=== PATIENT | male | born 1945 | race Caucasian/White ===

== ENCOUNTER → 2022-10-10 | Outpatient (CLI) | payer MEDICARE, OTHER ==
[~2022-10-10] MED LIST: RT-ALBUTEROL SULF 2.5 MG/3 ML PRE-MIX VIAL INH ONE
== END ==
LOC: RT 08:43
PROVIDERS: ATTEND Internal Medicine Hematology & Oncology
DX: C34.32 Malignant neoplasm of lower lobe, left bronchus or lung (principal)
CPT/HCPCS: 94060; 94726; 94729

== ENCOUNTER 2022-10-14 10:56 | Day surgery (SDC) | payer MEDICARE, OTHER ==
[~2022-10-14] VITALS: Ht 180.3 cm; Wt 62.5 kg
[2022-10-14] VITALS (7 sets, daily range): BP systolic 116–146; BP diastolic 63–87
[2022-10-14] MEDS ORDERED: ceFAZolin INJECTION 2,000 MG in NS (IVPB) 50 ML 50 ML IV ONE (11:30)
[2022-10-14] MEDS ORDERED: ceFAZolin INJECTION 2,000 MG ONE (11:32)
[2022-10-14] MEDS ORDERED: NS (IVPB) 50 ML 50 ML ONE (11:32)
[2022-10-14] MEDS ORDERED: LACTATED RINGERS 1,000 ML 1,000 ML IV PRN (11:45)
--- NOTE | 2022-10-14 12:40 | Progress Note-Pre Operative ---
Pre-Operative Progress Note Date of Available H&P: Oct 13, 2022 Date H&P Reviewed: Oct 14, 2022 Time H&P Reviewed: 12:39 History & Physical: H&P Reviewed, Patient Examed, No changes noted Pre-Operative Diagnosis: Left lung cancer SONYA REAL DO Oct 14, 2022 12:40
[2022-10-14] MEDS ORDERED: 0.9% SODIUM CHLORIDE PF INJ 20 ML VIAL ONE (13:12)
[2022-10-14] MEDS ORDERED: HEParin (CENTRAL IV FLUSH) 500 UNIT/5 ML SYR ONE (13:13)
[2022-10-14] MEDS ORDERED: LIDOCAINE/EPI 1%-1:200,000 (XYLOCAINE) 30 ML VIAL ONE (13:14)
--- NOTE | 2022-10-14 14:09 | Discharge Inst-Simple/Standard ---
Discharge Inst-Standard Patient Instructions/Follow Up Plan of Care/Instructions/FU: 2 weeks Josselyn Activity as Tolerated: No Discharge Diet: Regular Diet Other Inst to Patient Follow up Appt: Make appointment for 2 week. Instructions: No lifting greater than 10 pounds. No strenuous activity. May shower in 24 hours, no tub bath or soaking. Use incentive spirometer at home as directed. No Smoking Skin/Wound Care: You have special glue over your incision that will fall off on it's own. Ice pack on 15 min and off 30 min and then repeat for first 48 hours. Symptoms to Report: Appetite Changes, Extremity Discoloration, Numbness/Tingling, Swelling Increased, Bleeding Excessive, Eyesight Changes, Pain Increased, Urine Color Change, Constipation(Persistent), Fever over 101 degree F, Pain/Pressure in chest, Urinating Difficulty, Cough Up/Vomit Blood, Heart Beat Irreg/Pounding, Pain/Pressure in jaw, Vaginal Bleeding Increase, Cramps in feet or legs, Lig htheadedness, Pain/Pressure in shoulder, Diarrhea(Persistent), Memory Changes Suddenly, Questions/Concerns, Weight gain consecutive days, Dizziness/Fainting, Nausea/Vomiting, Shortness of Breath, Weight gain over 2 pounds If questions or concerns contact your physician Or seek help at emergency department. SONYA REAL DO Oct 14, 2022 14:09
--- NOTE | 2022-10-14 14:14 | Anesthesia-General Post-Op ---
MAC Patient Condition Mental Status/LOC: Same as Preop Cardiovascular: Satisfactory Nausea/Vomiting: Absent Respiratory: Satisfactory Pain: Controlled Complications: Absent Post Op Complications Complications None Follow Up Care/Instructions Patient Instructions None needed. Anesthesiology Discharge Order Discharge Order Patient is doing well, no complaints, stable vital signs, no apparent adverse anesthesia problems. No complications reported per nursing. SHAISTA CRAIN CRNA Oct 14, 2022 14:14
--- NOTE | 2022-10-14 14:44 | Diagnostic Imaging Report ---
CHEST 1 VIEW, AP/PA ONLY Indication: Port placement Comparison: None available. Findings: Right IJ Port-A-Cath with tip terminating in the mid SVC. Left midlung zone masslike consolidation is suspicious for neoplasm. Bilateral upper lobe consolidations could be infectious or neoplastic. Small left pleural effusion. No pneumothorax. Impression: 1. Well-positioned right IJ Port-A-Cath without pneumothorax. 2. Bilateral pulmonary masses and consolidations may relate to malignancy. Correlation with patient's cancer history is recommended. Dictated by: Dictated on workstation # [id number]
--- NOTE | 2022-10-14 15:56 | Progress Note-Post Operative ---
Post-Operative Progess Note Surgeon (s)/Surface Supervisor (s) Surgeon SONYA REAL DO Surface Supervisor: na Pre-Operative Diagnosis Left lung cancer Post-Operative Diagnosis same Procedure & Operative Findings Date of Procedure 10/14/22 Procedure Performed/Findings PROCEDURE: Right internal jugular port placement using ultrasound guidance. COMPLICATIONS: None. INDICATIONS: The patient is a 77 year old male with lung cancer. Patient understands the risks and benefits of port placement and wished to proceed with the procedure. Consent was signed on the chart. PROCEDURE: The patient was taken to the operating suite, was prepped and draped in the sterile fashion. A surgical pause was performed. Ultrasound was used to locate the internal jugular vein. Once located anesthetic was infiltrated above it. Using micro-access kit, the right internal vein was accessed. Dark nonpulsatile blood was withdrawn. The wire was inserted. Fluoroscopy assured proper placement. The needle was removed. The micro-access dilator was advanced over the wire and the wire was removed. The regular wire was inserted and fluoroscopy assured proper placement. The wire was then secured. Local anesthetic was used to anesthetize from the neck for tunneling down to the right chest and for pocket creation. A 15 blade scalpel was used to make an incision over the right chest. Cautery was used to dissect down to the pectoral fascia. A pocket was created with blunt dissection. The dilator sheath was then advanced over the wire under fluoroscopy and the dilator and wire were removed. The Groshong catheter was inserted through the sheath and the sheath was then removed. The Groshong wire was removed. The catheter was then tunneled to the right chest pocket. Fluoroscopy was used to cut to length and this was then attached to the port which was then placed within the pocket. The port was then accessed without difficulty. It was then flushed with saline and then heparin. The subcutaneous tissues were then reapproximated using 3-0 Vicryl. The areas were then washed and dried. Skin Affix was placed over incision. The insertion point of the neck Skin Affix was placed over the incision. The patient tolerated the procedure well without complication and was taken to recovery room in stable condition. Chest x-ray is pending. Anesthesia Type mac c local Estimated Blood Loss Estimated blood loss (mL): minimal Specimens/Packing Specimens Removed SONYA Smallwood DO Oct 14, 2022 15:56
--- NOTE | 2022-10-14 17:15 | Diagnostic Imaging Report ---
INDICATION: Port-A-Cath placement Intraoperative fluoroscopy views were obtained during Port-A-Cath placement in surgery. Four views were obtained, 20.9 seconds of fluoroscopy time was used. Intraoperative views demonstrate Port-A-Cath over the right chest with catheter entering the right internal jugular vein and catheter tip overlying the mid SVC. The study is otherwise limited. 1.75 mGy of exposure. IMPRESSION: Intraoperative views demonstrate Port-A-Cath placement as above. Dictated by: Dictated on workstation # [id number]
== END 2022-10-14 15:10 ==
LOC: SDC 10:56
PROVIDERS: ATTEND Surgery
DX: C34.92 Malignant neoplasm of unspecified part of left bronchus or lung (principal); F17.290 Nicotine dependence, other tobacco product, uncomplicated
CPT/HCPCS: 36561; 71045; 76000; 87081; C1788

== ENCOUNTER 2022-11-11 08:00 | Outpatient (RCR) | payer MEDICARE, OTHER ==
[2022-10-28 08:18] LABS: BASOPHILS % (AUTO) 1 % (0-10); EOSINOPHILS # (AUTO) 0.1 10^3/uL (0.0-0.3); EOSINOPHILS % (AUTO) 2 % (0-10); HEMATOCRIT 44 % (40-54); HEMOGLOBIN 13.8 g/dL (13.3-17.7); LYMPHOCYTES # (AUTO) 0.9 10^3/uL (1.0-4.0); LYMPHOCYTES % (AUTO) 16 % (12-44); MEAN CORPUSCULAR HEMOGLOBIN 28 pg (25-34); MEAN CORPUSCULAR HGB CONC 32 g/dL (32-36); MEAN CORPUSCULAR VOLUME 88 fL (80-99); MEAN PLATELET VOLUME 8.6 fL (9.0-12.2); MONOCYTES # (AUTO) 0.3 10^3/uL (0.0-1.0); MONOCYTES % (AUTO) 6 % (0-12); NEUTROPHILS # (AUTO) 4.2 10^3/uL (1.8-7.8); NEUTROPHILS % (AUTO) 76 % (42-75); PLATELET COUNT 473 10^3/uL (130-400); WHITE BLOOD COUNT 5.5 10^3/uL (4.3-11.0)
[2022-10-28 08:34] LABS: ALBUMIN 3.5 GM/DL (3.2-4.5); CALCIUM 10.1 MG/DL (8.5-10.1); CREATININE SERUM 0.73 MG/DL (0.60-1.30); POTASSIUM 3.9 MMOL/L (3.6-5.0); TOTAL PROTEIN 7.1 GM/DL (6.4-8.2)
[2022-10-31 11:40] VITALS: BP 136/74
[2022-10-31] MEDS: diphenhydrAMINE INJ 50 MG/ML VIAL IV PRN (11:48)
[2022-10-31] MEDS: FAMOTIDINE INJ 20MG/2ML VIAL IV SCH (11:49)
[2022-10-31] MEDS: FOSAPREPITANT (CANCER CENTER) 150 MG in NS (IVPB) CANCER CENTER ONLY 150 ML IV SCH (11:49)
[2022-10-31] MEDS: NS IV 1000 ML (CANCER CTR) IV SCH (11:49)
[2022-10-31] MEDS: PALONOSETRON HCL 0.25 MG, dexAMETHasone sodium phosphate 10 MG in NS (IVPB) 50 ML 50 ML IV SCH (12:06)
[2022-10-31] MEDS: NORMAL SALINE IV SCH (12:35)
[2022-10-31] MEDS: PACLITAXEL IV SCH (12:35)
[2022-10-31] MEDS: D5W IV SCH (13:36)
[2022-10-31] MEDS: CARBOPLATIN IV SCH (13:36)
[2022-11-04 08:41] LABS: BASOPHILS % (AUTO) 1 % (0-10); EOSINOPHILS % (AUTO) 1 % (0-10); HEMATOCRIT 40 % (40-54); HEMOGLOBIN 12.8 g/dL (13.3-17.7); LYMPHOCYTES # (AUTO) 0.3 10^3/uL (1.0-4.0); LYMPHOCYTES % (AUTO) 6 % (12-44); MEAN CORPUSCULAR HEMOGLOBIN 28 pg (25-34); MEAN CORPUSCULAR HGB CONC 32 g/dL (32-36); MEAN CORPUSCULAR VOLUME 86 fL (80-99); MEAN PLATELET VOLUME 8.9 fL (9.0-12.2); MONOCYTES # (AUTO) 0.1 10^3/uL (0.0-1.0); MONOCYTES % (AUTO) 2 % (0-12); NEUTROPHILS # (AUTO) 5.5 10^3/uL (1.8-7.8); NEUTROPHILS % (AUTO) 91 % (42-75); PLATELET COUNT 402 10^3/uL (130-400)
[2022-11-04 09:20] LABS: ALBUMIN 3.2 GM/DL (3.2-4.5); BILIRUBIN,TOTAL 0.6 MG/DL (0.1-1.0); CREATININE SERUM 0.69 MG/DL (0.60-1.30); POTASSIUM 4.7 MMOL/L (3.6-5.0); TOTAL PROTEIN 5.9 GM/DL (6.4-8.2)
[2022-11-07] MEDS: FOSAPREPITANT (CANCER CENTER) 150 MG in NS (IVPB) CANCER CENTER ONLY 150 ML IV SCH (10:05)
[2022-11-07] MEDS: NS IV 1000 ML (CANCER CTR) IV SCH (10:05)
[2022-11-07] MEDS: FAMOTIDINE INJ 20MG/2ML VIAL IV SCH (10:07)
[2022-11-07] MEDS: diphenhydrAMINE INJ 50 MG/ML VIAL IV PRN (10:08)
[2022-11-07 10:21] VITALS: BP 143/70
[2022-11-07] MEDS: PALONOSETRON HCL 0.25 MG, dexAMETHasone sodium phosphate 10 MG in NS (IVPB) 50 ML 50 ML IV SCH (10:36)
[2022-11-07] MEDS: NORMAL SALINE IV SCH (10:49)
[2022-11-07] MEDS: PACLITAXEL IV SCH (10:49)
[2022-11-07] MEDS: CARBOPLATIN IV SCH (13:33)
[2022-11-07] MEDS: D5W IV SCH (13:33)
[~2022-11-11] VITALS: Ht 180.3 cm; Wt 61.0 kg
[~2022-11-11 08:00] MED LIST changes: +DEXAMETHASONE SODIUM PHOSPHATE IV ONE; +HEParin (CENTRAL IV FLUSH) 500 UNIT/5 ML SYR IV PRN; +NS IV ONE; -RT-ALBUTEROL SULF 2.5 MG/3 ML PRE-MIX VIAL INH ONE
[2022-11-11 10:07] LABS: BASOPHILS % (AUTO) 0 % (0-10); EOSINOPHILS % (AUTO) 1 % (0-10); HEMATOCRIT 38 % (40-54); HEMOGLOBIN 12.2 g/dL (13.3-17.7); LYMPHOCYTES # (AUTO) 0.3 10^3/uL (1.0-4.0); LYMPHOCYTES % (AUTO) 5 % (12-44); MEAN CORPUSCULAR HEMOGLOBIN 28 pg (25-34); MEAN CORPUSCULAR HGB CONC 32 g/dL (32-36); MEAN CORPUSCULAR VOLUME 87 fL (80-99); MEAN PLATELET VOLUME 9.5 fL (9.0-12.2); MONOCYTES # (AUTO) 0.1 10^3/uL (0.0-1.0); MONOCYTES % (AUTO) 3 % (0-12); NEUTROPHILS # (AUTO) 4.6 10^3/uL (1.8-7.8); NEUTROPHILS % (AUTO) 91 % (42-75); PLATELET COUNT 407 10^3/uL (130-400); WHITE BLOOD COUNT 5.1 10^3/uL (4.3-11.0)
[2022-11-11 10:19] LABS: ALBUMIN 3.2 GM/DL (3.2-4.5); BILIRUBIN,TOTAL 0.5 MG/DL (0.1-1.0); CALCIUM 9.3 MG/DL (8.5-10.1); CREATININE SERUM 0.67 MG/DL (0.60-1.30); POTASSIUM 4.2 MMOL/L (3.6-5.0); TOTAL PROTEIN 6.3 GM/DL (6.4-8.2)
== END 2022-11-12 | disposition home or self-care (01) ==
LOC: ONC 08:00
PROVIDERS: ATTEND Internal Medicine Hematology & Oncology
DX: Z51.0 Encounter for antineoplastic radiation therapy (principal); C34.90 Malignant neoplasm of unspecified part of unspecified bronchus or lung; Z45.2 Encounter for adjustment and management of vascular access device
CPT/HCPCS: 36415; 77300; 77301; 77334; 77336; 77338; 77386; 77470; 80053; 85025; 96367; 96375; 96413; 96417; 96523; 99204; 99205

== ENCOUNTER 2022-11-23 08:21 | Outpatient (RCR) | payer MEDICARE, OTHER ==
[2022-11-14] MEDS: FAMOTIDINE INJ 20MG/2ML VIAL IV SCH (09:58)
[2022-11-14] MEDS: FOSAPREPITANT (CANCER CENTER) 150 MG in NS (IVPB) CANCER CENTER ONLY 150 ML IV SCH (09:58)
[2022-11-14] MEDS: NS IV 1000 ML (CANCER CTR) IV SCH (09:58)
[2022-11-14] MEDS: diphenhydrAMINE INJ 50 MG/ML VIAL IV PRN (09:58)
[2022-11-14 10:05] VITALS: BP 118/63
[2022-11-14] MEDS: PALONOSETRON HCL 0.25 MG, dexAMETHasone sodium phosphate 10 MG in NS (IVPB) 50 ML 50 ML IV SCH (10:30)
[2022-11-14] MEDS: NORMAL SALINE IV SCH (10:43)
[2022-11-14] MEDS: PACLITAXEL IV SCH (10:43)
[2022-11-14] MEDS: D5W IV SCH (12:05)
[2022-11-14] MEDS: CARBOPLATIN IV SCH (12:05)
[2022-11-18 09:00] LABS: BASOPHILS % (AUTO) 0 % (0-10); EOSINOPHILS % (AUTO) 0 % (0-10); HEMATOCRIT 35 % (40-54); HEMOGLOBIN 11.8 g/dL (13.3-17.7); LYMPHOCYTES # (AUTO) 0.1 10^3/uL (1.0-4.0); LYMPHOCYTES % (AUTO) 2 % (12-44); MEAN CORPUSCULAR HEMOGLOBIN 28 pg (25-34); MEAN CORPUSCULAR HGB CONC 33 g/dL (32-36); MEAN CORPUSCULAR VOLUME 84 fL (80-99); MEAN PLATELET VOLUME 9.2 fL (9.0-12.2); MONOCYTES # (AUTO) 0.1 10^3/uL (0.0-1.0); MONOCYTES % (AUTO) 2 % (0-12); NEUTROPHILS # (AUTO) 4.4 10^3/uL (1.8-7.8); NEUTROPHILS % (AUTO) 94 % (42-75); PLATELET COUNT 329 10^3/uL (130-400); WHITE BLOOD COUNT 4.6 10^3/uL (4.3-11.0)
[2022-11-18 09:22] LABS: ALBUMIN 3.1 GM/DL (3.2-4.5); BILIRUBIN,TOTAL 0.6 MG/DL (0.1-1.0); CALCIUM 9.1 MG/DL (8.5-10.1); CREATININE SERUM 0.66 MG/DL (0.60-1.30); POTASSIUM 4.4 MMOL/L (3.6-5.0); TOTAL PROTEIN 6.3 GM/DL (6.4-8.2)
[2022-11-21] MEDS: FOSAPREPITANT (CANCER CENTER) 150 MG in NS (IVPB) CANCER CENTER ONLY 150 ML IV SCH (09:41)
[2022-11-21] MEDS: NS IV 1000 ML (CANCER CTR) IV SCH (09:41)
[2022-11-21] MEDS: diphenhydrAMINE INJ 50 MG/ML VIAL IV PRN (09:42)
[2022-11-21] MEDS: FAMOTIDINE INJ 20MG/2ML VIAL IV SCH (09:42)
[2022-11-21 09:53] VITALS: BP 103/63
[2022-11-21] MEDS: PALONOSETRON HCL 0.25 MG, dexAMETHasone sodium phosphate 10 MG in NS (IVPB) 50 ML 50 ML IV SCH (10:09)
[2022-11-21] MEDS: NORMAL SALINE IV SCH (10:24)
[2022-11-21] MEDS: PACLITAXEL IV SCH (10:24)
[2022-11-21] MEDS: CARBOPLATIN IV SCH (11:43)
[2022-11-21] MEDS: D5W IV SCH (11:43)
[~2022-11-23 08:21] MED LIST changes: -DEXAMETHASONE SODIUM PHOSPHATE IV ONE; -NS IV ONE
[2022-11-24] MEDS ORDERED: ACET-2267 PO (10:20)
[2022-11-25] MEDS ORDERED: SULF1TAB38 PO (11:52)
== END 2022-11-28 08:59 | disposition home or self-care (01) ==
LOC: ONC 08:21
PROVIDERS: ATTEND Internal Medicine Hematology & Oncology
DX: Z51.11 Encounter for antineoplastic chemotherapy (principal); Z51.0 Encounter for antineoplastic radiation therapy; Z45.2 Encounter for adjustment and management of vascular access device; C34.90 Malignant neoplasm of unspecified part of unspecified bronchus or lung
CPT/HCPCS: 77336; 77386; 80053; 85025; 96367; 96375; 96413; 96417; 96523; 99214

== ENCOUNTER 2022-11-23 08:43 | Inpatient (IN) | payer MEDICARE, OTHER ==
[~2022-11-23] VITALS: Ht 180.3 cm; Wt 62.7 kg
[2022-11-23 09:30] LABS: BASOPHILS % (AUTO) 0 % (0-10); EOSINOPHILS % (AUTO) 0 % (0-10); HEMATOCRIT 34 % (40-54); HEMOGLOBIN 11.2 g/dL (13.3-17.7); LYMPHOCYTES # (AUTO) 0.1 10^3/uL (1.0-4.0); LYMPHOCYTES % (AUTO) 2 % (12-44); MEAN CORPUSCULAR HEMOGLOBIN 28 pg (25-34); MEAN CORPUSCULAR HGB CONC 33 g/dL (32-36); MEAN CORPUSCULAR VOLUME 83 fL (80-99); MEAN PLATELET VOLUME 9.1 fL (9.0-12.2); MONOCYTES # (AUTO) 0.1 10^3/uL (0.0-1.0); MONOCYTES % (AUTO) 1 % (0-12); NEUTROPHILS % (AUTO) 97 % (42-75); PLATELET COUNT 329 10^3/uL (130-400); WHITE BLOOD COUNT 5.1 10^3/uL (4.3-11.0)
--- NOTE | 2022-11-23 09:35 | ED Fever ---
History of Present Illness General Chief Complaint: Fever-Adult/Adol Stated Complaint: FEVER | SHAKING | WEAKNESS Source: patient (SUZANNESONYA) History of Present Illness Date Seen by Provider: Nov 23, 2022 Time Seen by Provider: 09:06 Initial Comments Patient is seen this morning after developing fever and chills following radia tion treatment this morning at [facility]. The patient currently has lung cancer in which he has received 4 rounds of chemo and received his 18th radiation treatment this morning. He has never had a reaction like this to any of his cancer treatments before. He has not tried taking any tylenol or any other medications to bring down his fever at this point. He recently had a port placed on October 14 of this year. He denies any other symptoms related to this timeframe of when his fever and chills started. He has shortness of breath, that he says is chronic but denies nausea, vomiting, diarrhea, abdominal pain, palpitations, syncope. Timing/Duration: this morning Fever Quality: greater than 100.5 F (100.6) Fever Therapy INFORMATION SECURITY CONSULTANT: none Associated Symptoms: shortness of breath (SONYA PALACIOS) Initial Comments Last chemotherapy treatment was November 21. He did finish his radiation today. (SHAVON ALSTON MD) Allergies and Home Medications Allergies Coded Allergies: No Known Drug Allergies (Unverified , 10/10/22) Patient Home Medication List Home Medication List Reviewed: Yes (SONYA PALACIOS) Review of Systems Review of Systems Constitutional: chills, fever, weakness EENTM: no symptoms reported Respiratory: dyspnea on exertion, short of breath Cardiovascular: no symptoms reported; No chest pain, No syncope Gastrointestinal: No abdominal pain, No diarrhea, No nausea, No vomiting (SONYA PALACIOS) Past Zzkvypn-Wxinxx-Boyplk Hx Seasonal Allergies Seasonal Allergies: No (SONYA PALACIOS) Past Medical History Surgeries: Yes Orthopedic Respiratory: No Cardiac: No Neurological: No Genitourinary: No Gastrointestinal: No Musculoskeletal: Yes (HX OF BONE SPUR IN RIGHT FOOT) Endocrine: No HEENT: No Cancer: Yes (CURRENT LUNG) Lung Psychosocial: Yes Sleep Difficulties Integumentary: No Blood Disorders: No (SONYA PALACIOS) Physical Exam Vital Signs - First Documented 11/23/22 09:22 Temp 38.1 Pulse 111 Resp 20 B/P (MAP) 168/77 (107) Pulse Ox 94 O2 Delivery Room Air (SHAVON ALSTON MD) Capillary Refill : (SONYA PALACIOS) Height: '" Weight: lbs. oz. kg; 18.82 BMI Method: General Appearance: no apparent distress, thin Respiratory: chest non-tender Cardiovascular: regular rate, rhythm, no gallop, no murmur Neurologic/Psychiatric: alert, normal mood/affect, oriented x 3 (SONYA PALACIOS) Focused Exam Reason for ruling out sepsis: No source of infection, sepsis not ruled out Lactate Level 11/23/22 09:22: Lactic Acid Level 2.00 (SHAVON ALSTON MD) Time of Focused Exam: 14:10 Respiratory: Lungs Clear, No Respiratory Distress Cardiovascular: Regular Rate, Rhythm, No Edema Skin: normal color Lactic Acid Level Laboratory Tests Test 11/23/22 09:22 Lactic Acid Level 2.00 MMOL/L (0.50-2.00) (SHAVON ALSTON MD) Within 3hrs of presentation: Admin fluids, Admin 30ml/kg IBW due to BMI>30, Admin ABX, Blood cultures prior to ABX's, Focus exam, Lactate level (SHAVON ALSTON MD) Progress/Results/Core Measures Suspected Sepsis SIRS Temperature: Pulse: Respiratory Rate: Laboratory Tests 11/23/22 09:22: Blood Pressure / Mean: 11/23/22 09:22: Laboratory Tests 11/23/22 09:22: (SONYA PALACIOS) Results/Orders Lab Results Laboratory Tests Test 11/23/22 09:22 11/23/22 10:39 Range/Units White Blood Count 5.1 4.3-11.0 10^3/uL Red Blood Count 4.05 L 4.30-5.52 10^6/uL Hemoglobin 11.2 L 13.3-17.7 g/dL Hematocrit 34 L 40-54 % Mean Corpuscular Volume 83 80-99 fL Mean Corpuscular Hemoglobin 28 25-34 pg Mean Corpuscular Hemoglobin Concent 33 32-36 g/dL Red Cell Distribution Width 14.8 H 10.0-14.5 % Platelet Count 329 130-400 10^3/uL Mean Platelet Volume 9.1 9.0-12.2 fL Immature Granulocyte % (Auto) 0 % Neutrophils (%) (Auto) 97 H 42-75 % Lymphocytes (%) (Auto) 2 L 12-44 % Monocytes (%) (Auto) 1 0-12 % Eosinophils (%) (Auto) 0 0-10 % Basophils (%) (Auto) 0 0-10 % Neutrophils # (Auto) 5.0 1.8-7.8 10^3/uL Lymphocytes # (Auto) 0.1 L 1.0-4.0 10^3/uL Monocytes # (Auto) 0.1 0.0-1.0 10^3/uL Eosinophils # (Auto) 0.0 0.0-0.3 10^3/uL Basophils # (Auto) 0.0 0.0-0.1 10^3/uL Immature Granulocyte # (Auto) 0.0 0.0-0.1 10^3/uL Neutrophils % (Manual) 93 % Lymphocytes % (Manual) 4 % Monocytes % (Manual) 2 % Eosinophils % (Manual) 0 % Basophils % (Manual) 0 % Band Neutrophils 1 % Poikilocytosis SLIGHT Prothrombin Time 13.6 12.2-14.7 SEC INR Comment 1.0 0.8-1.4 Activated Partial Thromboplast Time 32 24-35 SEC Sodium Level 131 L 135-145 MMOL/L Potassium Level 4.5 3.6-5.0 MMOL/L Chloride Level 99 98-107 MMOL/L Carbon Dioxide Level 23 21-32 MMOL/L Anion Gap 9 5-14 MMOL/L Blood Urea Nitrogen 22 H 7-18 MG/DL Creatinine 0.58 L 0.60-1.30 MG/DL Estimat Glomerular Filtration Rate 100 BUN/Creatinine Ratio 38 Glucose Level 105 70-105 MG/DL Lactic Acid Level 2.00 0.50-2.00 MMOL/L Calcium Level 9.1 8.5-10.1 MG/DL Corrected Calcium 9.9 8.5-10.1 MG/DL Total Bilirubin 0.4 0.1-1.0 MG/DL Aspartate Amino Transf (AST/SGOT) 28 5-34 U/L Alanine Aminotransferase (ALT/SGPT) 28 0-55 U/L Alkaline Phosphatase 59 40-136 U/L C-Reactive Protein High Sensitivity 5.72 H 0.00-0.50 MG/DL Total Protein 6.1 L 6.4-8.2 GM/DL Albumin 3.0 L 3.2-4.5 GM/DL Influenza Type A (RT-PCR) Not Detected Not Detecte Influenza Type B (RT-PCR) Not Detected Not Detecte SARS-CoV-2 RNA (RT-PCR) Not Detected Not Detecte Urine Color YELLOW Urine Clarity CLEAR Urine pH 6.5 5-9 Urine Specific [place] 1.020 1.016-1.022 Urine Protein 1+ H NEGATIVE Urine Glucose (UA) NEGATIVE NEGATIVE Urine Ketones NEGATIVE NEGATIVE Urine Nitrite NEGATIVE NEGATIVE Urine Bilirubin NEGATIVE NEGATIVE Urine Urobilinogen 1.0 < = 1.0 MG/DL Urine Leukocyte Esterase NEGATIVE NEGATIVE Urine RBC (Auto) NEGATIVE NEGATIVE Urine RBC NONE /HPF Urine WBC RARE /HPF Urine Squamous Epithelial Cells 0-2 /HPF Urine Crystals NONE /LPF Urine Bacteria TRACE /HPF Urine Casts NONE /LPF Urine Mucus NEGATIVE /LPF Urine Culture Indicated NO (SHAVON ALSTON MD) My Orders Orders - SHAVON ALSTON MD Cbc And Automated Diff (11/23/22:) Comprehensive Metabolic Panel (11/23/22 09:13) Blood Culture (11/23/22 09:13) Sputum Culture (11/23/22:13) Urinalysis (11/23/22:) Urine Culture (11/23/22:) Protime With Inr (11/23/22:13) Partial Thromboplastin Time (11/23/22:13) Chest 1 View, Ap/Pa Only (11/23/22:13) Ed Iv/Invasive Line Start (11/23/22:13) Vital Signs Adult Sepsis Patie Q15M (11/23/22 09:13) O2 (11/23/22 09:13) Remove Rings In Anticipation O (11/23/22:13) Lactic Acid Analyzer (11/23/22:13) Hs C Reactive Protein (11/23/22:13) Covid 19 Inhouse Test (11/23/22 09:13) Influenza A And B By Pcr (11/23/22 09:13) Manual Differential (11/23/22 09:22) Acetaminophen Tablet (Acetaminophen Ta (11/23/22 10:00) Ns Iv 1000 Ml (Ns Iv 1000 Ml) (11/23/22 10:00) Vancomycin Injection (Vancomycin Injecti (11/23/22 11:45) Vancomycin Injection (Vancomycin Injecti (11/23/22 12:45) Cefepime Injection (Cefepime Injection) (11/23/22 11:45) Ns Iv 1000 Ml (Ns Iv 1000 Ml) (11/23/22 11:45) Vancomycin 1250mg/250ml Premix (Vancomyc (11/23/22 12:00) Ed Admission (Communication) (11/23/22 14:14) Code/Resuscitation (11/23/22 14:57) (SHAVON ALSTON MD) Medications Given in ED Current Medications Medications Dose Ordered Sig/Kacy Route Start Time Stop Time Status Last Admin Dose Admin Acetaminophen 1,000 mg ONCE ONCE PO 11/23/22 10:00 11/23/22 10:01 DC 11/23/22 10:23 1,000 MG Cefepime HCl 2000 mg/Sodium Chloride 50 ml @ 100 mls/hr ONCE ONCE IV 11/23/22 11:45 11/23/22 12:14 DC 11/23/22 11:53 100 MLS/HR (SHAVON ALSTON MD) Vital Signs/I&O 11/23/22 09:22 Temp 38.1 Pulse 111 Resp 20 B/P (MAP) 168/77 (107) Pulse Ox 94 O2 Delivery Room Air (SHAVON ALSTON MD) Vital Signs/I&O Capillary Refill : (SONYA PALACIOS) Progress Note : Time: 09:22 Progress Note 09:22 - Patient presents with fever and chills. His current temperature is 38.1 Celcius in the ER. These symptoms began when he was receiving his radiation treatments here at [facility]. His oncologist here are Dr. Lugo and Dr. Jenkins. He has received 4 chemo treatments and 18 radiation treatments at this point with no fever or chills on any prior visits. Per the patient he has no other medical problems besides to current lung cancer. He states that he had a port placement on October 14. Plan is to do a Sepsis workup including CBC, CMP, coagulation studies, COVID and Flu test. He will also be given Tylenol to help with fever currently. (SONYA PALACIOS) Progress Note #1: Progress Note Patient was interviewed and examined by me personally along with ZAINAB Méndez-Michelle. He was found to be tachycardic but in no distress. Septic work-up was pursued. Labs were obtained, reviewed, and interpreted by me in their entirety. CBC was relatively unremarkable with only mild anemia noted with hemoglobin of 11.2. WBC was 5.1 and platelets were 329. Neutrophil count was normal on the differential. Lactic acid was normal at 2.0. Coagulation panel was normal. CRP was modestly elevated at 5.72. Albumin was low at 3.0. CMP was otherwise unremarkable. Urinalysis was normal. Viral swabs for influenza and COVID-19 was negative. Chest x-ray showed no adverse changes from prior per radiologist's report noted below. Patient was hydrated with 2 L of IV fluid. He continued to have soft blood pressures and occasional hypotensive measurements. Some of the hypotensive measurements were due to position or bending his arm. However, some of the hypotensive measurements were noted to be legitimate. Blood pressure improved slightly after the 2 L of IV fluid but were still in the low normotensive range most of the time. Patient received empiric antibiotic therapy with vancomycin and cefepime. No definite source of infection was identified. I discussed the case with Dr. Jenkins, patient's oncologist. He has concerned that the port may be a source of infection. Dr. Jenkins stated he would be available by phone if needed for consultation. Because of patient's immunocompromise state and persistent lower blood pressure, admission to the ICU was sought. I discussed CODE STATUS with the patient and he requested a modified code. He would like to permit intubation but does not want cardiac code with CPR, defibrillation, etc. Case was discussed with Dr. Randall, hospitalist on-call. He is agreeable to admission. Progress Note #2: Time: 15:26 Progress Note Report was given to eICU. (SHAVON ALSTON MD) Diagnostic Imaging Diagonstic Imaging: Xray Plain Films/CT/US/NM/MRI: chest Comments NAME: DIANE ANDREWS [facility] REC#: [id number] PT STATUS: REG ER : 1945 PHYSICIAN: SHAVON ALSTON MD ADMIT DATE: 11/23/22/ER Signed Date of Exam:11/23/22 CHEST 1 VIEW, AP/PA ONLY INDICATION: Fever. Frontal chest obtained at 09:41 a.m. compared 10/14/2022. FINDINGS: There is no change in extensive upper lobe infiltrates. Parenchymal opacity in the left midlung appears to be decrease in size and may represent infiltrate or improving mass. There is no pneumothorax or pleural fluid. Port-A-Cath is unchanged. IMPRESSION: No change in bilateral upper lobe infiltrates. Left perihilar density appears to be decreased in size and may represent decreasing mass or improving infiltrate. Dictated by: Dictated on workstation # [id number] Dict: 11/23/2252 Trans: 11/23/22 0957 [id number] Interpreted by: DOMI ODELL MD Electronically signed by: DOMI ODELL MD 11/23/22 0957 (SHAVON ALSTON MD) Departure Communication (Admissions) Time/Spoke to Admitting Phy: 14:00 Dr. Randall (SHAVON ALSTON MD) Impression Primary Impression: Fever of unknown origin Additional Impressions: Immunocompromised Hypotension Qualified Codes: I95.9 - Hypotension, unspecified Lung cancer Qualified Codes: C34.90 - Malignant neoplasm of unspecified part of unspecified bronchus or lung Disposition: ADMITTED INPATIENT Condition: Stable Admissions Decision to Admit Reason: Admit from ER (General) Decision to Admit/Date: Nov 23, 2022 Time/Decision to Admit Time: 14:00 (SHAVON ALSTON MD) Departure-Patient Inst. Referrals: BUDDY TURPIN (PCP/Family) Primary Care Physician Medical Student Attestation and Attending Note: I have personally interviewed and examined this patient along with WALE Méndez. I have reviewed student documentation including history, physical, and assessments. I agree with the documentation except where otherwise noted. Exam: General: Alert, oriented, no acute distress, well developed, thin HEENT: Normocephalic and atraumatic Heart: Regular tachycardia without murmur Lungs: Clear to auscultation bilaterally, mild tachypnea Abdomen: Soft, nontender, nondistended, normal bowel sounds Neuropsych: Alert, oriented, no focal deficits Skin: Warm and dry without rashes (SHAVON ALSTON MD) SONYA PALACIOS Nov 23, 2022 09:35 SHAVON ALSTON MD Nov 23, 2022 14:14
[2022-11-23 09:42] LABS: POTASSIUM 4.5 MMOL/L (3.6-5.0); PROTHROMBIN TIME PATIENT 13.6 SEC (12.2-14.7)
[2022-11-23 09:43] LABS: CALCIUM 9.1 MG/DL (8.5-10.1)
[2022-11-23 09:44] LABS: TOTAL PROTEIN 6.1 GM/DL (6.4-8.2)
[2022-11-23 09:46] LABS: BILIRUBIN,TOTAL 0.4 MG/DL (0.1-1.0)
[2022-11-23 09:48] LABS: CREATININE SERUM 0.58 MG/DL (0.60-1.30)
[2022-11-23 09:49] LABS: BAND NEUTROPHILS 1 %; BASOPHILS % (MANUAL) 0 %; EOSINOPHILS % (MANUAL) 0 %; LYMPHOCYTES % (MANUAL) 4 %; MONOCYTES % (MANUAL) 2 %; NEUTROPHILS % (MANUAL) 93 %; POIKILOCYTOSIS SLIGHT
--- NOTE | 2022-11-23 09:54 | Diagnostic Imaging Report ---
INDICATION: Fever. Frontal chest obtained at 09:41 a.m. compared 10/14/2022. FINDINGS: There is no change in extensive upper lobe infiltrates. Parenchymal opacity in the left midlung appears to be decrease in size and may represent infiltrate or improving mass. There is no pneumothorax or pleural fluid. Port-A-Cath is unchanged. IMPRESSION: No change in bilateral upper lobe infiltrates. Left perihilar density appears to be decreased in size and may represent decreasing mass or improving infiltrate. Dictated by: Dictated on workstation # [id number]
[2022-11-23] MEDS ORDERED: NS IV 1000 ML 1,000 ML IV SCH ×2 (10:00→11:45)
[2022-11-23] MEDS ORDERED: ACETAMINOPHEN 500 MG TABLET PO ONE (10:00)
[2022-11-23 10:54] LABS: CLARITY,URINE CLEAR; COLOR,URINE YELLOW; PH,URINE 6.5 (5-9)
[2022-11-23 10:55] LABS: BACTERIA,URINE TRACE /HPF; BILIRUBIN,URINE NEGATIVE (NEGATIVE); GLUCOSE, URINE (UA) NEGATIVE (NEGATIVE); KETONES,URINE NEGATIVE (NEGATIVE); LEUKOCYTE ESTERASE ,URINE NEGATIVE (NEGATIVE); NITRITE,URINE NEGATIVE (NEGATIVE); PROTEIN,URINE 1+ (NEGATIVE); SQUAMOUS EPITHELIAL CELL,UR 0-2 /HPF; WBC,URINE RARE /HPF
[2022-11-23] MEDS ORDERED: VANCOMYCIN INJECTION 750 MG in NS (IVPB) 100 ML 100 ML IV ONE (11:45)
[2022-11-23] MEDS ORDERED: CEFEPIME INJECTION 2,000 MG in NS (IVPB) 50 ML 50 ML IV ONE (11:45)
[2022-11-23] MEDS ORDERED: VANCOMYCIN 1250MG/250ML PREMIX 250 ML IV NR (12:00)
[2022-11-23] MEDS ORDERED: VANCOMYCIN INJECTION 500 MG in NS (IVPB) 100 ML 100 ML IV ONE (12:45)
[2022-11-23] MEDS ORDERED: MELATONIN 3 MG TABLET PO PRN (15:15)
[2022-11-23] MEDS ORDERED: BISACODYL 10 MG SUPPOSITORY PR PRN (15:15)
[2022-11-23] MEDS ORDERED: VANCOMYCIN INJECTION 0.1 MG in NS (IVPB) 250 ML 250 ML IV SCH (15:15)
[2022-11-23] MEDS ORDERED: ANTACID SUSPENSION 30 ML UDC PO PRN (15:15)
[2022-11-23] MEDS ORDERED: LACTULOSE SYRUP 10GM/15ML 30ML UDC PO PRN (15:15)
[2022-11-23] MEDS ORDERED: ONDANSETRON 4 MG ORAL DISSOLVE TABLET PO PRN (15:15)
[2022-11-23] MEDS ORDERED: ONDANSETRON INJECTION 4 MG/2 ML (SDV) IV PRN (15:15)
[2022-11-23] MEDS ORDERED: ENOXAPARIN 40 MG/0.4 ML SYRINGE SC SCH (15:15)
[2022-11-23] MEDS ORDERED: CEFEPIME INJECTION 1,000 MG in NS (IVPB) 50 ML 50 ML IV SCH (15:15)
[2022-11-23] MEDS ORDERED: MILK OF MAGNESIA 400 MG/5 ML 30 ML UDC PO PRN (15:15)
[2022-11-23] MEDS ORDERED: ACETAMINOPHEN 325 MG TABLET PO PRN (15:15)
[2022-11-23] MEDS ORDERED: CALCIUM CARBONATE 500 MG CHEW TABLET PO PRN (15:15)
[2022-11-23] MEDS ORDERED: NS IV 500 ML 500 ML IV PRN (15:15)
--- NOTE | 2022-11-23 15:27 | Tele-ICU Progress Note ---
Subjective Date Seen by a Provider: Nov 23, 2022 Time Seen by a Provider: 15:22 Subjective/Events-last exam Tele-ICU Physician , Progress Note ) Service provided via interactive audio and video telecommunications E-CARE s yste to a patient admitted to ICU bed in [facility]. Patient is seen today due to persistent need of ICU care Available chart/ vitals / labs / Images reviewed Video assessment done using teleICU camera, rest of exam as per RN he is a 77 yr old male with past medical hx of lung cancer receiving armando- radiation. This am received radiation treatment and after he developed chills and rigors. Came to ED and found to have fever. cxr showed chr. infiltrates and an infusa port. UA is relatively unremarkable. Impression. 1. possible sepsis due to pneumonia vs port infection. 2. Lung cancer 3. Dehydration Plan. 1. Hydrate patient 2. Broad spectrum antibiotics. 3. monitor cultures Coordination of care with the bedside physicians. I am remotely monitoring this patient from Tele icu station in [place]. I am unable to do the bedside exam, and history/physical and pertinent information is taken from other notes in the computer and bedside staff. Certain portions of this document may have been dictated utilizing voice recognition technology such as Keywee. Inherent to this technology, typographical and grammatical errors may exist. As much as I am diligent to identify and correct to these mistakes, some errors may remain in the document. Critical care time devoted to this patient today is approximately is-20 minutes- Review of Systems General: Chills, Fatigue Sepsis Event Evaluation Height, Weight, BMI Height: '" Weight: lbs. oz. kg; 18.00 BMI Method: Focused Exam Lactate Level 11/23/22 09:22: Lactic Acid Level 2.00 Time of Focused Exam: 14:10 Exam Exam Patient acknowledged, consented, and participated in this virtual visit which was conducted using real time audio/video Vital Signs Date Time Temp Pulse Resp B/P (MAP) Pulse Ox O2 Delivery O2 Flow Rate FiO2 11/23/22 15:18 36.5 18 124/84 (97) 95 Room Air 11/23/22 09:22 38.1 111 20 168/77 (107) 94 Room Air Height & Weight Height: '" Weight: lbs. oz. kg; 18.00 BMI Method: General Appearance: Chronically ill, Cachetic Respiratory: Lungs Clear, No Respiratory Distress Cardiovascular: Regular Rate, Rhythm, No Edema Capillary Refill: Less Than 3 Seconds Results Lab Laboratory Tests 11/23/22 09:22 Assessment/Plan Assessment/Plan as above Critical Care: Critically Ill Patient Time spent with patient (mins): 20 CRISS PAULA MD Nov 23, 2022 15:27
[2022-11-23 15:49] VITALS: BP 124/84
[2022-11-23] MEDS ORDERED: RT-ALBUTEROL SULF 2.5 MG/3 ML PRE-MIX VIAL INH PRN (16:00)
[2022-11-23] MEDS: LACTATED RINGERS 1,000 ML 1,000 ML IV SCH (16:36)
[2022-11-23] MEDS: ENOXAPARIN 30 MG/0.3 ML SYRINGE SC SCH (16:46)
[2022-11-23] MEDS: CEFEPIME INJECTION 1,000 MG in NS (IVPB) 50 ML 50 ML IV SCH (20:02)
[2022-11-23] MEDS: DOCUSATE SODIUM 100 MG CAPSULE PO SCH (20:32)
[2022-11-23] MEDS: SENNOSIDES 8.6 MG TABLET PO SCH (20:33)
[2022-11-24] MEDS: LACTATED RINGERS 1,000 ML 1,000 ML IV SCH ×3 (00:06→12:54)
[2022-11-24] MEDS: VANCOMYCIN 1 GM/NS 250 ML IVPB IV SCH ×4 (00:07→12:54)
[2022-11-24] MEDS: CEFEPIME INJECTION 1,000 MG in NS (IVPB) 50 ML 50 ML IV SCH ×4 (01:18→20:07)
[2022-11-24 03:56] LABS: BASOPHILS % (AUTO) 0 % (0-10); EOSINOPHILS % (AUTO) 0 % (0-10); HEMATOCRIT 30 % (40-54); LYMPHOCYTES # (AUTO) 0.1 10^3/uL (1.0-4.0); LYMPHOCYTES % (AUTO) 3 % (12-44); MEAN CORPUSCULAR HEMOGLOBIN 28 pg (25-34); MEAN CORPUSCULAR HGB CONC 34 g/dL (32-36); MEAN CORPUSCULAR VOLUME 82 fL (80-99); MEAN PLATELET VOLUME 9.2 fL (9.0-12.2); MONOCYTES % (AUTO) 2 % (0-12); NEUTROPHILS # (AUTO) 2.6 10^3/uL (1.8-7.8); NEUTROPHILS % (AUTO) 94 % (42-75); PLATELET COUNT 233 10^3/uL (130-400); WHITE BLOOD COUNT 2.7 10^3/uL (4.3-11.0)
[2022-11-24 04:17] LABS: ALBUMIN 2.4 GM/DL (3.2-4.5); POTASSIUM 4.1 MMOL/L (3.6-5.0)
[2022-11-24 04:18] LABS: CALCIUM 8.1 MG/DL (8.5-10.1)
[2022-11-24 04:19] LABS: TOTAL PROTEIN 4.9 GM/DL (6.4-8.2)
[2022-11-24 04:21] LABS: BILIRUBIN,TOTAL 0.6 MG/DL (0.1-1.0)
[2022-11-24 04:22] LABS: PHOSPHORUS 2.9 MG/DL (2.3-4.7)
[2022-11-24 04:23] LABS: CREATININE SERUM 0.53 MG/DL (0.60-1.30)
[2022-11-24 04:26] LABS: MAGNESIUM 1.5 MG/DL (1.6-2.4)
[2022-11-24] MEDS: POTASSIUM CL 10MEQ/50ML IVPB 50 ML IV SCH (05:27)
[2022-11-24] MEDS: MAGNESIUM 1 GM/100 ML IVPB 100 ML IV SCH ×3 (05:27→09:57)
[2022-11-24] MEDS: POTASSIUM CHLORIDE 20 MEQ TABLET PO SCH (05:28)
[2022-11-24] MEDS: DOCUSATE SODIUM 100 MG CAPSULE PO SCH ×2 (09:00→20:08)
[2022-11-24] MEDS: SENNOSIDES 8.6 MG TABLET PO SCH ×2 (09:00→20:08)
[2022-11-24] MEDS ORDERED: ACET-2267 PO (10:20)
--- NOTE | 2022-11-24 15:46 | History & Physical-Hospitalist ---
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 He had been in his normal state of health prior. He has a chronic cough which he thinks may be worse than usual. He denies sputum production. He denies shortness of breath. He denies dysuria. He reports urinary frequency. He denies abdominal pain. He is getting weekly chemotherapy and last received this on Monday. Source: patient Exam Limitations: no limitations Date Seen 11/24/22 Time Seen by a Provider: 10:30 Attending Physician Elisabeth Venegas PCP Admitting Physician: Maricel Hayes MD Attending Physician: Maricel Hayes MD Referring Physician Date of Admission Nov 23, 2022 at 15:15 Home Medications & Allergies Home Medications Reviewed patient Home Medication Reconciliation performed by pharmacy medication reconciliations refinery technician and/or nursing. Patients Allergies have been reviewed. Allergies Allergies Coded Allergies No Known Drug Allergies (Unverified10/10/22) Past Hvfaivu-Pfexkj-Xysqps Hx Patient Social History Tobacco Use?: No Smoking Status: Former Smoker Smokeless Tobacco Frequency: Never a User Use of E-Cig and/or Vaping dev: No Substance use?: No Alcohol Use?: No Pt feels they are or have been: No Immunizations Up To Date Tetanus Booster (TDap): Unknown Seasonal Allergies Seasonal Allergies: No Current Status Advance Directives: No Communicates: Verbally Primary Language: Macedonian Preferred Spoken Language: Macedonian Is interpretation needed?: No Past Medical History Surgeries: Orthopedic Lung Sleep Difficulties Blood Disorders: No Family Medical History No Pertinent Family Hx Review of Systems Constitutional: chills, fever Respiratory: cough Cardiovascular: no symptoms reported Gastrointestinal: no symptoms reported Physical Exam Physical Exam Vital Signs Vital Signs - First Documented 11/23/22 11/23/22 11/23/22 09:22 15:49 20:00 Temp 38.1 Pulse 111 Resp 20 B/P (MAP) 168/77 (107) Pulse Ox 94 O2 Delivery Room Air O2 Flow Rate 2.00 FiO2 21 Capillary Refill : Less Than 3 Seconds Height, Weight, BMI Height: '" Weight: lbs. oz. kg; 18.94 BMI Method: General Appearance: No Apparent Distress, Thin HEENT: PERRL/EOMI, Pharynx Normal Neck: Normal Inspection, Supple Respiratory: Chest Non Tender, No Respiratory Distress, Decreased Breath Sounds, Other (right chest port) Cardiovascular: Regular Rate, Rhythm, No Murmur Gastrointestinal: Normal Bowel Sounds, Non Tender, Soft Extremity: Normal Inspection, No Pedal Edema Neurologic/Psychiatric: Alert, Oriented x3, Normal Mood/Affect Skin: Normal Color, Warm/Dry Results Results/Procedures Labs Laboratory Tests 11/23/22 09:22 11/24/22 03:49 Patient resulted labs reviewed. Imaging: Reviewed Imaging Films, Reviewed Imaging Report Assessment/Plan Admission Diagnosis Sepsis due to UTI Admission Status: Inpatient Order (span 2 midnights) Reason for Inpatient Admission: IV antibiotics Assessment and Plan Sepsis Klebsiella UTI Possible PNA Lung cancer Neutropenia Septic on arrival with fever and tachycardia UA did not indicate UTI, but urine culture with >[id number] Klebsiella/Enterobacter XR with unchanged bilateral upper lobe infiltrates Blood cultures with no growth Started on Vanc and Cefepime Stop Vancomycin, no evidence of MRSA infection WBC dropping, continue to monitor, likely chemotherapy related Transfer to medical floor DVT prophylaxis: Lovenox Diagnosis/Problems Diagnosis/Problems (1) Sepsis Status: Acute Qualifiers: Sepsis type: sepsis due to unspecified organism Sepsis acute organ dysfunction status: without acute organ dysfunction Qualified Codes: A41.9 - Sepsis, unspecified organism (2) UTI (urinary tract infection) Status: Acute (3) Neutropenia Status: Acute Qualifiers: Neutropenia type: secondary to cancer chemotherapy Qualified Codes: D70.1 - Agranulocytosis secondary to cancer chemotherapy; T45.1X5A - Adverse effect of antineoplastic and immunosuppressive drugs, initial encounter (4) Squamous cell carcinoma of left lung Status: Chronic MARICEL HAYES MD Nov 24, 2022 15:46
[2022-11-24] MEDS ORDERED: SODIUM CHLORIDE 1 GM TABLET PO NR (16:15)
[2022-11-24 16:26] VITALS: BP 124/61
[2022-11-24] MEDS: ENOXAPARIN 30 MG/0.3 ML SYRINGE SC SCH (17:05)
[2022-11-24 20:36] VITALS: BP 117/67
[2022-11-24 23:32] VITALS: BP 103/55
[2022-11-25] MEDS: LACTATED RINGERS 1,000 ML 1,000 ML IV SCH ×2 (00:47→04:05)
[2022-11-25 00:51] VITALS: BP 104/58
[2022-11-25] MEDS: CEFEPIME INJECTION 1,000 MG in NS (IVPB) 50 ML 50 ML IV SCH ×2 (02:04→07:38)
[2022-11-25 03:59] VITALS: BP 111/54
[2022-11-25 04:18] LABS: BASOPHILS % (AUTO) 0 % (0-10); EOSINOPHILS % (AUTO) 0 % (0-10); HEMATOCRIT 29 % (40-54); HEMOGLOBIN 9.9 g/dL (13.3-17.7); LYMPHOCYTES # (AUTO) 0.1 10^3/uL (1.0-4.0); LYMPHOCYTES % (AUTO) 2 % (12-44); MEAN CORPUSCULAR HEMOGLOBIN 27 pg (25-34); MEAN CORPUSCULAR HGB CONC 34 g/dL (32-36); MEAN CORPUSCULAR VOLUME 81 fL (80-99); MEAN PLATELET VOLUME 9.2 fL (9.0-12.2); MONOCYTES # (AUTO) 0.1 10^3/uL (0.0-1.0); MONOCYTES % (AUTO) 2 % (0-12); NEUTROPHILS # (AUTO) 2.8 10^3/uL (1.8-7.8); NEUTROPHILS % (AUTO) 95 % (42-75); PLATELET COUNT 232 10^3/uL (130-400)
[2022-11-25 04:27] LABS: POTASSIUM 3.4 MMOL/L (3.6-5.0)
[2022-11-25 04:28] LABS: CALCIUM 8.2 MG/DL (8.5-10.1)
[2022-11-25 04:32] LABS: CREATININE SERUM 0.49 MG/DL (0.60-1.30)
[2022-11-25 04:35] LABS: MAGNESIUM 1.7 MG/DL (1.6-2.4)
[2022-11-25] MEDS: MAGNESIUM 1 GM/100 ML IVPB 100 ML IV SCH ×5 (05:05→08:31)
[2022-11-25] MEDS: POTASSIUM CL 10MEQ/50ML IVPB 50 ML IV SCH (05:25)
[2022-11-25] MEDS: POTASSIUM CHLORIDE 20 MEQ TABLET PO SCH (05:26)
[2022-11-25 07:06] VITALS: BP 115/55
[2022-11-25] MEDS: SENNOSIDES 8.6 MG TABLET PO SCH (07:37)
[2022-11-25] MEDS: DOCUSATE SODIUM 100 MG CAPSULE PO SCH (07:38)
[2022-11-25] MEDS ORDERED: POTASSIUM CHLORIDE 20 MEQ TABLET PO ONE (09:00)
[2022-11-25 11:01] VITALS: BP 143/63
[2022-11-25] MEDS ORDERED: SULF1TAB38 PO (11:52)
--- NOTE | 2022-11-25 11:54 | D/C HH Face to Face Order ---
D/C Face to Face Orders Instructions for Patient Via [facility] [place] [facility], Patient Instructions/FollowUp: see instructions Physician to follow Patient: Venegas Discharge Diet for Home: No Restrictions Patient Data-Allergies,Ht & Wt Patient Allergies: Coded Allergies: No Known Drug Allergies (Unverified , 10/10/22) Home Health Need/Face to Face Date of Face to Face: Nov 25, 2022 Clinical Findings: Generalized weakness and fatigue, Instability, Muscle weakness, Unsteady gait I have seen Pt [id number]-pv-[id number]: Yes Discharged To: Home Diagnosis/Conditions: UTI Lung cancer Neutropenia Problems/Diagnosis/Condition: (1) Sepsis (2) UTI (urinary tract infection) (3) Lung cancer (4) Immunocompromised (5) Neutropenia Patient is Homebound due to: Cecille fall risk due to instabilty, Muscle weakness Homebound Status Due to the above stated illness, injury or surgical procedure (medical condition or diagnosis) and associated clinical findings, the patient is homebound because of his/her inability to leave home except with aid of a supportive device and/or person AND leaving the home requires a considerable and taxing effort or is medically contraindicated. Pt req the following assistanc: Aid of another person, [facility] Home Health Nursing Orders Home Health Services Order: Nursing Services, Zoo Keeper-Evaluate & Treat, Physical Therapy-Evaluate & Treat Home Health Infusion Therapy Line Start Date: Nov 23, 2022 Therapy Orders Therapy Orders: OT (must have SN or PT order), Physical Therapy Therapy Specific Orders: Eval assistive deivces, Teach enviro modifications/safety, Gait training, Increase strength/endurance Certify Stmt I certify that this patient is under my care and that I, a nurse practitioner or a physician; a program assistant working with me, had a face to face encounter that - meets the physician face to face encounter requirements with this patient as dated. MARICEL HAYES MD Nov 25, 2022 11:54
--- NOTE | 2022-11-25 13:15 | Occ Therapy Progress Note ---
Therapy Progress Note Patient is independent w/ all dressing ADLS and mobility per PT, Discontinue OT order LENNY HAMILTON OT Nov 25, 2022 13:15
--- NOTE | 2022-11-25 13:21 | Physical Therapy Evaluation ---
PT Evaluation-General Medical Diagnosis Admission Date Nov 23, 2022 at 15:15 Medical Diagnosis: fever Onset Date: Nov 23, 2022 Therapy Diagnosis Therapy Diagnosis: debility Precautions Precautions/Isolations: Standard Precautions Referral Physician: Prakash Reason for Referral: Evaluation/Treatment Medical History Additional Medical History lung cancer/chemo Current History developed chills and fever at cancer center Reviewed History: Yes Social History Home: Apartment Current Living Status: Alone Entry Into Home: Level Entry Prior Prior Level of Function SCALE: Activities may be completed with or without assistive devices. 3-Vzmksktbyf-orfmxte completes the activity by him/herself with no assistance from a helper. 5-Set-up or Clean-up Assistance-helper sets up or cleans up; patient completes activity. [place] assists only prior to or following the activity. 4-Supervision or Touching Assistance-helper provides verbal cues and/or touching/steadying and/or contact guard assistance as patient completes activity. Assistance may be provided throughout the activity or intermittently. 3-Partial/Moderate Assistance-helper does LESS THAN HALF the effort. [place] lifts, holds or supports trunk or limbs, but provides less than half the effort. 2-Substantial/Maximal Assistance-helper does MORE THAN HALF the effort. [place] lifts or holds trunk or limbs and provides more than half the effort. 9-Pwconfjpc-fpvpct does ALL the effort. Patient does none of the effort to complete the activity. Or, the assistance of 2 or more helpers is required for the patient to complete the activity. If activity was not attempted, code reason: 7-Patient Refused. 9-Not Applicable-not attempted and the patient did not perform the activity before the current illness, exacerbation or injury. 10-Not Attempted due to Environmental Limitations-(lack of equipment, weather restraints, etc.). 88-Not Attempted due to Medical Conditions or Safety Concerns. Bed Mobility: 6 Transfers (B,C,W/C): 6 Gait: 6 Indoor Mobility (Ambulation): Independent Prior Devices Use: Other-see list below Prior Device Use: cane PT Evaluation-Current Subjective Patient agrees to PT. Patient dons all clothing independently without difficulty Objective Patient Orientation: Normal For Age ROM/Strength ROM Lower Extremities bilateral LE WFL Strength Lower Extremities 3+/5 grossly bilateral LE all planes Integumentary/Posture Bowel Incontinence: No Bladder Incontinence: No Posture WFL Neuromuscular (Tone, Coordination, Reflexes) grossly intact Sensory Vision: Wears Glasses Hearing: Functional Transfers Lying to Sitting/Side of Bed(Q: 6 Sit to Stand (QC): 6 Chair/Iui-oz-Jeevo Xfer(QC): 6 Gait Mode of Locomotion: Walk Anticipated Mode of Locomotion: Walk Walk 10 feet (QC): 55 Walk 50 ft with 2 Turns(QC): 5 Walk 150 ft (QC): 5 Distance: 50' with cane/150' with FWW Gait Assistive Device: FWW Comments/Gait Description initially attempted to ambulate with single point cane, however is too unsteady. FWW issued with much improved gait and balance. Balance Sitting Static: Normal Sitting Dynamic: Normal Standing Static: Fair Standing Dynamic: Fair Assessment/Needs Patient would benefit from FWW for home use due to gait instability with single point cane. Patient's gait much improved with FWW. Patient will dismiss to home on this date, per report, and with FWW. Rehab Potential: Fair PT Plan Treatment/Plan Treatment Plan: Discontinue PT Treatment Duration: Nov 25, 2022 Frequency: 1 time per week Estimated Hrs Per Day: .25 hour per day Patient and/or Family Agrees t: Yes Time Time In: 1215 Time Out: 1230 DATE: Nov 25, 2022 Total Billed Treatment Time: 15 Total Billed Treatment 1 visit [facility] 15 min BRYNN SELLERS PT Nov 25, 2022 13:21
--- NOTE | 2022-11-25 19:05 | Discharge Summary ---
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 His blood cultures were negative. His chest xray was unchanged from prior. He was started on IV antibiotics. His UA was not indicative of UTI, but his urine culture grew >100,000 Klebsiella oxytoca. He had been having urinary frequency. He will complete a course of Bactrim at home. He was debilitated and worked with PT and OT. He was set up with home health. He was discharged home in stable condition. Labs and Pending Lab Test: Laboratory Tests 11/25/22 04:00: White Blood Count 3.0L, Red Blood Count 3.63L, Hemoglobin 9.9L, Hematocrit 29L, Mean Corpuscular Volume 81, Mean Corpuscular Hemoglobin 27, Mean Corpuscular Hemoglobin Concent 34, Red Cell Distribution Width 14.6H, Platelet Count 232, Mean Platelet Volume 9.2, Immature Granulocyte % (Auto) 1, Neutrophils (%) (Auto) 95H, Lymphocytes (%) (Auto) 2L, Monocytes (%) (Auto) 2, Eosinophils (%) (Auto) 0, Basophils (%) (Auto) 0, Neutrophils # (Auto) 2.8, Lymphocytes # (Auto) 0.1L, Monocytes # (Auto) 0.1, Eosinophils # (Auto) 0.0, Basophils # (Auto) 0.0, Immature Granulocyte # (Auto) 0.0, Sodium Level 132L, Potassium Level 3.4L, Chloride Level 101, Carbon Dioxide Level 21, Anion Gap 10, Blood Urea Nitrogen 8, Creatinine 0.49L, Estimat Glomerular Filtration Rate 106, BUN/Creatinine Ratio 16, Glucose Level 86, Calcium Level 8.2L, Magnesium Level 1.7 Microbiology 11/23/22 Urine Culture - Final, Complete Klebsiella oxytoca Mixed Bacterial Radha See Comments 11/23/22 Blood Culture - Preliminary, Resulted Home Meds Active Bactrim Ds Tablet (Sulfamethoxazole/Trimethoprim) 1 Each Tablet 1 Each PO BID 5 Days Reported Tylenol Extra Strength (Acetaminophen) 500 Mg Tablet 500-1,000 Mg PO Q6H PRN Assessment/Pt Instructions see instructions Discharge Planning: >30 minutes discharge planning Discharge Instructions Discharge Diet: No Restrictions Activity as Tolerated: Yes Discharge Physical Examination Vital Signs Vital Signs Date Time Temp Pulse Resp B/P (MAP) Pulse Ox O2 Delivery O2 Flow Rate FiO2 11/25/22 14:10 11/25/22 11:01 36.5 94 14 93 Room Air 11/25/22 08:58 0.00 11/23/22 15:49 21 General Appearance: No Apparent Distress, Thin Respiratory: No Respiratory Distress, Decreased Breath Sounds Cardiovascular: Regular Rate, Rhythm, No Murmur Gastrointestinal: Normal Bowel Sounds, Soft Extremity: Normal Inspection, No Pedal Edema Skin: Normal Color, Warm/Dry Neurologic/Psychiatric: Alert, Normal Mood/Affect Allergies: Coded Allergies: No Known Drug Allergies (Unverified , 10/10/22) Copy Copies To 1: AISHWARYA SU MD Discharge Summary Date of Admission Nov 23, 2022 at 15:15 Date of Discharge Nov 25, 2022 at 14:11 Discharge Date: Nov 25, 2022 Discharge Time: 14:11 Admission Diagnosis Sepsis due to UTI Discharge Diagnosis Sepsis Klebsiella UTI Lung cancer Neutropenia (1) Sepsis Status: Acute Qualifiers: Qualified Codes: A41.9 - Sepsis, unspecified organism (2) UTI (urinary tract infection) Status: Acute (3) Neutropenia Status: Acute Qualifiers: Qualified Codes: D70.1 - Agranulocytosis secondary to cancer chemotherapy; T45.1X5A - Adverse effect of antineoplastic and immunosuppressive drugs, initial encounter (4) 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
== END 2022-11-25 14:11 | disposition home health service (06) | DRG 872 ==
LOC: EDUNIT# 08:43 → ER 08:45 → ICU 15:00 → OBSVTOIN 15:15 → 4TH 11-24 13:29
PROVIDERS: ADMIT Internal Medicine; ATTEND Internal Medicine
DX: A41.9 Sepsis, unspecified organism (principal); N39.0 Urinary tract infection, site not specified; C34.90 Malignant neoplasm of unspecified part of unspecified bronchus or lung; B96.1 Klebsiella pneumoniae [K. pneumoniae] as the cause of diseases classified elsewhere; D70.1 Agranulocytosis secondary to cancer chemotherapy; T45.1X5A Adverse effect of antineoplastic and immunosuppressive drugs, initial encounter; Z87.891 Personal history of nicotine dependence; Z92.3 Personal history of irradiation; Z92.21 Personal history of antineoplastic chemotherapy; Z20.822 Contact with and (suspected) exposure to COVID-19; I95.9 Hypotension, unspecified; E86.0 Dehydration
CPT/HCPCS: 36415; 36556; 71045; 77336; 77386; 80048; 80053; 81000; 83605; 83735; 84100; 85007; 85025; 85027; 85610; 85730; 86141; 87040; 87077; 87088; 87186; 87636; 94760

== ENCOUNTER 2022-11-28 09:19 | Outpatient (RCR) | payer MEDICARE, OTHER ==
[2022-11-21 09:53] VITALS: BP 103/63
[~2022-11-28 09:19] MED LIST changes: +ACET-2267 PO; -HEParin (CENTRAL IV FLUSH) 500 UNIT/5 ML SYR IV PRN; +SULF1TAB38 PO
== END 2022-11-29 08:35 | disposition still patient (30) ==
LOC: ONC 09:19
PROVIDERS: ATTEND Internal Medicine Hematology & Oncology
DX: C34.90 Malignant neoplasm of unspecified part of unspecified bronchus or lung (principal)
CPT/HCPCS: 99214

== ENCOUNTER 2022-11-29 08:37 | Outpatient (RCR) | payer MEDICARE, OTHER ==
[2022-11-21 09:53] VITALS: BP 103/63
[2022-11-29 09:15] LABS: BASOPHILS % (AUTO) 0 % (0-10); EOSINOPHILS % (AUTO) 0 % (0-10); HEMATOCRIT 34 % (40-54); LYMPHOCYTES # (AUTO) 0.1 10^3/uL (1.0-4.0); LYMPHOCYTES % (AUTO) 2 % (12-44); MEAN CORPUSCULAR HEMOGLOBIN 28 pg (25-34); MEAN CORPUSCULAR HGB CONC 33 g/dL (32-36); MEAN CORPUSCULAR VOLUME 84 fL (80-99); MEAN PLATELET VOLUME 9.3 fL (9.0-12.2); MONOCYTES # (AUTO) 0.2 10^3/uL (0.0-1.0); MONOCYTES % (AUTO) 4 % (0-12); NEUTROPHILS # (AUTO) 3.9 10^3/uL (1.8-7.8); NEUTROPHILS % (AUTO) 93 % (42-75); PLATELET COUNT 290 10^3/uL (130-400); WHITE BLOOD COUNT 4.2 10^3/uL (4.3-11.0)
[2022-11-29 09:33] LABS: ALBUMIN 2.9 GM/DL (3.2-4.5); BILIRUBIN,TOTAL 0.5 MG/DL (0.1-1.0); CALCIUM 8.9 MG/DL (8.5-10.1); CREATININE SERUM 0.58 MG/DL (0.60-1.30); POTASSIUM 4.8 MMOL/L (3.6-5.0); TOTAL PROTEIN 6.1 GM/DL (6.4-8.2)
[2022-12-05] MEDS ORDERED: ALPR0.254 PO (10:19)
[2022-12-12] MEDS ORDERED: NF-NACL1GT PO (13:46)
[2022-12-12] MEDS ORDERED: DRON400T6 PO (13:46)
[2022-12-12] MEDS ORDERED: APIX5TAB PO (13:46)
[2022-12-12] MEDS ORDERED: MIRT-47 PO (13:46)
[2022-12-12] MEDS ORDERED: METO50TA15 PO (13:46)
== END 2022-12-13 | disposition home or self-care (01) ==
LOC: ONC 08:37
PROVIDERS: ATTEND Internal Medicine Hematology & Oncology
DX: C34.90 Malignant neoplasm of unspecified part of unspecified bronchus or lung (principal)
CPT/HCPCS: 80053; 85025; G0463; 99214

== ENCOUNTER 2022-12-02 11:50 | Inpatient (IN) | payer MEDICARE, OTHER ==
[~2022-12-02] VITALS: Ht 180.3 cm; Wt 56.0 kg
[2022-12-02] MEDS ORDERED: NS IV 1000 ML 1,000 ML IV SCH (12:15)
[2022-12-02] MEDS ORDERED: CEFEPIME INJECTION 1,000 MG in NS (IVPB) 50 ML 50 ML IV ONE (12:15)
--- NOTE | 2022-12-02 12:17 | ED Respiratory ---
General Chief Complaint: Respiratory Problems Stated Complaint: CANCER PT | SOB | WEAKNESS Nursing Triage Note: PT TO RM 9 BY WC WITH COMPLAINT OF SOB, AMS, AND WEAKNESS. SISTER STATES THAT PT HAS BEEN FALLING ALOT AT HOME AND ACTS LIKE HE IS IN A FOG. PT IS COMPLAINING OF RIGHT RIB AND TAILBONE PAIN. Source: patient Exam Limitations: no limitations ([place] DUMONT) History of Present Illness Date Seen by Provider: Dec 02, 2022 Time Seen by Provider: 12:15 Initial Comments Patient is a 77-year-old male with a history of lung cancer who presents the ED for weakness cough shortness of breath. Patient states he was admitted here around 5 days ago. Was recently discharged. Was found to have a fever of unknown origin concern for pneumonia and UTI positive for Klebsiella. Recently finished antibiotics. States since then he has had increasing shortness of breath specially with ambulation. Denies of any specific chest pain. Does report a productive cough. Has not had any chemoradiation this week. Has received at least 4 rounds of chemo and radiation. Patient has not tried any other types of medication at this time. Denies of any known fever. Denies vomiting, diarrhea, pain with urination, frequent urination, headache, dizziness, visual changes. Patient follows Dr. Jenkins ([place] DUMONT) Allergies and Home Medications Allergies Coded Allergies: No Known Drug Allergies (Unverified , 10/10/22) Patient Home Medication List Home Medication List Reviewed: Yes ([place] PARRISH MD) Acetaminophen (Tylenol Extra Strength) 500 Mg Tablet, 500-1,000 MG PO Q6H PRN for PAIN-MILD (1-4), (Reported) Entered as Reported by: KINGSLEY EVANS on 11/24/22 1020 Sulfamethoxazole/Trimethoprim (Bactrim Ds Tablet) 1 Each Tablet, 1 EACH PO BID Prescribed by: MARICEL HAYES on 11/25/22 1152 Review of Systems Review of Systems Constitutional: No chills, No diaphoresis, No fever; malaise, weakness EENTM: No ear pain, No blurred vision, No mouth pain, No mouth swelling, No throat pain, No throat swelling Respiratory: cough, dyspnea on exertion Cardiovascular: No chest pain Gastrointestinal: No abdominal pain, No diarrhea, No nausea, No vomiting Genitourinary: No decreased output, No discharge Musculoskeletal: No back pain, No joint pain Skin: No change in color, No change in hair/nails ([place] DUMONT) All Other Systems Reviewed Negative Unless Noted: Yes ([place] DUMONT) Past Gpldjld-Jwsyfu-Hksiqe Hx Patient Social History Tobacco Use?: No Use of E-Cig and/or Vaping dev: No Substance use?: No Alcohol Use?: No Pt feels they are or have been: No ([place] DUMONT) Seasonal Allergies Seasonal Allergies: No ([place] DUMONT) Past Medical History Surgeries: Yes Orthopedic Respiratory: No Cardiac: No Neurological: No Genitourinary: No Gastrointestinal: No Musculoskeletal: Yes (HX OF BONE SPUR IN RIGHT FOOT) Endocrine: No HEENT: No Cancer: Yes (CURRENT LUNG) Lung Psychosocial: Yes Sleep Difficulties Integumentary: No Blood Disorders: No ([place] DUMONT) Family Medical History No Pertinent Family Hx ([place] DUMONT) Physical Exam Vital Signs - First Documented 12/02/22 12:03 Temp 36.2 Pulse 116 Resp 20 B/P (MAP) 145/72 (96) Pulse Ox 92 O2 Delivery Room Air ([place] PARRISH MD) Capillary Refill : Less Than 3 Seconds ([place] DUMONT) Height: '" Weight: lbs. oz. 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 nml as tested, no motor/sensory deficits, alert, normal mood/affect Skin: normal color, warm/dry ([place] DUMONT) Focused Exam Lactate Level 12/02/22 12:11: Lactic Acid Level 1.58 ([place] PARRISH MD) Lactic Acid Level Laboratory Tests Test 12/02/22 12:11 Lactic Acid Level 1.58 MMOL/L (0.50-2.00) ([place] PARRISH MD) Progress/Results/Core Measures Suspected Sepsis SIRS Temperature: Pulse: 116 Respiratory Rate: 20 Laboratory Tests 12/02/22 12:11: White Blood Count 3.5L Blood Pressure 145 /72 Mean: 96 12/02/22 12:11: Lactic Acid Level 1.58 Laboratory Tests 12/02/22 12:11: Creatinine 0.62, INR Comment 1.1, Platelet Count 300, Total Bilirubin 0.7 ([place] DUMONT) Results/Orders Lab Results Laboratory Tests Test 12/02/22 12:11 Range/Units White Blood Count 3.5 L 4.3-11.0 10^3/uL Red Blood Count 4.02 L 4.30-5.52 10^6/uL Hemoglobin 11.0 L 13.3-17.7 g/dL Hematocrit 33 L 40-54 % Mean Corpuscular Volume 82 80-99 fL Mean Corpuscular Hemoglobin 27 25-34 pg Mean Corpuscular Hemoglobin Concent 33 32-36 g/dL Red Cell Distribution Width 15.7 H 10.0-14.5 % Platelet Count 300 130-400 10^3/uL Mean Platelet Volume 9.0 9.0-12.2 fL Immature Granulocyte % (Auto) 1 % Neutrophils (%) (Auto) 93 H 42-75 % Lymphocytes (%) (Auto) 2 L 12-44 % Monocytes (%) (Auto) 4 0-12 % Eosinophils (%) (Auto) 0 0-10 % Basophils (%) (Auto) 1 0-10 % Neutrophils # (Auto) 3.3 1.8-7.8 10^3/uL Lymphocytes # (Auto) 0.1 L 1.0-4.0 10^3/uL Monocytes # (Auto) 0.1 0.0-1.0 10^3/uL Eosinophils # (Auto) 0.0 0.0-0.3 10^3/uL Basophils # (Auto) 0.0 0.0-0.1 10^3/uL Immature Granulocyte # (Auto) 0.0 0.0-0.1 10^3/uL Neutrophils % (Manual) 93 % Lymphocytes % (Manual) 2 % Monocytes % (Manual) 1 % Eosinophils % (Manual) 0 % Basophils % (Manual) 0 % Band Neutrophils 4 % Anisocytosis SLIGHT Prothrombin Time 14.8 H 12.2-14.7 SEC INR Comment 1.1 0.8-1.4 Activated Partial Thromboplast Time 45 H 24-35 SEC Sodium Level 127 L 135-145 MMOL/L Potassium Level 4.3 3.6-5.0 MMOL/L Chloride Level 96 L 98-107 MMOL/L Carbon Dioxide Level 18 L 21-32 MMOL/L Anion Gap 13 5-14 MMOL/L Blood Urea Nitrogen 21 H 7-18 MG/DL Creatinine 0.62 0.60-1.30 MG/DL Estimat Glomerular Filtration Rate 98 BUN/Creatinine Ratio 34 Glucose Level 106 H 70-105 MG/DL Lactic Acid Level 1.58 0.50-2.00 MMOL/L Calcium Level 9.1 8.5-10.1 MG/DL Corrected Calcium 10.0 8.5-10.1 MG/DL Total Bilirubin 0.7 0.1-1.0 MG/DL Aspartate Amino Transf (AST/SGOT) 49 H 5-34 U/L Alanine Aminotransferase (ALT/SGPT) 34 0-55 U/L Alkaline Phosphatase 67 40-136 U/L Troponin I < 0.028 <0.028 NG/ML B-Type Natriuretic Peptide 98.7 <100.0 PG/ML Total Protein 6.2 L 6.4-8.2 GM/DL Albumin 2.9 L 3.2-4.5 GM/DL Influenza Type A (RT-PCR) Not Detected Not Detecte Influenza Type B (RT-PCR) Not Detected Not Detecte SARS-CoV-2 RNA (RT-PCR) Not Detected Not Detecte ([place] PARRISH MD) Medications Given in ED Current Medications Medications Dose Ordered Sig/Kacy Route Start Time Stop Time Status Last Admin Dose Admin Cefepime HCl 1000 mg/Sodium Chloride 50 ml @ 100 mls/hr ONCE ONCE IV 12/02/22 12:15 12/02/22 12:44 DC 12/02/22 12:30 100 MLS/HR Iohexol 100 ml ONCE ONCE IV 12/02/22 12:30 12/02/22 12:31 DC 12/02/22 13:28 70 ML Sodium Chloride 100 ml ONCE ONCE IV 12/02/22 12:30 12/02/22 12:31 DC 12/02/22 13:28 70 ML Vancomycin HCl 1000 mg/Sodium Chloride 250 ml @ 250 mls/hr ONCE ONCE IV 12/02/22 13:30 12/02/22 14:29 DC 12/02/22 14:01 250 MLS/HR ([place] PARRISH MD) Vital Signs/I&O 12/02/22 12:03 Temp 36.2 Pulse 116 Resp 20 B/P (MAP) 145/72 (96) Pulse Ox 92 O2 Delivery Room Air ([place] PARRISH MD) Vital Signs/I&O Capillary Refill : Less Than 3 Seconds ([place] DUMONT) Blood Pressure Mean: 96 ECG Comment Sinus tachycardia with frequent supraventricular premature complexes, 116 bpm, QRS duration 86 MS, QTc 385 MS ([place] DUMONT) Departure Communication (PCP) Reviewed previous ER visits, H&P, lab testing. Patient recently admitted discharge on November 28 for pneumonia and UTI. 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 Follows Dr. Jenkins. Has not received treatment this week secondary to not feeling well. Increased short of breath weakness since his last visit. Recently finished antibiotics for Klebsiella UTI. Patient on arrival tachycardic but afebrile. He is not hypoxic. Patient denies of any chest pain. Septic work-up was initiated. Started on cefepime. CBC showed a white blood count of 3.5, hemoglobin 11, neutrophils 93%. Fairly similar to his last lab work. Chemistry showed sodium of 127, chloride 96. Normal troponin and BNP. Kidney function within normal limits. Normal lactic acid. COVID influenza was negative. Chest x-ray shows concern for progressive pneumonia. Due to his history of cancer rule out PE CT angio of the chest was ordered which showed no evidence of pulmonary embolism or acute aortic disease. Small left effusion. Extensive bilateral airspace and interstitial pulmonary infiltrates which has progressed since prior chest radiographs and outside CT scan from September 16, 2022. Area of consolidation of left lower lobe does measure slightly smaller when compared with outside CT scan but does show some more central cavitation on today's study. Features remain suggestive of infectious or inflammatory process. Added vancomycin. Due to being tachycardic and concerns for pneumonia with increased weakness patient will be admitted. Patient Does live at home by himself. According to family at bedside they are concerned that patient is not able to take care of himself at home. May benefit with long-term. According to family patient has been falling recently. Discussed these results with Dr. Cat hospitalist on-call who agreed to accept patient. Possible pneumonia urinalysis is currently pending. ([place] DUMONT) Impression Primary Impression: Pneumonia Disposition: ADMITTED INPATIENT Condition: Stable Admissions Decision to Admit Reason: Admit from ER (General) Decision to Admit/Date: Dec 02, 2022 Time/Decision to Admit Time: 13:26 ([place] DUMONT) Departure-Patient Inst. Referrals: BUDDY TURPIN (PCP/Family) Primary Care Physician [place] DUMONT Dec 02, 2022 12:17 [place] PARRISH MD Dec 02, 2022 14:34
[2022-12-02 12:21] LABS: BASOPHILS % (AUTO) 1 % (0-10); EOSINOPHILS % (AUTO) 0 % (0-10); HEMATOCRIT 33 % (40-54); LYMPHOCYTES # (AUTO) 0.1 10^3/uL (1.0-4.0); LYMPHOCYTES % (AUTO) 2 % (12-44); MEAN CORPUSCULAR HEMOGLOBIN 27 pg (25-34); MEAN CORPUSCULAR HGB CONC 33 g/dL (32-36); MEAN CORPUSCULAR VOLUME 82 fL (80-99); MONOCYTES # (AUTO) 0.1 10^3/uL (0.0-1.0); MONOCYTES % (AUTO) 4 % (0-12); NEUTROPHILS # (AUTO) 3.3 10^3/uL (1.8-7.8); NEUTROPHILS % (AUTO) 93 % (42-75); PLATELET COUNT 300 10^3/uL (130-400); WHITE BLOOD COUNT 3.5 10^3/uL (4.3-11.0)
[2022-12-02] MEDS ORDERED: NS 100 ML (IVPB) BAG IV ONE (12:30)
[2022-12-02] MEDS ORDERED: IOHEXOL 350 MG/ML 100 ML (OMNIPAQUE 350) VIAL IV ONE (12:30)
[2022-12-02] MEDS ORDERED: HOLD METFORMIN - RECEIVED CONTRAST 20 ML VIAL IV SCH (12:30)
[2022-12-02 12:34] LABS: INR 1.1 (0.8-1.4); PROTHROMBIN TIME PATIENT 14.8 SEC (12.2-14.7)
[2022-12-02 12:35] LABS: ALBUMIN 2.9 GM/DL (3.2-4.5); CHLORIDE 96 MMOL/L (98-107); POTASSIUM 4.3 MMOL/L (3.6-5.0); SODIUM 127 MMOL/L (135-145)
[2022-12-02 12:36] LABS: CALCIUM 9.1 MG/DL (8.5-10.1)
[2022-12-02 12:37] LABS: GLUCOSE 106 MG/DL (70-105)
[2022-12-02 12:38] LABS: TOTAL PROTEIN 6.2 GM/DL (6.4-8.2)
[2022-12-02 12:39] LABS: CARBON DIOXIDE 18 MMOL/L (21-32)
[2022-12-02 12:40] LABS: BILIRUBIN,TOTAL 0.7 MG/DL (0.1-1.0)
[2022-12-02 12:41] LABS: ALKALINE PHOSPHATASE 67 U/L (40-136); CREATININE SERUM 0.62 MG/DL (0.60-1.30); GFR ESTIMATED 98
[2022-12-02 12:42] LABS: BUN/CREATININE RATIO 34
[2022-12-02 12:44] LABS: ALANINE AMINOTRANSFERASE 34 U/L (0-55)
[2022-12-02 12:46] LABS: ANISOCYTOSIS SLIGHT; BAND NEUTROPHILS 4 %; BASOPHILS % (MANUAL) 0 %; EOSINOPHILS % (MANUAL) 0 %; LYMPHOCYTES % (MANUAL) 2 %; MONOCYTES % (MANUAL) 1 %; NEUTROPHILS % (MANUAL) 93 %
--- NOTE | 2022-12-02 12:55 | Diagnostic Imaging Report ---
CLINICAL INDICATIONS: Patient complains of shortness of breath, altered mental status and weakness. Sister states the patient has been falling a lot at home. EXAM: Portable chest x-ray upright view. COMPARISON: Chest x-ray dated 11/23/2022. FINDINGS: There is progression of patchy airspace opacities in the periphery of the left lung base and progression of minimal airspace opacities involving the right midlung field. There is slight improved aeration involving the left perihilar region. The remainder of the patchy infiltrates involving the upper lung hanks, bilateral perihilar regions, and bibasilar regions (left side more than the right), have not significantly changed in the interim. Hyperinflated lungs are again seen. Pulmonary vasculature and cardiac silhouette is within normal limits. There is no pleural effusion or pneumothorax. Infusaport is again seen overlying the right chest. There are hypertrophic spurs involving the thoracic spine. IMPRESSION: 1: There is interval progression of mild airspace opacities involving the lateral left lung base and right midlung field region. There is slight improved aeration of the left perihilar region. 2: Otherwise, stable diffuse bilateral lung infiltrates with the upper lobes affected the most. Dictated by: Dictated on workstation # [id number]
[2022-12-02] MEDS ORDERED: VANCOMYCIN INJECTION 1,000 MG in NS (IVPB) 250 ML 250 ML IV ONE (13:30)
--- NOTE | 2022-12-02 13:49 | Diagnostic Imaging Report ---
INDICATION: Shortness of breath with altered metal status and weakness. TECHNIQUE: After intravenous administration of contrast, thin section axial CT angiography of the chest was performed. 3D MIP reconstructions were made. All CT scans use one or more of the following dose optimizing techniques: automated exposure control, MA and/or KvP adjustment based on a patient size and exam type, or iterative reconstruction. No prior CT studies are available for comparison. Comparison is made with the chest regressed performed earlier the same day. A right chest wall port has the tip entering the right atrium. Evaluation of pulmonary arterial system is without evidence of thromboembolism. No filling defects are seen within central, lobar or segmental branches. The ascending thoracic aorta is mildly dilated at 4.3 cm. Aortic arch and descending thoracic aorta are normal caliber but heavily calcified. There is no dissection. No pericardial fluid is identified. There is a small left pleural effusion. There are extensive interstitial airspace opacities throughout both lungs. Multifocal areas of airspace consolidation bilateral upper lobes as well as left lower lobe is seen. There are some cystic changes in the bilateral lung hanks as well with features of cystic and cylindrical bronchiectasis. Centrally calcified spiculated density in the right upper lobe measures 11 mm. No axillary lymphadenopathy is identified. No definite hilar lymphadenopathy is identified. There is some soft tissue fullness subcarinal region, adenopathy cannot be excluded. Upper abdomen is unremarkable. IMPRESSION: 1. No evidence of pulmonary embolism or acute aortic disease. 2. Small left effusion. 3. Extensive bilateral airspace and interstitial pulmonary infiltrates which have progressed since prior chest radiographs as as well as an outside CT from 09/16/2022. An area of consolidation in the left lower lobe does measure slightly smaller when compared with outside CT but does show some more central cavitation on today's study. Features remain suggestive of infectious/inflammatory process, overall worsening in severity. Dictated by: Dictated on workstation # [id number]
[2022-12-02 15:00] VITALS: BP 116/58
[2022-12-02] MEDS ORDERED: BENZONATATE 100 MG CAPSULE PO PRN (15:00)
[2022-12-02] MEDS ORDERED: LACTATED RINGERS 1,000 ML 1,000 ML IV SCH (15:00)
[2022-12-02] MEDS ORDERED: VANCOMYCIN INJECTION 0.1 MG in NS (IVPB) 250 ML 250 ML IV SCH (15:00)
[2022-12-02] MEDS ORDERED: MELATONIN 3 MG TABLET PO PRN (15:00)
[2022-12-02] MEDS ORDERED: ONDANSETRON INJECTION 4 MG/2 ML (SDV) IV PRN (15:00)
[2022-12-02] MEDS ORDERED: ANTACID SUSPENSION 30 ML UDC PO PRN (15:00)
[2022-12-02] MEDS ORDERED: MILK OF MAGNESIA 400 MG/5 ML 30 ML UDC PO PRN (15:00)
--- NOTE | 2022-12-02 15:49 | History & Physical-Hospitalist ---
AUBREY BRIZUELA 12/02/22 1549: History of Present Illness HPI/Chief Complaint 77M w/ a hx of lung cancer, who was d/c last Monday for a Klebsiella UTI with a bx to take for 5 days, which he took, presents after having cough, SOB, and worsening weakness since then. Last night he was bed-bound and so decided to come in. CT shows he has b/l interstitial infiltrates, a small left effusion, and left lower lobe consolidation. He denies N/V, fever, chills, confusion, dizziness. He receives chemotherapy and radiation weekly. He hast not had his chemotherapy the last two Mondays, but did have his radiation last Monday. Source: patient Date Seen 12/02/22 Attending Physician Elisabeth Venegas PCP Admitting Physician: Adela Cat MD Attending Physician: Adela Cat MD Referring Physician Date of Admission Dec 02, 2022 at 14:08 Home Medications & Allergies Home Medications Reviewed patient Home Medication Reconciliation performed by pharmacy medication reconciliations broadcast operations technician and/or nursing. Patients Allergies have been reviewed. Allergies Allergies Coded Allergies No Known Drug Allergies (Unverified10/10/22) Past Iwgfnbi-Jgartd-Ognmrs Hx Patient Social History Tobacco Use?: No Tobacco type used: Pipe Smoking Status: Current Everyday Smoker (from age [age]) Use of E-Cig and/or Vaping dev: No Substance use?: No Alcohol Use?: Yes (10-15 per week for 35-40 years) Alcohol type: Beer Alcohol Frequency: Daily Pt feels they are or have been: No Immunizations Up To Date Tetanus Booster (TDap): Unknown Seasonal Allergies Seasonal Allergies: No Current Status Advance Directives: No Primary Language: Niuean Preferred Spoken Language: Niuean Past Medical History Surgeries: Abdominal (left inguinal hernia repair), Cystectomy (back) Bladder Infection Abdominal Hernia (left inguinal) Fractures (fingers on the right, ribs on the right) Lung (says stage 2B or 3A) Sleep Difficulties Blood Disorders: No Family Medical History Heart Disease (mom, sister), Cancer (dad had lung, mom had ovarian) Review of Systems Constitutional: No chills, No fever; weight loss (40 lbs since August) EENTM: No blurred vision, No double vision Respiratory: cough; No hemoptysis; short of breath Cardiovascular: No chest pain, No palpitations Gastrointestinal: No abdominal pain, No constipation, No diarrhea Genitourinary: No dysuria, No frequency, No hematuria Musculoskeletal: back pain (tail bone from falling); No joint pain Skin: No hx of skin cancer, No lesions, No rash Psychiatric/Neurological: Anxiety, Depressed Physical Exam Physical Exam Vital Signs Vital Signs - First Documented 12/02/22 12:03 Temp 36.2 Pulse 116 Resp 20 B/P (MAP) 145/72 (96) Pulse Ox 92 O2 Delivery Room Air Capillary Refill : Less Than 3 Seconds Height, Weight, BMI Height: '" Weight: lbs. oz. kg; 18.00 BMI Method: General Appearance: No Apparent Distress, Cachetic HEENT: PERRL/EOMI; No Scleral Icterus (L), No Scleral Icterus (R) Neck: Normal Inspection, Non Tender; No JVD Respiratory: Lungs Clear, Normal Breath Sounds, No Accessory Muscle Use, No Respiratory Distress, Other (CT shows pneumonia and b/l infiltrates, lungs sound fine though) Cardiovascular: No Edema, No Gallop, No JVD, No Murmur, Tachycardia Gastrointestinal: Non Tender, Soft; No Distended, No Guarding Extremity: Non Tender, No Pedal Edema Neurologic/Psychiatric: Alert, Oriented x3 Skin: Normal Color, Warm/Dry Results Results/Procedures Labs Laboratory Tests 12/02/22 12:11 Patient resulted labs reviewed. Assessment/Plan Assessment and Plan Pneumonia with sepsis (WBC <4, HR >90) Vancomycin Cefepime Lung cancer Hold chemo / radiation Hyponatremia Lactated ringer at 150ml Anemia Monitor DVT ppx Lovenox Weakness PT consult Normal diet ADELA CAT MD 12/02/22 1709: History of Present Illness Time Seen by a Provider: 15:15 Assessment/Plan Admission Diagnosis Sepsis due to HCAP Admission Status: Inpatient Order (span 2 midnights) Reason for Inpatient Admission: see below Assessment and Plan Pt admitted to the hospital due to sepsis from HCAP. Was in the hospital last week due to UTI and has not felt well for the past couple of days. Imaging shows pneumonia. Has leukopenia but is not on chemo for the past two weeks and tachycardia. Will continue abx for HCAP. Spoke with nurse for cancer center and he has not had any chemo or radiation this week and they plan to reassess next week. Pt states he was told has stage 2 or 3 cancer and that they couldn't cure it but that he could live with it for awhile with treatment. He does complain of peripheral neuropathy in his hands and I did speak with Dr Jenkins who states he is on taxol and that can be a side effect and the treatment is just to hold chemo which they are already doing. Pt mentioned to the retrofit installer that he may need a SNF upon DC. Diagnosis/Problems Diagnosis/Problems (1) Sepsis Status: Acute (2) Pneumonia Status: Acute (3) Lung cancer (4) Squamous cell carcinoma of left lung Status: Chronic Supervisory-Addendum Brief Verification & Attestation Participated in pt care: history, MDM, physical Personally performed: exam, history, MDM, supervision of care Care discussed with: Medical Student Procedures: n/a Results interpretation: Verified all documentation Verification and Attestation of Medical Student E/M Service A medical student performed and documented this service in my presence. I reviewed and verified all information documented by the medical student and made modifications to such information, when appropriate. I personally performed the physical exam and medical decision making. Adela Cat, Dec 02, 2022,17:11 AUBREY BRIZUELA Dec 02, 2022 15:49 ADELA CAT MD Dec 02, 2022 17:09
[2022-12-02] MEDS ORDERED: ENOXAPARIN 40 MG/0.4 ML SYRINGE SQ SCH (17:15)
[2022-12-02] MEDS ORDERED: ENOXAPARIN 30 MG/0.3 ML SYRINGE SC SCH (17:30)
[2022-12-02] MEDS: LACTATED RINGERS 1,000 ML 1,000 ML IV SCH (17:32)
[2022-12-02] MEDS: CEFEPIME INJECTION 1,000 MG in NS (IVPB) 50 ML 50 ML IV SCH (17:33)
[2022-12-02 18:59] VITALS: BP 122/58
[2022-12-02 19:00] VITALS: BP 122/58
[2022-12-02 23:36] VITALS: BP 150/74
[2022-12-03] MEDS: CEFEPIME INJECTION 1,000 MG in NS (IVPB) 50 ML 50 ML IV SCH ×5 (01:10→23:51)
[2022-12-03] MEDS: LACTATED RINGERS 1,000 ML 1,000 ML IV SCH ×2 (01:10→12:29)
[2022-12-03] MEDS: VANCOMYCIN 1 GM/NS 250 ML IVPB IV SCH ×4 (01:10→15:11)
[2022-12-03 03:56] VITALS: BP 138/64
[2022-12-03 06:20] LABS: BASOPHILS % (AUTO) 0 % (0-10); EOSINOPHILS % (AUTO) 0 % (0-10); HEMATOCRIT 30 % (40-54); HEMOGLOBIN 10.2 g/dL (13.3-17.7); LYMPHOCYTES # (AUTO) 0.1 10^3/uL (1.0-4.0); LYMPHOCYTES % (AUTO) 2 % (12-44); MEAN CORPUSCULAR HEMOGLOBIN 28 pg (25-34); MEAN CORPUSCULAR HGB CONC 35 g/dL (32-36); MEAN CORPUSCULAR VOLUME 80 fL (80-99); MEAN PLATELET VOLUME 8.9 fL (9.0-12.2); MONOCYTES # (AUTO) 0.1 10^3/uL (0.0-1.0); MONOCYTES % (AUTO) 3 % (0-12); NEUTROPHILS # (AUTO) 2.7 10^3/uL (1.8-7.8); NEUTROPHILS % (AUTO) 94 % (42-75); PLATELET COUNT 300 10^3/uL (130-400); WHITE BLOOD COUNT 2.9 10^3/uL (4.3-11.0)
[2022-12-03 06:32] LABS: ALBUMIN 2.4 GM/DL (3.2-4.5); POTASSIUM 3.9 MMOL/L (3.6-5.0)
[2022-12-03 06:33] LABS: CALCIUM 8.4 MG/DL (8.5-10.1)
[2022-12-03 06:34] LABS: TOTAL PROTEIN 5.2 GM/DL (6.4-8.2)
[2022-12-03 06:36] LABS: BILIRUBIN,TOTAL 0.7 MG/DL (0.1-1.0)
[2022-12-03 06:38] LABS: CREATININE SERUM 0.5 MG/DL (0.60-1.30)
[2022-12-03 07:42] VITALS: BP 131/66
[2022-12-03 09:32] VITALS: BP 131/66
[2022-12-03] MEDS ORDERED: RT-Ipratropium/Albuterol NEB 3 ML VIAL INH PRN (10:00)
--- NOTE | 2022-12-03 10:36 | Physical Therapy Evaluation ---
PT Evaluation-General Medical Diagnosis Admission Date Dec 02, 2022 at 14:08 Medical Diagnosis: pneumonia Onset Date: Dec 02, 2022 Therapy Diagnosis Therapy Diagnosis: decreased gait, decreased strength Precautions Precautions/Isolations: Fall Prevention, Standard Precautions Weight Bear Status Right Lower Extremity: Right Full Weight Bearing Left Lower Extremity: Left Full Weight Bearing Referral Physician: [facility] Reason for Referral: Evaluation/Treatment Medical History Additional Medical History lung cancer and currently completing chemotherapy and radiation Current History Pt. developed cough, SOB, and weakness at home, became bedbound. Pt. had recent hospitalization. Reviewed History: Yes Social History Home: Single Level Current Living Status: Alone Prior Prior Level of Function SCALE: Activities may be completed with or without assistive devices. 0-Vzzhograaf-nqngozy completes the activity by him/herself with no assistance from a helper. 5-Set-up or Clean-up Assistance-helper sets up or cleans up; patient completes activity. [employer] assists only prior to or following the activity. 4-Supervision or Touching Assistance-helper provides verbal cues and/or touching/steadying and/or contact guard assistance as patient completes activity. Assistance may be provided throughout the activity or intermittently. 3-Partial/Moderate Assistance-helper does LESS THAN HALF the effort. [employer] lifts, holds or supports trunk or limbs, but provides less than half the effort. 2-Substantial/Maximal Assistance-helper does MORE THAN HALF the effort. [employer] lifts or holds trunk or limbs and provides more than half the effort. 5-Jiioyjiqs-pmkuuj does ALL the effort. Patient does none of the effort to complete the activity. Or, the assistance of 2 or more helpers is required for the patient to complete the activity. If activity was not attempted, code reason: 7-Patient Refused. 9-Not Applicable-not attempted and the patient did not perform the activity bef ore the current illness, exacerbation or injury. 10-Not Attempted due to Environmental Limitations-(lack of equipment, weather r estraints, etc.). 88-Not Attempted due to Medical Conditions or Safety Concerns. Bed Mobility: 6 Transfers (B,C,W/C): 6 Gait: 6 Stairs: 6 Indoor Mobility (Ambulation): Independent Stairs: Independent Prior Devices Use: Walker PT Evaluation-Current Subjective Pt. in bed, agrees to PT. No specific complaints. Pt/Family Goals home Objective Patient Orientation: Person, Place, Time, Situation Attachments: IV ROM/Strength ROM Upper Extremities WNL ROM Lower Extremities WNL Strength Upper Extremities WNL Strength Lower Extremities Grossly 4/5 Integumentary/Posture Integumentary unremarkable Bowel Incontinence: No Bladder Incontinence: No Posture kyphotic Neuromuscular (Tone, Coordination, Reflexes) diminished Sensory Vision: Functional Hearing: Functional Sensation Right Upper Extremit: Intact Sensation Left Upper Extremity: Intact Sensation Right Lower Extremit: Intact Sensation Left Lower Extremity: Intact Transfers Lying to Sitting/Side of Bed(Q: 6 Sit to Stand (QC): 4 Chair/Pax-bl-Qplwl Xfer(QC): 4 Gait Does the Patient Walk?: Yes Mode of Locomotion: Walk Anticipated Mode of Locomotion: Walk Walk 10 feet (QC): 4 Distance: 10 ft Gait Assistive Device: FWW Balance Sitting Static: Good Sitting Dynamic: Good Standing Static: Fair Standing Dynamic: Fair Assessment/Needs Pt. is a 77 y.o. male with decreased mobility and strength. Pt. is currently CGA for ambulation using FWW and quickly became SOB with ambulation in room. Pt. would benefit from skilled PT to improve safe mobility and strength for return home. Rehab Potential: Good PT Penitentiary Goals Penitentiary Goals PT Drum Operator Goals Time Frame: Dec 10, 2022 Sit to Lying (QC): 6 Lying-Sitting on Side/Bed(QC): 6 Sit to Stand (QC): 6 Chair/Ejv-mj-Lefdw Xfer(QC): 6 Toilet Transfer (QC): 6 Does the Patient Walk: Yes Walk 10 feet (QC): 6 Walk 50ft with 2 Turns (QC): 6 Walk 150 ft (QC): 6 PT Plan Problem List Problem List: Activity Tolerance, Functional Strength, Safety, Balance, Gait, Transfer, Bed Mobility, ROM Treatment/Plan Treatment Plan: Continue Plan of Care Treatment Plan: Bed Mobility, Education, Functional Activity Joey, Functional Strength, Gait, Safety, Therapeutic Exercise, Transfers Treatment Duration: Dec 10, 2022 Frequency: 6 times per week Estimated Hrs Per Day: .25 hour per day Patient and/or Family Agrees t: Yes Time Time In: 929 Time Out: 939 DATE: Dec 03, 2022 Total Billed Treatment Time: 10 Total Billed Treatment 1, JAMES 10' ESTIVEN RAMIRES PT Dec 03, 2022 10:36
--- NOTE | 2022-12-03 11:16 | Progress Note - Hospitalist ---
AUBREY BRIZUELA 12/03/22 1116: Subjective HPI/CC On Admission 77M w/ a hx of lung cancer, who was d/c last Monday for a Klebsiella UTI with abx to take for 5 days, which he took, presents after having cough, SOB, and worsening weakness since then. Last night he was bed-bound and so decided to come in. CT shows he has b/l interstitial infiltrates, a small left effusion, and left lower lobe consolidation. He denies N/V, fever, chills, confusion, dizziness. He receives chemotherapy and radiation weekly. He hast not had his chemotherapy the last two Mondays, but did have his radiation last Monday. Subjective/Events-last exam Nimesh Melendez states he is feeling better today. He still has a dry cough, but denied SOB while laying in bed. He reports still feeling weak and having lost a lot of weight in the past week during his illness. He reports having trouble grasping objects, and his oncologist said he is taking Taxol, which can have that effect, and the tx is to stop taking the medication, which is already on hold this week anyway. He reports an increased appetite and is on a normal diet that we will supplement with Ensures to help him build some weight and strength back. He denied chest pain, palpitations, N/V, dizziness, confusion, or headaches. He also denied any dysuria, hematuria, or change in urinary frequency after having a UTI last week. Review of Systems General: No Chills, No Night Sweats; Fatigue HEENT: No Head Aches, No Visual Changes Pulmonary: Dyspnea, Cough Cardiovascular: No: Chest Pain, Palpitations Gastrointestinal: No: Nausea, Vomiting, Abdominal Pain, Diarrhea, Constipation, Melena, Hematochezia Genitourinary: No Dysuria, No Frequency, No Hematuria Musculoskeletal: back pain (tailbone) Neurological: Weakness; No: Numbness, Change in speech, Confusion Focused Exam Lactate Level 12/02/22 12:11: Lactic Acid Level 1.58 12/02/22 15:05: Lactic Acid Level 0.99 Objective Exam Vital Signs Vital Signs Date Time Temp Pulse Resp B/P (MAP) Pulse Ox O2 Delivery O2 Flow Rate FiO2 12/03/22 09:45 92 Room Air 0.00 12/03/22 09:32 36.4 106 21 12/03/22 07:42 20 131/66 (87) Capillary Refill : Less Than 3 Seconds General Appearance: No Apparent Distress, WD/WN, Chronically ill, Cachetic HEENT: PERRL/EOMI; No Scleral Icterus (L), No Scleral Icterus (R) Neck: Normal Inspection, Non Tender; No JVD Respiratory: Chest Non Tender, Lungs Clear, Normal Breath Sounds, No Accessory Muscle Use, No Respiratory Distress, Other (has pneumonia but lungs sound clear to me) Cardiovascular: No Edema, No Gallop, No JVD, No Murmur, Tachycardia Gastrointestinal: Non Tender, Soft; No Distended, No Guarding Extremity: Non Tender, No Pedal Edema Neurologic/Psychiatric: Alert, Oriented x3, Depressed Affect Skin: Normal Color, Warm/Dry Results/Procedures Lab Laboratory Tests 12/02/22 12:11 12/03/22 05:45 Patient resulted labs reviewed. Assessment/Plan Assessment and Plan Assess & Plan/Chief Complaint Pneumonia with sepsis (WBC <4k, HR >90) Vancomycin Cefepime Lung cancer Hold chemo / radiation Managed by oncology Hyponatremia Lactated ringer at 100ml Anemia Monitor DVT ppx Lovenox Weakness PT consult Encouraged ambulation Normal diet + Ensures to gain some weight and strength ADELA CAT MD 12/03/22 1450: Subjective HPI/CC On Admission Date Seen by Provider: Dec 03, 2022 Assessment/Plan Assessment and Plan Assess & Plan/Chief Complaint Pt reports feeling better today but still quite weak. No specific compliants but is worried about his ability to safely go home and thinks he will need some rehab. He is interested in IRF or SNF if needed. Is not eating well but is agreeable to Vanilla ensures to help with weight. Sister asks about resuming radiation but informed her this would have to wait until Monday when radiation oncology is back to assess him. Supervisory-Addendum Brief Verification & Attestation Participated in pt care: history, MDM, physical Personally performed: exam, history, MDM, supervision of care Care discussed with: Medical Student Procedures: n/a Results interpretation: Verified all documentation Verification and Attestation of Medical Student E/M Service A medical student performed and documented this service in my presence. I reviewed and verified all information documented by the medical student and made modifications to such information, when appropriate. I personally performed the physical exam and medical decision making. Adela Cat, Dec 03, 2022,14:48 AUBREY BRIZUELA Dec 03, 2022 11:16 ADELA CAT MD Dec 03, 2022 14:50
[2022-12-03 11:57] VITALS: BP 135/61
[2022-12-03] MEDS: RT-Ipratropium/Albuterol NEB 3 ML VIAL INH SCH ×3 (14:32→22:19)
[2022-12-03 15:41] VITALS: BP 93/52
[2022-12-03] MEDS ORDERED: AMIODARONE FOR BOLUS 150 MG in NS (IVPB) 100 ML 100 ML IV ONE (16:30)
[2022-12-03] MEDS: ENOXAPARIN 60 MG/0.6 ML SYRINGE SC SCH (16:32)
[2022-12-03] MEDS: AMIODARONE FOR DRIP 450 MG in NORMAL SALINE (EXCEL) 250 ML 250 ML IV SCH (16:34)
--- NOTE | 2022-12-03 16:36 | Tele-ICU Consult ---
Progress Note 77 y/o male with a known hx of lung cancer who is undergoing chemoradiation presents to [facility] with SOB. Was recently discharged with a dx of PNA w/u: CT chest A right chest wall port has the tip entering the right atrium. Evaluation of pulmonary arterial system is without evidence of thromboembolism. No filling defects are seen within central, lobar or segmental branches. The ascending thoracic aorta is mildly dilated at 4.3 cm. Aortic arch and descending thoracic aorta are normal caliber but heavily calcified. There is no dissection. No pericardial fluid is identified. There is a small left pleural effusion. There are extensive interstitial airspace opacities throughout both lungs. Multifocal areas of airspace consolidation bilateral upper lobes as well as left lower lobe is seen. There are some cystic changes in the bilateral lung hanks as well with features of cystic and cylindrical bronchiectasis. Centrally calcified spiculated density in the right upper lobe measures 11 mm. No axillary lymphadenopathy is identified. No definite hilar lymphadenopathy is identified. There is some soft tissue fullness subcarinal region, adenopathy cannot be excluded. Upper abdomen is unremarkable. IMPRESSION: 1. No evidence of pulmonary embolism or acute aortic disease. 2. Small left effusion. 3. Extensive bilateral airspace and interstitial pulmonary infiltrates which have progressed since prior chest radiographs as as well as an outside CT from 09/16/2022. An area of consolidation in the left lower lobe does measure slightly smaller when compared with outside CT but does show some more central cavitation on today's study. Features remain suggestive of infectious/inflammatory process, overall worsening in severity. IMP: likely PNA PLAN: hogan culture cefipime started Focused Exam Lactate Level 12/02/22 12:11: Lactic Acid Level 1.58 12/02/22 15:05: Lactic Acid Level 0.99 Height, Weight, BMI Height: '" Weight: lbs. oz. kg; 18.11 BMI Method: Labs Laboratory Tests 12/03/22 05:45 Results Results/Procedures Labs Laboratory Tests 12/02/22 12:11 12/03/22 05:45 Patient resulted labs reviewed. Results Labs Labs Laboratory Tests 12/03/22 05:45: White Blood Count 2.9L, Red Blood Count 3.68L, Hemoglobin 10.2L, Hematocrit 30L, Mean Corpuscular Volume 80, Mean Corpuscular Hemoglobin 28, Mean Corpuscular Hemoglobin Concent 35, Red Cell Distribution Width 15.6H, Platelet Count 300, Mean Platelet Volume 8.9L, Immature Granulocyte % (Auto) 1, Neutrophils (%) (Auto) 94H, Lymphocytes (%) (Auto) 2L, Monocytes (%) (Auto) 3, Eosinophils (%) (Auto) 0, Basophils (%) (Auto) 0, Neutrophils # (Auto) 2.7, Lymphocytes # (Auto) 0.1L, Monocytes # (Auto) 0.1, Eosinophils # (Auto) 0.0, Basophils # (Auto) 0.0, Immature Granulocyte # (Auto) 0.0, Sodium Level 128L, Potassium Level 3.9, Chloride Level 99, Carbon Dioxide Level 20L, Anion Gap 9, Blood Urea Nitrogen 14, Creatinine 0.50L, Estimat Glomerular Filtration Rate 105, BUN/Creatinine Ratio 28, Glucose Level 100, Calcium Level 8.4L, Corrected Calcium 9.7, Total Bilirubin 0.7, Aspartate Amino Transf (AST/SGOT) 48H, Alanine Aminotransferase (ALT/SGPT) 31, Alkaline Phosphatase 58, Total Protein 5.2L, Albumin 2.4L Microbiology 12/02/22 Blood Culture - Preliminary, Resulted CHICHO WHITE MD Dec 03, 2022 16:36
--- NOTE | 2022-12-03 19:40 | Consultation-Cardiology ---
HPI-Cardiology Cardiology Consultation Date of Consultation 12/03/22 Date of Admission Time Seen by Provider: 17:15 HPI Patient is a 77-year-old gentleman with a history of lung cancer undergoing chemo and XRT, recent Klebsiella pneumonia, history of tobacco who presented for evaluation of worsening shortness of breath cough and weakness. Patient was recently discharged from the facility for Klebsiella pneumonia. He was discharged on antibiotics. He noted that he became progressively more short of breath and weak. He got to the point where he could not even get out of bed. In that setting he decided to come in for evaluation. He was found to have bilateral pneumonia. Flu AB were negative. COVID was negative. Chest CT was consistent with a left lower lobe consolidation and central cavitation. BNP was not in the normal range troponin was in the normal range. While on the medical floor he developed acute tachycardia. Heart rates were noted to be in the 140s. EKG was obtained and demonstrated atrial flutter. In that setting he was transferred to the unit and cardiology is consulted to aid in management. Patient states that he cannot tell that he is in atrial fibrillation. Home Medications & Allergies Allergies: Coded Allergies: No Known Drug Allergies (Unverified , 10/10/22) AZW-Arirkk-Kqofzn Hx Patient Social History Smoking Status: Current Everyday Smoker (from age [age]) Alcohol Use?: No Family Medical History Significant Family History: Heart Disease (mom, sister), Cancer (dad had lung, mom had ovarian) Review of Systems-General Review of Systems Constitutional: No chills, No diaphoresis, No fever; malaise, weakness EENTM: No ear pain, No blurred vision, No mouth pain, No mouth swelling, No throat pain, No throat swelling Respiratory: cough, dyspnea on exertion Cardiovascular: No chest pain Gastrointestinal: No abdominal pain, No diarrhea, No nausea, No vomiting Genitourinary: No decreased output, No discharge Musculoskeletal: No back pain, No joint pain Skin: No change in color, No change in hair/nails Psychiatric/Neurological: Anxiety, Depressed All systems were reviewed and are negative except for what is been described in HPI. All Other Systems Reviewed Negative Unless Noted: Yes ECG Impression ECG Comment EKG #1 demonstrates sinus tachycardia with PACs at a heart rate of 116 bpm. Physical Exam Physical Exam Vital Signs Vital Signs - First Documented 12/02/22 12/03/22 12/03/22 12:03 08:00 09:32 Temp 36.2 Pulse 116 Resp 20 B/P (MAP) 145/72 (96) Pulse Ox 92 O2 Delivery Room Air O2 Flow Rate 0.00 FiO2 21 Capillary Refill : Less Than 3 Seconds Height, Weight, BMI Height: '" Weight: lbs. oz. kg; 18.11 BMI Method: General Appearance: No Apparent Distress, WD/WN, Chronically ill, Cachetic Eyes: Bilateral Eye Normal Inspection, Bilateral Eye PERRL, Bilateral Eye Abnormal EOM HEENT: PERRL/EOMI; No Scleral Icterus (L), No Scleral Icterus (R) Neck: Normal Inspection, Non Tender; No JVD Respiratory: Chest Non Tender, Lungs Clear, Normal Breath Sounds, No Accessory Muscle Use, No Respiratory Distress, Other (has pneumonia but lungs sound clear to me) Cardiovascular: No Edema, No Gallop, No JVD, No Murmur, Tachycardia Gastrointestinal: Non Tender, Soft; No Distended, No Guarding Extremity: Non Tender, No Pedal Edema Neurologic/Psychiatric: Alert, Oriented x3, Depressed Affect Skin: Normal Color, Warm/Dry Comments Gen: NAD, resting comfortably; A+oX3 Neck: No bruits, no JVD Lungs: Normal breath sounds, good air movement. no wheezing rales or rhonchi. CV: nl s1/s2; no murmurs gallops or rubs. Regular rate and rhythm Abd: Soft nontender nondistended, no hepatosplenomegaly, positive bowel sounds.; Ext: 2+ radial and DP pulses; no c-c, wwp, no edema A/P-Cardiology Assessment/Plan 77-year-old gentleman with a history of lung cancer undergoing chemo and XRT, recent Klebsiella pneumonia, history of tobacco who presented for evaluation of worsening shortness of breath cough and weakness., Found to have a pneumonia and subsequently developed atrial fibrillation with rapid ventricular response. ##Atrial fibrillation with rapid ventricular response. Recommended that patient be started on amiodarone, slow bolus over 30 minutes and a drip at 1 jennifer per minute. Continue regular amiodarone protocol. Patient will only be on amiodarone for 24 hours and then will transition him to beta-blockade. Trying to be cognizant of his current lung status with lung cancer. Upon my arrival to the ICU, his heart rates were back in the normal sinus rhythm with short pa roxysms of atrial fib. We will plan to continue amiodarone drip overnight and start metoprolol as as the patient is able to tolerate. Currently on Lovenox twice daily. Patient states that this is the first time he has been told he has atrial fibrillation. He has been hospitalized for some time over the past month without any evidence of atrial fibrillation. However, patient does not have a good warning system to alert him that he is experiencing tachycardia. As such I do not think it is unreasonable to continue with Lovenox for now and subsequently transition to Eliquis 5 mg p.o. twice daily. We just want to ensure that he has no brain mets as this could potentially be catastrophic. Suspected nidus for atrial fibrillation is his active lung infection. Check TSH and free T4. ##Pneumonia: Continue with broad-spectrum anti-infectives as you are doing vancomycin and cefepime. Follow-up blood cultures. MARY GRACE KIMBROUGH MD Dec 03, 2022 7:40 pm
[2022-12-04] MEDS ORDERED: AMIODARONE (Pyxis Kit Only) DRIP 450 MG/9 ML VIAL IV ONE (01:55)
[2022-12-04] MEDS ORDERED: NORMAL SALINE (EXCEL) 250 ML 250 ML ONE (01:56)
[2022-12-04] MEDS: AMIODARONE FOR DRIP 450 MG in NORMAL SALINE (EXCEL) 250 ML 250 ML IV SCH (01:59)
[2022-12-04] MEDS: VANCOMYCIN 1 GM/NS 250 ML IVPB IV SCH ×2 (02:01)
[2022-12-04] MEDS: RT-Ipratropium/Albuterol NEB 3 ML VIAL INH SCH ×6 (02:10→22:03)
[2022-12-04] MEDS: ENOXAPARIN 60 MG/0.6 ML SYRINGE SC SCH ×2 (04:13→16:48)
[2022-12-04 04:30] LABS: BASOPHILS % (AUTO) 0 % (0-10); EOSINOPHILS % (AUTO) 0 % (0-10); HEMATOCRIT 29 % (40-54); HEMOGLOBIN 10.2 g/dL (13.3-17.7); LYMPHOCYTES # (AUTO) 0.1 10^3/uL (1.0-4.0); LYMPHOCYTES % (AUTO) 2 % (12-44); MEAN CORPUSCULAR HEMOGLOBIN 27 pg (25-34); MEAN CORPUSCULAR HGB CONC 35 g/dL (32-36); MEAN CORPUSCULAR VOLUME 79 fL (80-99); MEAN PLATELET VOLUME 8.5 fL (9.0-12.2); MONOCYTES # (AUTO) 0.1 10^3/uL (0.0-1.0); MONOCYTES % (AUTO) 3 % (0-12); NEUTROPHILS # (AUTO) 2.9 10^3/uL (1.8-7.8); NEUTROPHILS % (AUTO) 94 % (42-75); PLATELET COUNT 288 10^3/uL (130-400); WHITE BLOOD COUNT 3.1 10^3/uL (4.3-11.0)
[2022-12-04 04:38] LABS: ALBUMIN 2.4 GM/DL (3.2-4.5); POTASSIUM 3.6 MMOL/L (3.6-5.0)
[2022-12-04 04:39] LABS: CALCIUM 8.4 MG/DL (8.5-10.1)
[2022-12-04 04:40] LABS: TOTAL PROTEIN 5.1 GM/DL (6.4-8.2)
[2022-12-04 04:42] LABS: BILIRUBIN,TOTAL 0.5 MG/DL (0.1-1.0)
[2022-12-04 04:44] LABS: CREATININE SERUM 0.48 MG/DL (0.60-1.30)
[2022-12-04] MEDS ORDERED: NS IV 500 ML 500 ML IV PRN (04:45)
[2022-12-04] MEDS: POTASSIUM CL 10MEQ/50ML IVPB 50 ML IV SCH ×4 (05:03→08:29)
[2022-12-04] MEDS: MAGNESIUM 1 GM/100 ML IVPB 100 ML IV SCH ×7 (05:04→08:29)
[2022-12-04 05:07] LABS: FREE T4 (FREE THYROXINE) 0.96 NG/DL (0.70-1.48)
[2022-12-04] MEDS ORDERED: POTASSIUM CHLORIDE 20 MEQ TABLET PO ONE ×2 (05:15→08:00)
[2022-12-04] MEDS ORDERED: MAGNESIUM 1 GM/100 ML IVPB 400 ML IV ONE (05:25)
[2022-12-04] MEDS: CEFEPIME INJECTION 1,000 MG in NS (IVPB) 50 ML 50 ML IV SCH ×4 (05:30→23:24)
[2022-12-04] MEDS ORDERED: POTASSIUM CHLORIDE 20 MEQ TABLET PO SCH ×2 (06:00→08:00)
[2022-12-04] MEDS ORDERED: POTASSIUM CL 10MEQ/50ML IVPB 200 ML IV ONE (06:22)
--- NOTE | 2022-12-04 06:48 | Cardiology Progress Note ---
Subjective Date Seen by Provider: Dec 04, 2022 Time Seen by Provider: 04:45 Subjective/Events-last exam No acute issues overnight. Patient doing reasonably well. No further episodes of atrial fibrillation. Continues in normal sinus rhythm Focused Exam Lactate Level 12/02/22 12:11: Lactic Acid Level 1.58 12/02/22 15:05: Lactic Acid Level 0.99 Objective-Cardiology Exam Last Set of Vital Signs Vital Signs 12/03/22 12/03/22 12/03/22 12/04/22 12/04/22 09:32 15:41 19:19 02:11 06:00 Temp 36.3 Pulse 105 Resp 24 B/P (MAP) 158/70 (99) Pulse Ox 96 O2 Delivery Room Air O2 Flow Rate 0.00 FiO2 21 I&O Intake and Output 12/04/22 00:00 Intake Total 810 ml Output Total 1175 ml Balance -365 ml Intake Oral 810 ml Output Urine Total 1175 ml Other physical findings Gen: NAD, resting comfortably; A+oX3 Neck: No bruits, no JVD Lungs:Diminishedl breath sounds bilaterally . no pa wheezing rales or rhonchi. CV: distant heart sounds, nl s1/s2; no murmurs gallops or rubs. Regular rate and rhythm Abd: Soft nontender nondistended, no hepatosplenomegaly, positive bowel sounds.; Ext: 2+ radial and DP pulses; no c-c, wwp, no edema A/P-Cardiology Results Lab Laboratory Tests 12/04/22 04:15 A/P-Cardiology Assessment/Plan 77-year-old gentleman with a history of lung cancer undergoing chemo and XRT, recent Klebsiella pneumonia, history of tobacco who presented for evaluation of worsening shortness of breath cough and weakness., Found to have a pneumonia and subsequently developed atrial fibrillation with rapid ventricular response. ##Atrial fibrillation with rapid ventricular response. Patient continues in normal sinus rhythm. Continue amiodarone drip for full 24-hour protocol and then stop. Start metoprolol 25 mg p.o. twice daily and uptitrate for heart rate response. Continue Lovenox 1 mg/kg twice daily. Transition to Eliquis 5 mg p.o. twice daily prior to discharge. Patient does not have a good warning system to alert him that he is experiencing atrial fibrillation. Suspected nidus for atrial fibrillation is his active lung infection. TSH and free T4 within normal range. ##Pneumonia: Continue with broad-spectrum anti-infectives as you are doing va ncomycin and cefepime. Follow-up blood cultures. MARY GRACE KIMBROUGH MD Dec 04, 2022 6:48 am
[2022-12-04] MEDS: meTOprolol TARTRATE (IR) 25 MG TABLET PO SCH ×2 (08:29→20:32)
--- NOTE | 2022-12-04 10:39 | Tele-ICU Progress Note ---
Subjective Date Seen by a Provider: Dec 04, 2022 Time Seen by a Provider: 10:34 Subjective/Events-last exam (Tele-ICU Physician , Progress Note ) Service provided via interactive audio and video telecommunications E-CARE system to a patient admitted to ICU bed in [facility]. Patient is seen today due to persistent need of ICU care Available chart/ vitals / labs / Images reviewed Video assessment done using teleICU camera, rest of exam as per RN He is a 77-year-old male with past medical history of lung cancer status post chemoradiation therapy, COPD recently admitted and discharged for Klebsiella pneumonia urinary tract infection now admitted via emergency room with a complaint of shortness of breath and cough and he is found to have a multifocal pneumonia. During the hospital stay he is noted to have atrial fibrillation with rapid ventricular rate for which she is started on amiodarone drip and his rhythm converted to sinus rhythm. His shortness of breath markedly improved. Review of the CT scan of the chest showed no pulmonary emboli but he does look like he has chronic pulmonary fibrosis with superadded multifocal pneumonia. Impression 1. Atrial fibrillation with rapid ventricular rate currently converted to normal sinus rhythm 2. Advanced lung cancer status post chemoradiation therapy 3. Underlying pulmonary fibrosis 4. Multifocal pneumonia. Recommendations 1. Continue IV antibiotic therapy and supplemental oxygen 2. Amiodarone treatment per cardiology 3. DVT prophylaxis CODE STATUS. He is a DNR status Coordination of care with primary care physician and bedside consultants. I am remotely monitoring this patient from Tele icu station in [place]. I am unable to do the bedside exam, and history/physical and pertinent information is taken from other notes in the computer and bedside staff. Certain portions of this document may have been dictated utilizing voice recognition technology such as [employer]. Inherent to this technology, typographical and grammatical errors may exist. As much as I am diligent to identify and correct to these mistakes, some errors may remain in the document. Critical care time devoted to this patient today is approximately is--15 minutes. Sepsis Event Evaluation Height, Weight, BMI Height: '" Weight: lbs. oz. kg; 17.93 BMI Method: Focused Exam Lactate Level 12/02/22 12:11: Lactic Acid Level 1.58 12/02/22 15:05: Lactic Acid Level 0.99 Exam Exam Patient acknowledged, consented, and participated in this virtual visit which was conducted using real time audio/video Vital Signs Date Time Temp Pulse Resp B/P (MAP) Pulse Ox O2 Delivery O2 Flow Rate FiO2 12/04/22 10:00 92 132/70 (78) 96 Room Air 12/04/22 09:00 99 140/63 (95) 97 Room Air 12/04/22 08:00 111 135/76 (92) 95 Room Air 12/04/22 07:48 Room Air 12/04/22 07:00 113 12/04/22 07:00 102 144/58 (85) 93 Room Air 12/04/22 06:55 93 Room Air 0.00 12/04/22 06:00 105 158/70 (99) 96 Room Air 12/04/22 05:00 105 146/75 (98) 97 Room Air 12/04/22 04:00 105 157/67 (97) 95 Room Air 12/04/22 04:00 Room Air 12/04/22 03:00 108 160/66 (97) 94 Room Air 12/04/22 02:11 96 Room Air 0.00 12/04/22 02:00 106 151/83 (105) 93 Room Air 12/04/22 01:18 99 12/04/22 01:00 100 145/66 (92) 96 Room Air 12/04/22 00:00 95 135/59 (84) 96 Room Air 12/03/22 23:19 Room Air 12/03/22 23:00 96 136/65 (88) 97 Room Air 12/03/22 22:19 96 Room Air 0.00 12/03/22 22:00 99 131/56 (81) 95 Room Air 12/03/22 21:00 96 122/57 (78) 97 Room Air 12/03/22 20:00 101 103/50 (67) 97 Room Air 12/03/22 20:00 Room Air 12/03/22 19:19 36.3 98 103/50 (67) 98 Room Air 12/03/22 19:00 108 115/58 (77) 98 Room Air 12/03/22 19:00 110 12/03/22 18:42 95 Room Air 0.00 12/03/22 18:00 98 98/48 (55) Room Air 12/03/22 17:00 96 111/50 (71) 98 Room Air 12/03/22 17:00 97 12/03/22 16:16 141 104/47 12/03/22 16:00 141 104/47 (66) 98 Room Air 12/03/22 15:41 37.5 140 24 93/52 (66) 94 12/03/22 14:32 91 Room Air 0.00 12/03/22 11:57 36.4 108 18 135/61 (85) 94 Room Air I & O 12/04/22 07:00 Intake Total 685 ml Output Total 1000 ml Balance -315 ml Height & Weight Height: '" Weight: lbs. oz. kg; 17.93 BMI Method: General Appearance: No Apparent Distress, WD/WN, Chronically ill, Cachetic HEENT: PERRL/EOMI; No Scleral Icterus (L), No Scleral Icterus (R) Neck: Normal Inspection, Non Tender; No JVD Respiratory: Chest Non Tender, Lungs Clear, Normal Breath Sounds, No Accessory Muscle Use, No Respiratory Distress, Other (has pneumonia but lungs sound clear to me) Cardiovascular: No Edema, No Gallop, No JVD, No Murmur, Tachycardia Capillary Refill: Less Than 3 Seconds Gastrointestinal: normal bowel sounds, non tender, soft Extremity: Non Tender, No Pedal Edema Neurologic/Psychiatric: Alert, Oriented x3, Depressed Affect Skin: Normal Color, Warm/Dry Results Lab Laboratory Tests 12/02/22 12:11 12/03/22 05:45 12/04/22 04:15 Assessment/Plan Assessment/Plan as above Critical Care: Critically Ill Patient Time spent with patient (mins): 15 CRISS PAULA MD Dec 04, 2022 10:39
[2022-12-04] MEDS: ACETAMINOPHEN 500 MG TABLET PO PRN ×2 (11:19→23:24)
[2022-12-04] MEDS: LIDOCAINE 4% PATCH TOP SCH (11:24)
--- NOTE | 2022-12-04 11:40 | Progress Note - Hospitalist ---
AUBREY BRIZUELA 12/04/22 1140: Subjective HPI/CC On Admission Date Seen by Provider: Dec 04, 2022 77M w/ a hx of lung cancer, who was d/c last Monday for a Klebsiella UTI with abx to take for 5 days, which he took, presents after having cough, SOB, and worsening weakness since then. Last night he was bed-bound and so decided to come in. CT shows he has b/l interstitial infiltrates, a small left effusion, and left lower lobe consolidation. He denies N/V, fever, chills, confusion, dizziness. He receives chemotherapy and radiation weekly. He hast not had his chemotherapy the last two Mondays, but did have his radiation last Monday. Subjective/Events-last exam Nimesh Melendez reports feeling all right today with nothing bothering him other than his tail bone from falling last week at home. He had an episode of a-fib l ast night and was moved to the ICU. He states he did not notice it when it happened. His vitals are stable now. He is being given Amiodarone that will transition to Metoprolol after 24h of it per the rfp writer. He says his dry cough feels like it is getting worse, but his weakness is the same. He has been eating but needs to be eating more than he has. He says his appetite comes and goes and sometimes when food is brought to him, it is at a time he is not that hungry, and other times he is hungry and has no food around. He denies N/V, fever, chills, SOB, chest pain, palpitations, visual changes, confusion, or dizziness. Review of Systems General: No Chills, No Night Sweats; Fatigue HEENT: No Head Aches, No Visual Changes Pulmonary: No Dyspnea; Cough (dry) Cardiovascular: No: Chest Pain, Palpitations Gastrointestinal: Constipation (says last BM 3 days ago); No: Nausea, Vomiting, Abdominal Pain Genitourinary: No Dysuria, No Frequency, No Hematuria Musculoskeletal: back pain (tail bone); No: neck pain Neurological: No: Weakness, Numbness, Change in speech, Confusion Focused Exam Lactate Level 12/02/22 12:11: Lactic Acid Level 1.58 12/02/22 15:05: Lactic Acid Level 0.99 Objective Exam Vital Signs Vital Signs Date Time Temp Pulse Resp B/P (MAP) Pulse Ox O2 Delivery O2 Flow Rate FiO2 12/04/22 11:00 96 115/91 (93) 95 Room Air 12/04/22 10:38 0.00 12/03/22 19:19 36.3 12/03/22 15:41 24 12/03/22 09:32 21 Capillary Refill : Less Than 3 Seconds General Appearance: No Apparent Distress, WD/WN, Chronically ill, Cachetic HEENT: PERRL/EOMI; No Scleral Icterus (L), No Scleral Icterus (R) Neck: Normal Inspection, Non Tender; No JVD Respiratory: Lungs Clear, Normal Breath Sounds, No Accessory Muscle Use, No Respiratory Distress Cardiovascular: No Edema, No Gallop, No JVD, No Murmur, Tachycardia Gastrointestinal: Non Tender, Soft; No Distended, No Guarding Extremity: Normal Inspection, Non Tender, No Pedal Edema Neurologic/Psychiatric: Alert, Oriented x3, Depressed Affect (but better than when I saw him yesterday) Skin: Normal Color, Warm/Dry Results/Procedures Lab Laboratory Tests 12/04/22 04:15 Patient resulted labs reviewed. Assessment/Plan Assessment and Plan Assess & Plan/Chief Complaint Pneumonia with sepsis (WBC <4k, HR >90) Vancomycin Cefepime Paroxysmal a-fib with RVR Amiodarone for 24h -> Metoprolol Check TSH and free T4 Lung cancer Hold chemo / radiation Managed by oncology Hyponatremia Lactated ringer at 100ml Anemia Stable, monitor Mild hyperglycemia Monitor DVT ppx Lovenox -> Eliquis 5mg but ensure no brain mets Weakness PT consult Encouraged ambulation Normal diet + Ensures to gain some weight and strength ADELA CAT MD 12/04/22 1202: Assessment/Plan Assessment and Plan Assess & Plan/Chief Complaint Patient reports doing well this morning. He did develop atrial flutter with rapid ventricular rate while on the floor yesterday so was transferred to the ICU and started on amiodarone drip due to acute onset and lower blood pressures. We will continue amiodarone drip and then start oral this evening. Cardiology was consulted and recommended echo metoprolol and Lovenox. Will add remeron to help with appetite. IVF dced yesterday. Supervisory-Addendum Brief Verification & Attestation Participated in pt care: history, MDM, physical Personally performed: exam, history, MDM, supervision of care Care discussed with: Medical Student Procedures: n/a Results interpretation: Verified all documentation Verification and Attestation of Medical Student E/M Service A medical student performed and documented this service in my presence. I reviewed and verified all information documented by the medical student and made modifications to such information, when appropriate. I personally performed the physical exam and medical decision making. Adela Cat, Dec 04, 2022,12:02 AUBREY BRIZUELA Dec 04, 2022 11:40 ADELA CAT MD Dec 04, 2022 12:02
[2022-12-04] MEDS ORDERED: TROUGH ORDER-PHARMACY XX ONE (13:00)
[2022-12-04] MEDS: VANCOMYCIN 1250 MG/NS 250 ML PREMIX IV SCH (14:40)
[2022-12-04] MEDS: LIDOCAINE PATCH REMOVAL TP SCH (20:32)
[2022-12-04] MEDS: MIRTAZAPINE 15 MG TABLET PO SCH (20:32)
[2022-12-04] MEDS ORDERED: AMIODARONE 200 MG TABLET PO SCH (21:00)
[2022-12-05] MEDS: VANCOMYCIN 1250 MG/NS 250 ML PREMIX IV SCH ×2 (02:01→14:03)
[2022-12-05] MEDS: RT-Ipratropium/Albuterol NEB 3 ML VIAL INH SCH ×6 (02:12→22:53)
[2022-12-05] MEDS: ENOXAPARIN 60 MG/0.6 ML SYRINGE SC SCH ×2 (03:21→17:17)
[2022-12-05 03:36] LABS: BASOPHILS % (AUTO) 0 % (0-10); EOSINOPHILS % (AUTO) 0 % (0-10); HEMATOCRIT 28 % (40-54); HEMOGLOBIN 9.4 g/dL (13.3-17.7); LYMPHOCYTES # (AUTO) 0.1 10^3/uL (1.0-4.0); LYMPHOCYTES % (AUTO) 3 % (12-44); MEAN CORPUSCULAR HEMOGLOBIN 27 pg (25-34); MEAN CORPUSCULAR HGB CONC 34 g/dL (32-36); MEAN CORPUSCULAR VOLUME 79 fL (80-99); MONOCYTES # (AUTO) 0.1 10^3/uL (0.0-1.0); MONOCYTES % (AUTO) 4 % (0-12); NEUTROPHILS # (AUTO) 2.9 10^3/uL (1.8-7.8); NEUTROPHILS % (AUTO) 93 % (42-75); PLATELET COUNT 300 10^3/uL (130-400); WHITE BLOOD COUNT 3.1 10^3/uL (4.3-11.0)
[2022-12-05 04:12] LABS: ALBUMIN 2.3 GM/DL (3.2-4.5); POTASSIUM 3.6 MMOL/L (3.6-5.0)
[2022-12-05 04:13] LABS: CALCIUM 7.9 MG/DL (8.5-10.1)
[2022-12-05 04:14] LABS: TOTAL PROTEIN 4.8 GM/DL (6.4-8.2)
[2022-12-05 04:16] LABS: BILIRUBIN,TOTAL 0.5 MG/DL (0.1-1.0)
[2022-12-05 04:18] LABS: CREATININE SERUM 0.51 MG/DL (0.60-1.30)
[2022-12-05] MEDS: POTASSIUM CL 10MEQ/50ML IVPB 50 ML IV SCH ×5 (04:38→07:00)
[2022-12-05] MEDS ORDERED: POTASSIUM CL 10MEQ/50ML IVPB 150 ML IV ONE (04:43)
[2022-12-05] MEDS: MAGNESIUM 1 GM/100 ML IVPB 100 ML IV SCH ×3 (04:59→05:07)
[2022-12-05] MEDS ORDERED: MAGNESIUM 1 GM/100 ML IVPB 100 ML IV ONE (05:00)
[2022-12-05] MEDS: CEFEPIME INJECTION 1,000 MG in NS (IVPB) 50 ML 50 ML IV SCH ×4 (06:07→23:41)
--- NOTE | 2022-12-05 07:41 | Physical Therapy Progress Note ---
Therapy Progress Note Patient transferred to ICU due to A-fib with RVR. PT will require new orders when patient is deemed medically stable and able to safely participate with skilled therapy. BRYNN SELLERS PT Dec 05, 2022 07:41
--- NOTE | 2022-12-05 08:55 | Cardiology Progress Note ---
Subjective Date Seen by Provider: Dec 05, 2022 Time Seen by Provider: 08:51 Subjective/Events-last exam Patient was seen at bedside, laying down comfortably, denied any chest pain. Still having shortness of breath Events from the weekend were reviewed Focused Exam Lactate Level 12/02/22 12:11: Lactic Acid Level 1.58 12/02/22 15:05: Lactic Acid Level 0.99 Objective-Cardiology Exam Last Set of Vital Signs Vital Signs 12/03/22 12/05/22 12/05/22 12/05/22 09:32 03:15 05:00 08:00 Temp 37.1 Pulse 100 Resp 22 B/P (MAP) 131/73 (92) Pulse Ox 95 O2 Delivery Nasal Cannula O2 Flow Rate 2.00 FiO2 21 I&O Intake and Output0 12/05/22 00:00 Intake Total 575 ml Output Total 1525 ml Balance -950 ml Intake Oral 525 ml IV Total 50 ml Output Urine Total 1525 ml General: Alert, Oriented X3, Cooperative HEENT: Atraumatic, PERRLA Neck: Supple, No JVD, No Thyromegaly Lungs: Normal Air Movement, Other (Bilateral rhonchi) Heart: Regular Rate, Normal S1, Normal S2, No Murmurs Abdomen: Normal Bowel Sounds, Soft, No Tenderness, No Hepatosplenomegaly, No Masses Extremities: No Clubbing, No Cyanosis, No Edema, Normal Pulses, No Tenderness/Swelling Skin: No Rashes, No Breakdown, No Significant Lesion Neuro: Normal Speech, Normal Tone, Sensation Intact Psych/Mental Status: Mental Status NL, Mood NL Results Lab Laboratory Tests 12/05/22 03:29 A/P-Cardiology Admission Diagnosis Pneumonia Shortness of breath Tachycardia Generalized weakness Assessment/Plan Pneumonia, receiving antibiotics Managed by primary care physician Sinus tachycardia, questionable transient atrial fibrillation/flutter Twelve-lead EKG since admission showing sinus tachycardia with occasional APCs. I will repeat twelve-lead EKG, discontinue amiodarone. Planning to switch Lovenox to 40 mg daily Continue on metoprolol and continue to monitor Evaluate 2D echo Hypertension, monitor blood pressure Generalized weakness secondary to pneumonia. IRWIN PETERS MD Dec 05, 2022 08:55
[2022-12-05] MEDS: LIDOCAINE 4% PATCH TOP SCH (10:03)
[2022-12-05] MEDS: meTOprolol TARTRATE (IR) 25 MG TABLET PO SCH ×2 (10:03→20:09)
--- NOTE | 2022-12-05 10:09 | Tele-ICU Progress Note ---
Subjective Date Seen by a Provider: Dec 05, 2022 Time Seen by a Provider: 10:06 Subjective/Events-last exam (Tele-ICU Physician , Progress Note ) Service provided via interactive audio and video telecommunications E-CARE system to a patient admitted to ICU bed in [facility]. Patient is seen today due to persistent need of ICU care Available chart/ vitals / labs / Images reviewed Video assessment done using teleICU camera, rest of exam as per RN He is a 77-year-old male with past medical history of lung cancer status post chemoradiation therapy, COPD recently admitted and discharged for Klebsiella pneumonia urinary tract infection now admitted via emergency room with a complaint of shortness of breath and cough and he is found to have a multifocal pneumonia. During the hospital stay he is noted to have atrial fibrillation with rapid ventricular rate for which she is started on amiodarone drip and his rhythm converted to sinus rhythm. His shortness of breath markedly improved. Review of the CT scan of the chest showed no pulmonary emboli but he does look like he has chronic pulmonary fibrosis with superadded multifocal pneumonia. 12/05/22. Now he is in NSR. on PO amiodorone. Hemodynamically stable Impression 1. Atrial fibrillation with rapid ventricular rate currently converted to normal sinus rhythm 2. Advanced lung cancer status post chemoradiation therapy 3. Underlying pulmonary fibrosis 4. Multifocal pneumonia. Recommendations 1. Continue IV antibiotic therapy and supplemental oxygen 2. Amiodarone treatment per cardiology 3. DVT prophylaxis CODE STATUS. He is a DNR status Coordination of care with primary care physician and bedside consultants. Reviewed with COMMUNICATIONS MEDIA PROFESSOR Sarahi I am remotely monitoring this patient from Tele icu station in [place]. I am unable to do the bedside exam, and history/physical and pertinent information is taken from other notes in the computer and bedside staff. Certain portions of this document may have been dictated utilizing voice recognition technology such as [employer]. Inherent to this technology, ty pographical and grammatical errors may exist. As much as I am diligent to identify and correct to these mistakes, some errors may remain in the document. Critical care time devoted to this patient today is approximately is--15 minutes. Sepsis Event Evaluation Height, Weight, BMI Height: '" Weight: lbs. oz. kg; 17.56 BMI Method: Focused Exam Lactate Level 12/02/22 12:11: Lactic Acid Level 1.58 12/02/22 15:05: Lactic Acid Level 0.99 Exam Exam Patient acknowledged, consented, and participated in this virtual visit which was conducted using real time audio/video Vital Signs Date Time Temp Pulse Resp B/P (MAP) Pulse Ox O2 Delivery O2 Flow Rate FiO2 12/05/22 09:00 102 119/66 (83) 96 Nasal Cannula 2.00 12/05/22 08:00 100 131/73 (92) 95 Nasal Cannula 2.00 12/05/22 07:25 96 Nasal Cannula 2.00 12/05/22 07:20 99 12/05/22 07:00 96 136/69 (91) 95 Nasal Cannula 2.00 12/05/22 06:05 107 141/77 (98) 95 Nasal Cannula 2.00 12/05/22 05:00 98 22 137/81 (99) 99 Nasal Cannula 2.00 12/05/22 04:00 87 140/68 (92) 96 Nasal Cannula 2.00 12/05/22 03:20 97 Nasal Cannula 2.00 12/05/22 03:15 37.1 90 20 96 Nasal Cannula 2.00 12/05/22 03:00 93 134/60 (84) 95 Nasal Cannula 2.00 12/05/22 02:12 94 Nasal Cannula 2.00 12/05/22 02:00 37.2 90 23 123/52 (75) 93 Nasal Cannula 2.00 12/05/22 01:00 97 12/05/22 01:00 97 107/57 (74) 91 Nasal Cannula 2.00 12/05/22 00:58 Nasal Cannula 2.00 12/05/22 00:55 22 88 Room Air 12/05/22 00:33 37.7 12/05/22 00:31 101 125/69 (87) 92 Room Air 12/04/22 23:25 93 Room Air 12/04/22 23:24 38.2 12/04/22 23:22 38.2 12/04/22 23:06 104 148/67 (94) 97 Room Air 12/04/22 22:04 96 Room Air 12/04/22 22:00 104 145/65 (91) 94 Room Air 12/04/22 21:00 96 138/82 (100) 98 Room Air 12/04/22 20:00 93 24 143/66 (91) 95 Room Air 12/04/22 19:30 96 Room Air 12/04/22 19:00 96 12/04/22 19:00 37.1 95 21 136/76 (96) 96 Room Air 12/04/22 18:40 97 Room Air 12/04/22 18:00 95 143/72 (85) 98 Room Air 12/04/22 17:00 87 126/72 (89) 96 Room Air 12/04/22 16:00 Room Air 12/04/22 16:00 88 119/60 (77) 97 Room Air 12/04/22 15:00 89 115/61 (70) 97 Room Air 12/04/22 14:52 100 Room Air 12/04/22 14:00 88 113/68 (81) Room Air 12/04/22 13:00 85 122/65 (76) 95 Room Air 12/04/22 12:39 91 12/04/22 12:00 93 123/55 (67) 95 Room Air 12/04/22 11:47 Room Air 12/04/22 11:00 96 115/91 (93) 95 Room Air 12/04/22 10:38 97 Room Air 0.00 I & O 12/05/22 07:00 Intake Total 1075 ml Output Total 1825 ml Balance -750 ml Height & Weight Height: '" Weight: lbs. oz. kg; 17.56 BMI Method: General Appearance: No Apparent Distress, WD/WN, Chronically ill, Cachetic HEENT: PERRL/EOMI; No Scleral Icterus (L), No Scleral Icterus (R) Neck: Normal Inspection, Non Tender; No JVD Respiratory: Lungs Clear, Normal Breath Sounds, No Accessory Muscle Use, No Respiratory Distress Cardiovascular: No Edema, No Gallop, No JVD, No Murmur, Tachycardia Capillary Refill: Less Than 3 Seconds Gastrointestinal: normal bowel sounds, non tender, soft Extremity: Normal Inspection, Non Tender, No Pedal Edema Neurologic/Psychiatric: Alert, Oriented x3, Depressed Affect (but better than when I saw him yesterday) Skin: Normal Color, Warm/Dry Results Lab Laboratory Tests 12/04/22 04:15 12/05/22 03:29 Assessment/Plan Assessment/Plan as above Critical Care: Critically Ill Patient Time spent with patient (mins): 15 CRISS PAULA MD Dec 05, 2022 10:09
[2022-12-05] MEDS ORDERED: ALPR0.254 PO (10:19)
[2022-12-05] MEDS: ACETAMINOPHEN 500 MG TABLET PO PRN ×2 (10:31→23:41)
--- NOTE | 2022-12-05 16:07 | Progress Note - Hospitalist ---
Subjective HPI/CC On Admission Date Seen by Provider: Dec 05, 2022 Time Seen by Provider: 09:50 77M w/ a hx of lung cancer, who was d/c last Monday for a Klebsiella UTI with abx to take for 5 days, which he took, presents after having cough, SOB, and worsening weakness since then. Last night he was bed-bound and so decided to come in. CT shows he has b/l interstitial infiltrates, a small left effusion, and left lower lobe consolidation. He denies N/V, fever, chills, confusion, dizziness. He receives chemotherapy and radiation weekly. He hast not had his chemotherapy the last two Mondays, but did have his radiation last Monday. Subjective/Events-last exam He is hungry. He denies chest pain and shortness of breath. He has no other complaints. Objective Exam Vital Signs Vital Signs Date Time Temp Pulse Resp B/P (MAP) Pulse Ox O2 Delivery O2 Flow Rate FiO2 12/05/22 15:37 95 Nasal Cannula 2.00 12/05/22 15:00 83 95/55 (68) 12/05/22 11:01 37.5 12/05/22 05:00 22 12/03/22 09:32 21 Capillary Refill : Less Than 3 Seconds General Appearance: No Apparent Distress, Chronically ill, Thin Respiratory: No Respiratory Distress, Decreased Breath Sounds Cardiovascular: No Murmur, Tachycardia Gastrointestinal: Normal Bowel Sounds, Soft Extremity: Normal Inspection, No Pedal Edema Neurologic/Psychiatric: Alert, Depressed Affect, Motor Weakness Skin: Normal Color, Warm/Dry Results/Procedures Lab Laboratory Tests 12/05/22 03:29 Patient resulted labs reviewed. 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
[2022-12-05] MEDS: MIRTAZAPINE 15 MG TABLET PO SCH (20:09)
[2022-12-05] MEDS: SODIUM CHLORIDE 1 GM TABLET PO SCH (20:10)
[2022-12-05] MEDS: LIDOCAINE PATCH REMOVAL TP SCH (20:11)
[2022-12-06] MEDS: RT-Ipratropium/Albuterol NEB 3 ML VIAL INH SCH ×5 (02:17→18:55)
[2022-12-06 02:22] LABS: BASOPHILS % (AUTO) 0 % (0-10); EOSINOPHILS % (AUTO) 0 % (0-10); HEMATOCRIT 27 % (40-54); HEMOGLOBIN 9.1 g/dL (13.3-17.7); LYMPHOCYTES # (AUTO) 0.1 10^3/uL (1.0-4.0); LYMPHOCYTES % (AUTO) 3 % (12-44); MEAN CORPUSCULAR HEMOGLOBIN 27 pg (25-34); MEAN CORPUSCULAR HGB CONC 34 g/dL (32-36); MEAN CORPUSCULAR VOLUME 79 fL (80-99); MEAN PLATELET VOLUME 9.1 fL (9.0-12.2); MONOCYTES # (AUTO) 0.1 10^3/uL (0.0-1.0); MONOCYTES % (AUTO) 4 % (0-12); NEUTROPHILS # (AUTO) 2.7 10^3/uL (1.8-7.8); NEUTROPHILS % (AUTO) 92 % (42-75); PLATELET COUNT 300 10^3/uL (130-400); WHITE BLOOD COUNT 2.9 10^3/uL (4.3-11.0)
[2022-12-06 02:33] LABS: ALBUMIN 2.2 GM/DL (3.2-4.5); POTASSIUM 3.7 MMOL/L (3.6-5.0)
[2022-12-06 02:36] LABS: TOTAL PROTEIN 4.8 GM/DL (6.4-8.2)
[2022-12-06 02:38] LABS: BILIRUBIN,TOTAL 0.4 MG/DL (0.1-1.0)
[2022-12-06 02:39] LABS: CREATININE SERUM 0.52 MG/DL (0.60-1.30); PHOSPHORUS 2.6 MG/DL (2.3-4.7)
[2022-12-06 02:42] LABS: MAGNESIUM 1.8 MG/DL (1.6-2.4)
[2022-12-06] MEDS: POTASSIUM CL 10MEQ/50ML IVPB 50 ML IV SCH ×2 (02:44→03:05)
[2022-12-06] MEDS: MAGNESIUM 1 GM/100 ML IVPB 100 ML IV SCH ×2 (02:44→03:05)
[2022-12-06] MEDS: ENOXAPARIN 60 MG/0.6 ML SYRINGE SC SCH (03:05)
[2022-12-06] MEDS ORDERED: NITROGLYCERIN 0.4 MG SL TABLETS BTL 25'S SL PRN (03:45)
[2022-12-06] MEDS: CEFEPIME INJECTION 1,000 MG in NS (IVPB) 50 ML 50 ML IV SCH ×4 (05:01→23:23)
--- NOTE | 2022-12-06 07:07 | Physical Therapy Progress Note ---
Therapy Progress Note Patient transferred to ICU due to A-fib with RVR. PT will require new orders when patient is deemed medically stable and able to safely participate with skilled therapy. BRYNN SELLERS PT Dec 06, 2022 07:07
--- NOTE | 2022-12-06 08:41 | Cardiology Progress Note ---
Subjective Date Seen by Provider: Dec 06, 2022 Time Seen by Provider: 08:40 Subjective/Events-last exam Patient was seen at bedside still having generalized weakness and cough Objective-Cardiology Exam Last Set of Vital Signs Vital Signs 12/03/22 12/06/22 12/06/22 12/06/22 09:32 04:00 07:43 08:00 Temp 36.9 Pulse 105 Resp 16 B/P (MAP) 138/63 (88) Pulse Ox 98 O2 Delivery Nasal Cannula O2 Flow Rate 4.00 FiO2 21 I&O Intake and Output 12/06/22 00:00 Intake Total 675 ml Output Total 1400 ml Balance -725 ml Intake Oral 75 ml IV Total 600 ml Output Urine Total 1400 ml # Urine Diapers 1 # Bowel Movements 1 General: Alert, Oriented X3, Cooperative HEENT: Atraumatic, PERRLA Neck: Supple, No JVD, No Thyromegaly Lungs: Normal Air Movement, Other (Bilateral rhonchi) Heart: Regular Rate, Normal S1, Normal S2, No Murmurs Abdomen: Normal Bowel Sounds, Soft, No Tenderness, No Hepatosplenomegaly, No Masses Extremities: No Clubbing, No Cyanosis, No Edema, Normal Pulses, No Tenderness /Swelling Skin: No Rashes, No Breakdown, No Significant Lesion Neuro: Normal Speech, Normal Tone, Sensation Intact Psych/Mental Status: Mental Status NL, Mood NL Results Lab Laboratory Tests 12/06/22 02:14 A/P-Cardiology Admission Diagnosis Pneumonia Shortness of breath Tachycardia Generalized weakness Assessment/Plan Pneumonia, receiving antibiotics Managed by primary care physician Shortness of breath, cough, secondary to pneumonia Sinus tachycardia, questionable transient atrial fibrillation/flutter Twelve-lead EKG since admission showing sinus tachycardia with occasional APCs. Discontinue amiodarone Change Lovenox to 40 mg daily Continue to monitor rhythm 2D echo was done on December 05, 2022 with mild LVH, ejection fraction 45 to 50%, mild mitral regurgitation mild to moderate tricuspid regurgitation, pulmonary a rtery pressure 45 mmHg Hypertension, monitor blood pressure Generalized weakness secondary to pneumonia. IRWIN PETERS MD Dec 06, 2022 08:41
[2022-12-06] MEDS: meTOprolol TARTRATE (IR) 25 MG TABLET PO SCH ×2 (09:16→20:44)
[2022-12-06] MEDS: SODIUM CHLORIDE 1 GM TABLET PO SCH ×2 (09:16→20:44)
[2022-12-06] MEDS: LIDOCAINE 4% PATCH TOP SCH (09:16)
[2022-12-06] MEDS: ACETAMINOPHEN 500 MG TABLET PO PRN ×2 (09:35→22:28)
--- NOTE | 2022-12-06 11:03 | Physical Therapy Evaluation ---
PT Evaluation-General Medical Diagnosis Admission Date Dec 02, 2022 at 14:08 Medical Diagnosis: pneumonia Onset Date: Dec 02, 2022 Therapy Diagnosis Therapy Diagnosis: generalized weakness/debility Precautions Precautions/Isolations: Standard Precautions Weight Bear Status Right Lower Extremity: Right Full Weight Bearing Left Lower Extremity: Left Full Weight Bearing Referral Physician: Prakash Reason for Referral: Evaluation/Treatment Medical History Additional Medical History lung cancer Current History ER secondary to multiple falls, AMS and SOA/weakness Reviewed History: Yes Social History Home: Apartment Current Living Status: Alone Entry Into Home: Level Entry Prior Prior Level of Function SCALE: Activities may be completed with or without assistive devices. 0-Nxcjyvkanr-lpurcme completes the activity by him/herself with no assistance from a helper. 5-Set-up or Clean-up Assistance-helper sets up or cleans up; patient completes activity. [place] assists only prior to or following the activity. 4-Supervision or Touching Assistance-helper provides verbal cues and/or touching/steadying and/or contact guard assistance as patient completes activity. Assistance may be provided throughout the activity or intermittently. 3-Partial/Moderate Assistance-helper does LESS THAN HALF the effort. [place] lifts, holds or supports trunk or limbs, but provides less than half the effort. 2-Substantial/Maximal Assistance-helper does MORE THAN HALF the effort. [place] lifts or holds trunk or limbs and provides more than half the effort. 3-Dibueayna-kthziw does ALL the effort. Patient does none of the effort to complete the activity. Or, the assistance of 2 or more helpers is required for the patient to complete the activity. If activity was not attempted, code reason: 7-Patient Refused. 9-Not Applicable-not attempted and the patient did not perform the activity before the current illness, exacerbation or injury. 10-Not Attempted due to Environmental Limitations-(lack of equipment, weather restraints, etc.). 88-Not Attempted due to Medical Conditions or Safety Concerns. Bed Mobility: 6 Transfers (B,C,W/C): 6 Gait: 6 Stairs: 6 Indoor Mobility (Ambulation): Independent Stairs: Independent Prior Devices Use: Walker PT Evaluation-Current Subjective Patient agrees to PT. Objective Attachments: Oxygen ROM/Strength ROM Lower Extremities bilateral LE WFL Strength Lower Extremities 3/5 grossly bilateral LE all planes Integumentary/Posture Bowel Incontinence: No Bladder Incontinence: No Posture kyphotic/trunk flexed posture Neuromuscular (Tone, Coordination, Reflexes) diminished coordination due to weakness Sensory Vision: Functional Hearing: Functional Sensation Right Upper Extremit: Intact Sensation Left Upper Extremity: Intact Sensation Right Lower Extremit: Intact Sensation Left Lower Extremity: Intact Transfers Lying to Sitting/Side of Bed(Q: 4 Sit to Stand (QC): 4 Chair/Fuc-ky-Puuuo Xfer(QC): 4 Gait Mode of Locomotion: Walk Anticipated Mode of Locomotion: Walk Walk 10 feet (QC): 4 Walk 50 ft with 2 Turns(QC): 88 Gait Assistive Device: FWW Comments/Gait Description unsteady gait due to weakness Balance Sitting Static: Normal Sitting Dynamic: Normal Standing Static: Fair Standing Dynamic: Fair Assessment/Needs Patient will benefit from skilled PT to address functional strength and mobility to improve current LOF to safely return to home or care facility at maximum LOF. 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 Goals Senior Living Goals PT Senior Living Goals Time Frame: Dec 31, 2022 Sit to Lying (QC): 6 Lying-Sitting on Side/Bed(QC): 6 Sit to Stand (QC): 6 Chair/Gcq-eh-Hajzr Xfer(QC): 6 Toilet Transfer (QC): 6 Does the Patient Walk: Yes Walk 10 feet (QC): 6 Walk 50ft with 2 Turns (QC): 6 Walk 150 ft (QC): 6 PT Plan Problem List Problem List: Activity Tolerance, Functional Strength, Safety, Balance, Gait, Transfer Treatment/Plan Treatment Plan: Continue Plan of Care Treatment Plan: Bed Mobility, Education, Functional Activity Joey, Functional Strength, Gait, Safety, Therapeutic Exercise, Transfers Treatment Duration: Dec 31, 2022 Frequency: 5 times per week Estimated Hrs Per Day: .25 hour per day Patient and/or Family Agrees t: Yes Time Time In: 1030 Time Out: 1044 DATE: Dec 06, 2022 Total Billed Treatment Time: 14 [facility]LL[facility] PT Dec 06, 2022 11:03
--- NOTE | 2022-12-06 11:08 | Occupational Therapy Eval ---
OT Evaluation-General/PLF Medical Diagnosis Admission Date Dec 02, 2022 at 14:08 Medical Diagnosis: pneumonia Onset Date: Dec 02, 2022 Therapy Diagnosis Therapy Diagnosis: debility, weakness Precautions Precautions/Isolations: Standard Precautions Weight Bear Status Weight Bearing Restriction: Weight Bearing/Tolerated Referral Physician: [facility] Referral Reason: Activity Tolerance, Self Care, Evaluation/Treatment, Strengthening/ROM Medical History Additional Medical History 77M w/ a hx of lung cancer, who was d/c last Monday for a Klebsiella UTI with abx to take for 5 days, which he took, presents after having cough, SOB, and worsening weakness since then. Last night he was bed-bound and so decided to come in. CT shows he has b/l interstitial infiltrates, a small left effusion, and left lower lobe consolidation. He denies N/V, fever, chills, confusion, dizziness. He receives chemotherapy and radiation weekly. He hast not had his chemotherapy the last two Mondays, but did have his radiation last Monday. Social History Home: Apartment Current Living Status: Alone ADL-Prior Level of Function SCALE: Activities may be completed with or without assistive devices. 4-Vgqtrrppcq-emhzztn completes the activity by him/herself with no assistance from a helper. 5-Set-up or Clean-up Assistance-helper sets up or cleans up; patient completes activity. [place] assists only prior to or following the activity. 4-Supervision or Touching Assistance-helper provides verbal cues and/or touching/steadying and/or contact guard assistance as patient completes activity. Assistance may be provided throughout the activity or intermittently. 3-Partial/Moderate Assistance-helper does LESS THAN HALF the effort. [place] lifts, holds or supports trunk or limbs, but provides less than half the effort. 2-Substantial/Maximal Assistance-helper does MORE THAN HALF the effort. [place] lifts or holds trunk or limbs and provides more than half the effort. 3-Bhvtsndzj-eifzja does ALL the effort. Patient does none of the effort to complete the activity. Or, the assistance of 2 or more helpers is required for the patient to complete the activity. If activity was not attempted, code reason: 7-Patient Refused. 9-Not Applicable-not attempted and the patient did not perform the activity before the current illness, exacerbation or injury. 10-Not Attempted due to Environmental Limitations-(lack of equipment, weather restraints, etc.). 88-Not Attempted due to Medical Conditions or Safety Concerns. Self Care: Independent Functional Cognition: Independent Drive Self: Yes OT Current Status Subjective Agreeable to therapy Pain Numeric Pain Scale: 0-No Pain Mental Status/Objective Patient Orientation: Person, Place, Situation Attachments: IV, PEG Tube, SCD's, Telemetry Current Upper Extremity ROM WNL Upper Extremity Coordination FAIR+ Upper Extremity Sensation INTACT Upper Extremity Strength 3/5 VERY WEAK, SOA WITH MINIMAL ACTIVITY ADL-Treatment Eating (QC): 7 Oral Hygiene (QC): 5 Shower/Bathe Self (QC): 7 Upper Body Dressing (QC): 3 Lower Body Dressing (QC): 3 On/Off Footwear (QC): 3 Toileting Hygiene (QC): 3 USES URINAL W/ ASSISTANCE, DONS LEFT SOCK HOWEVER ASSISTANCE REQUIRED FOR RIGHT Education OT Patient Education: Correct positioning, Exercise program, Modified ADL techniques, Progress toward Goal/Update tx plan, Purpose of tx/functional activities, Reviewed precautions, Rehab process, Safety issues, Transfer techniques, Use of adapted equipment Teaching Recipient: Patient Teaching Methods: Demonstration, Discussion Response to Teaching: Verbalize Understanding, Reinforcement Needed OT [facility] Goals [facility]ci Goals Eating (QC): 6 Oral Hygiene (QC): 6 Toileting Hygiene (QC): 6 Shower/Bathe Self (QC): 6 Upper Body Dressing (QC): 6 Lower Body Dressing (QC): 6 On/Off Footwear (QC): 6 1=Demonstrate adherence to instructed precautions during ADL tasks. 2=Patient will verbalize/demonstrate understanding of assistive devices/modifications for ADL. 3=Patient will improve strength/tolerance for activity to enable patient to perform ADL's. OT Education/Plan Problem List/Assessment Assessment: Decreased Activ Tolerance, Decreased UE Strength, Impaired Bed Mobility, Impaired Cognition, Impaired Funct Balance, Impaired Self-Care Skills Discharge Recommendations Plan/Recommendations: Continue POC Therapy Discharge Recommendati: Post Acute OT Treatment Plan/Plan of Care Treatment,Training & Education: Yes Patient would benefit from OT for education, treatment and training to promote independence in ADL's, mobility, safety and/or upper extremity function for ADL's. Plan of Care: ADL Retraining, Concurrent Therapy, Functional Mobility, Group Exercise/Act as Ind, UE Funct Exercise/Act Treatment Duration: Dec 13, 2022 Frequency: 3 times per week (3-5 TIMES PER WEEK) Estimated Hrs Per Day: .25 hour per day Rehab Potential: Guarded Time Start Time: 10:45 Stop Time: 11:00 DATE: Dec 06, 2022 Total Time Billed (hr/min): 15 Billed Treatment Time [facility] 15 MIN LENNY HAMILTON OT Dec 06, 2022 11:08
--- NOTE | 2022-12-06 11:32 | Diagnostic Imaging Report ---
EXAMINATION: Chest 1 view HISTORY: Fever and shortness of breath. COMPARISON: 12/02/2022 FINDINGS: There is severe bilateral airspace opacities. No pneumothorax. Heart size is normal. No significant change from prior exam. Right port catheter tip terminates in the superior vena cava. IMPRESSION: 1. No significant change in severe bilateral airspace opacities likely representing pneumonia. Dictated by: Dictated on workstation # [id number]
--- NOTE | 2022-12-06 13:11 | Tele-ICU Progress Note ---
Subjective Date Seen by a Provider: Dec 06, 2022 Time Seen by a Provider: 13:11 Subjective/Events-last exam (Tele-ICU Physician , Progress Note ) Service provided via interactive audio and video telecommunications E-CARE system to a patient admitted to ICU bed in [facility]. Patient is seen today due to persistent need of ICU care Available chart/ vitals / labs / Images reviewed Video assessment done using teleICU camera, rest of exam as per RN Discussed with RN Events overnight : Afebrile hemodynamically stable Respiratory - 2L - RA I/O = neg Drips: Pressors- no Hospital course: (12/02) 77M admitted for pneumonia and recent Klebsiella UTI-recently finished antibiotics. Lung cancer w/chemo and radiation but no treatments this week. CTA NEG for PE but worsening infiltrates. On room air-neg severe/shock (12/03) TX to ICU for rapid afib (12/05) Increasing O2 needs-mild. 11/26, 2 L o2 , lovenox -> to proph dose 11/26 A/P Atrial fibrillation with rapid ventricular rate currently converted to normal sinus rhythm -as per cards Discontinue amiodarone - AC with lovenox -> to proph dose 11/26 Multifoical PNA - cont IV abx - repeat cxr tomorrow Advanced lung cancer status post chemoradiation therapy - Underlying pulmonary fibrosis ECHO December 05, 2022 withEF 45 to 50%, mild to moderate TR, RVSP 45 mmHg Lines : periph - [place] - acsessed , (Central Line Necessity Reviewed) Verduzco: void OG: Nutrition: Analgesia: Anxiety/ delirium VTE Prophylaxis: natali Stress Ulcer Prophylaxis: na Plans in collaboration with bedside consultants and IM MDs. Discussed with RN to reach out if any questions or concerns Case and care daily discussed on multidisciplinary rounds ( RN, PharmD, Consulting Marine Engineer , Respiratory Therapy, horticultural worker ) A total of 22 minutes of critical care time was devoted to this patient today, required to treat and/or prevent further deterioration of critical care condition ( as above ) . I am remotely monitoring this patient from another state. I am unable to do the bedside exam, and history/physical and pertinent information is taken from other notes in the computer and bedside staff. Sepsis Event Evaluation Height, Weight, BMI Height: '" Weight: lbs. oz. kg; 17.78 BMI Method: Exam Exam Patient acknowledged, consented, and participated in this virtual visit which was conducted using real time audio/video Vital Signs Date Time Temp Pulse Resp B/P (MAP) Pulse Ox O2 Delivery O2 Flow Rate FiO2 12/06/22 12:15 91 12/06/22 12:00 88 97/54 (68) 97 Room Air 12/06/22 11:58 37.8 12/06/22 11:00 106 100 Room Air 12/06/22 10:38 Room Air 12/06/22 10:27 95 Nasal Cannula 4.00 12/06/22 10:05 38.0 12/06/22 10:00 106 125/63 (83) 97 Nasal Cannula 4.00 12/06/22 09:35 38.4 12/06/22 09:00 106 127/58 (81) 98 Nasal Cannula 4.00 12/06/22 08:30 108 12/06/22 08:00 105 138/63 (88) 98 Nasal Cannula 4.00 12/06/22 07:57 107 12/06/22 07:43 36.9 12/06/22 07:04 99 Nasal Cannula 4.00 12/06/22 07:00 99 150/72 (98) 98 Nasal Cannula 4.00 12/06/22 06:00 97 153/64 (93) 96 Nasal Cannula 4.00 12/06/22 05:00 89 138/75 (96) 99 Nasal Cannula 4.00 12/06/22 04:00 100 Nasal Cannula 2.00 12/06/22 04:00 36.5 87 16 106/42 (63) 100 Nasal Cannula 2.00 12/06/22 03:00 89 97/51 (66) 99 Nasal Cannula 4.00 12/06/22 02:18 96 Nasal Cannula 4.00 12/06/22 02:10 37.1 Nasal Cannula 4.00 12/06/22 02:00 89 105/51 (69) 93 OxyMask 4.00 12/06/22 01:00 101 12/06/22 01:00 101 123/58 (79) 96 OxyMask 4.00 12/06/22 00:42 OxyMask 4.00 12/06/22 00:18 93 OxyMask 6.00 12/06/22 00:17 OxyMask 6.00 12/06/22 00:11 38.0 12/06/22 00:00 113 132/59 (83) 97 Nasal Cannula 4.00 12/05/22 23:47 Nasal Cannula 4.00 12/05/22 23:41 38.0 12/05/22 23:35 92 Nasal Cannula 3.00 12/05/22 23:35 38.0 Nasal Cannula 3.00 12/05/22 23:00 105 108/71 (83) 95 Nasal Cannula 2.00 12/05/22 22:53 99 Nasal Cannula 2.00 12/05/22 22:00 98 21 131/55 (80) 93 Nasal Cannula 2.00 12/05/22 21:00 108 20 130/56 (80) 95 Nasal Cannula 2.00 12/05/22 20:00 106 22 120/48 (72) 96 Nasal Cannula 2.00 12/05/22 19:15 92 Nasal Cannula 2.00 12/05/22 19:00 37.5 Nasal Cannula 2.00 12/05/22 19:00 110 12/05/22 19:00 105 20 142/54 (83) 94 Nasal Cannula 2.00 12/05/22 18:22 100 Nasal Cannula 2.00 12/05/22 18:00 90 162/68 (99) 95 Nasal Cannula 2.00 12/05/22 17:00 88 113/47 (69) 94 Nasal Cannula 2.00 12/05/22 16:00 82 105/44 (64) 95 Nasal Cannula 2.00 12/05/22 15:37 95 Nasal Cannula 2.00 12/05/22 15:00 83 95/55 (68) 96 Nasal Cannula 2.00 12/05/22 14:00 89 107/49 (68) 91 Nasal Cannula 2.00 I & O 12/06/22 06:59 Intake Total 650 ml Output Total 1200 ml Balance -550 ml Height & Weight Height: '" Weight: lbs. oz. kg; 17.78 BMI Method: General Appearance: No Apparent Distress, Chronically ill, Thin HEENT: PERRL/EOMI; No Scleral Icterus (L), No Scleral Icterus (R) Neck: Normal Inspection, Non Tender; No JVD Respiratory: No Respiratory Distress, Decreased Breath Sounds Cardiovascular: No Murmur, Tachycardia Capillary Refill: Less Than 3 Seconds Gastrointestinal: normal bowel sounds, non tender, soft Extremity: Normal Inspection, No Pedal Edema Neurologic/Psychiatric: Alert, Depressed Affect, Motor Weakness Skin: Normal Color, Warm/Dry Results Lab Laboratory Tests 12/05/22 03:29 12/06/22 02:14 Assessment/Plan Assessment/Plan 1 SHALOM FLETCHER MD Dec 06, 2022 13:11
--- NOTE | 2022-12-06 15:55 | Progress Note - Hospitalist ---
Subjective HPI/CC On Admission Date Seen by Provider: Dec 06, 2022 Time Seen by Provider: 09:40 77M w/ a hx of lung cancer, who was d/c last Monday for a Klebsiella UTI with abx to take for 5 days, which he took, presents after having cough, SOB, and worsening weakness since then. Last night he was bed-bound and so decided to come in. CT shows he has b/l interstitial infiltrates, a small left effusion, and left lower lobe consolidation. He denies N/V, fever, chills, confusion, dizziness. He receives chemotherapy and radiation weekly. He hast not had his chemotherapy the last two Mondays, but did have his radiation last Monday. Subjective/Events-last exam He is still not feeling well. He is not short of breath. He denies pain. Objective Exam Vital Signs Vital Signs Date Time Temp Pulse Resp B/P (MAP) Pulse Ox O2 Delivery O2 Flow Rate FiO2 12/06/22 15:00 110 119/54 (75) 96 Room Air 12/06/22 14:34 2.00 12/06/22 11:58 37.8 12/06/22 04:00 16 12/03/22 09:32 21 Capillary Refill : Less Than 3 Seconds General Appearance: No Apparent Distress, Chronically ill Respiratory: No Respiratory Distress, Crackles, Decreased Breath Sounds Cardiovascular: No Murmur, Tachycardia Gastrointestinal: Normal Bowel Sounds, Soft Extremity: Normal Inspection, No Pedal Edema Neurologic/Psychiatric: Alert, Depressed Affect, Motor Weakness Results/Procedures Lab Laboratory Tests 12/06/22 02:14 Patient resulted labs reviewed. 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
[2022-12-06 17:37] VITALS: BP 121/61
[2022-12-06] MEDS: MIRTAZAPINE 15 MG TABLET PO SCH (20:44)
[2022-12-06] MEDS: LIDOCAINE PATCH REMOVAL TP SCH (20:44)
[2022-12-07 02:09] LABS: BASOPHILS % (AUTO) 0 % (0-10); EOSINOPHILS % (AUTO) 1 % (0-10); HEMATOCRIT 28 % (40-54); HEMOGLOBIN 9.6 g/dL (13.3-17.7); LYMPHOCYTES # (AUTO) 0.1 10^3/uL (1.0-4.0); LYMPHOCYTES % (AUTO) 3 % (12-44); MEAN CORPUSCULAR HEMOGLOBIN 27 pg (25-34); MEAN CORPUSCULAR HGB CONC 34 g/dL (32-36); MEAN CORPUSCULAR VOLUME 79 fL (80-99); MEAN PLATELET VOLUME 9.4 fL (9.0-12.2); MONOCYTES # (AUTO) 0.1 10^3/uL (0.0-1.0); MONOCYTES % (AUTO) 3 % (0-12); NEUTROPHILS # (AUTO) 2.8 10^3/uL (1.8-7.8); NEUTROPHILS % (AUTO) 93 % (42-75); PLATELET COUNT 340 10^3/uL (130-400)
[2022-12-07 02:21] LABS: POTASSIUM 3.7 MMOL/L (3.6-5.0)
[2022-12-07 02:22] LABS: CALCIUM 8.3 MG/DL (8.5-10.1)
[2022-12-07 02:23] LABS: TOTAL PROTEIN 5.1 GM/DL (6.4-8.2)
[2022-12-07 02:25] LABS: BILIRUBIN,TOTAL 0.5 MG/DL (0.1-1.0)
[2022-12-07 02:26] LABS: PHOSPHORUS 2.8 MG/DL (2.3-4.7)
[2022-12-07 02:27] LABS: CREATININE SERUM 0.47 MG/DL (0.60-1.30)
[2022-12-07 02:30] LABS: MAGNESIUM 1.9 MG/DL (1.6-2.4)
[2022-12-07 02:35] LABS: ALBUMIN 2.3 GM/DL (3.2-4.5)
[2022-12-07] MEDS: MAGNESIUM 1 GM/100 ML IVPB 100 ML IV SCH ×2 (02:40→03:03)
[2022-12-07] MEDS: POTASSIUM CL 10MEQ/50ML IVPB 50 ML IV SCH ×2 (02:40→03:03)
[2022-12-07] MEDS: CEFEPIME INJECTION 1,000 MG in NS (IVPB) 50 ML 50 ML IV SCH ×2 (04:55→11:09)
[2022-12-07] MEDS: ACETAMINOPHEN 500 MG TABLET PO PRN (06:29)
[2022-12-07] MEDS ORDERED: dilTIAZem IV FOR DRIP 125 MG in NS (IVPB) 100 ML 100 ML IV SCH (08:15)
[2022-12-07] MEDS: meTOprolol TARTRATE (IR) 50 MG TABLET PO SCH ×2 (08:19→20:56)
[2022-12-07] MEDS: LIDOCAINE 4% PATCH TOP SCH (08:19)
[2022-12-07] MEDS: dilTIAZem DRIP 125 MG/125 ML DRIP IV SCH (08:22)
--- NOTE | 2022-12-07 08:51 | Cardiology Progress Note ---
Subjective Date Seen by Provider: Dec 07, 2022 Time Seen by Provider: 08:50 Subjective/Events-last exam Patient was seen at bedside complaining of generalized fatigue and loss of energy. No chest pain Objective-Cardiology Exam Last Set of Vital Signs Vital Signs 12/06/22 12/06/22 12/07/22 12/07/22 12/07/22 17:37 19:00 06:00 07:55 08:22 Temp 37.3 Pulse 147 Resp 15 B/P (MAP) 149/59 Pulse Ox 100 O2 Delivery Nasal Cannula O2 Flow Rate 2.00 FiO2 21 I&O Intake and Output 12/07/22 00:00 Intake Total 1130 ml Output Total 1350 ml Balance -220 ml Intake Oral 680 ml IV Total 450 ml Output Urine Total 1350 ml General: Alert, Oriented X3, Cooperative HEENT: Atraumatic, PERRLA Neck: Supple, No JVD, No Thyromegaly Lungs: Normal Air Movement, Other (Bilateral rhonchi) Heart: Normal S1, Normal S2, No Murmurs, Other (Atrial fibrillation) Abdomen: Normal Bowel Sounds, Soft, No Tenderness, No Hepatosplenomegaly, No Masses Extremities: No Clubbing, No Cyanosis, No Edema, Normal Pulses, No Tenderness/Swelling Skin: No Rashes, No Breakdown, No Significant Lesion Neuro: Normal Speech, Normal Tone, Sensation Intact Psych/Mental Status: Mental Status NL, Mood NL Results Lab Laboratory Tests 12/07/22 02:00 A/P-Cardiology Admission Diagnosis Pneumonia Shortness of breath Tachycardia Generalized weakness Assessment/Plan Pneumonia, receiving antibiotics Managed by primary care physician Shortness of breath, cough, secondary to pneumonia Atrial fibrillation with rapid ventricular response, patient had transient atrial fibrillation on admission then had another episode of atrial fibrillation with rapid ventricular response on December 07, 2022 I will start him on Eliquis 5 mg twice daily Started on Cardizem drip and titrating, planning for cardioversion if he did not convert on his own. 2D echo was done on December 05, 2022 with mild LVH, ejection fraction 45 to 50%, mild mitral regurgitation mild to moderate tricuspid regurgitation, pulmonary artery pressure 45 mmHg Hypertension, monitor blood pressure Generalized weakness secondary to pneumonia. IRWIN PETERS MD Dec 07, 2022 08:51
[2022-12-07] MEDS ORDERED: ENOXAPARIN 30 MG/0.3 ML SYRINGE SC SCH (09:00)
--- NOTE | 2022-12-07 09:26 | Physical Therapy Daily Note ---
PT Daily Note-Current Subjective Patient lying supine in bed upon PT arrival, agreeable to treatment. Patient rates pain at 0/10 currently. Pain Section J - Health Conditions 1. Rarely or not at all 2. Occasionally 3. Frequently 4. Almost constantly 8. Unable to answer Pain Effect on Sleep: 1 Pain Interference with Therapy: 1 Pain Interference w/Day-to-Day: 1 Transfers SCALE: Activities may be completed with or without assistive devices. 3-Qeinspzzdw-oeqgtqk completes the activity by him/herself with no assistance from a helper. 5-Set-up or Clean-up Assistance-helper sets up or cleans up; patient completes activity. [place] assists only prior to or following the activity. 4-Supervision or Touching Assistance-helper provides verbal cues and/or touching/steadying and/or contact guard assistance as patient completes activity. Assistance may be provided throughout the activity or intermittently. 3-Partial/Moderate Assistance-helper does LESS THAN HALF the effort. [place] lif ts, holds or supports trunk or limbs, but provides less than half the effort. 2-Substantial/Maximal Assistance-helper does MORE THAN HALF the effort. [place] lifts or holds trunk or limbs and provides more than half the effort. 4-Mgumpiwre-fephes does ALL the effort. Patient does none of the effort to complete the activity. Or, the assistance of 2 or more helpers is required for the patient to complete the activity. If activity was not attempted, code reason: 7-Patient Refused. 9-Not Applicable-not attempted and the patient did not perform the activity before the current illness, exacerbation or injury. 10-Not Attempted due to Environmental Limitations-(lack of equipment, weather restraints, etc.). 88-Not Attempted due to Medical Conditions or Safety Concerns. Roll Left & Right (QC): 4 Sit to Lying (QC): 4 Lying to Sitting/Side of Bed(Q: 4 Sit to Stand (QC): 3 Chair/Uva-xe-Ypgad Xfer(QC): 3 Weight Bearing Right Lower Extremity: Right Full Weight Bearing Left Lower Extremity: Left Full Weight Bearing Gait Training Does the Patient Walk?: Yes Distance: 4' Gait Persons Needed: 1 Gait Assistive Device: FWW Assessment Current Status: Poor Progress Patient tolerated treatment poorly. He performs all bed mobility with SBA, requires min A for sit to stand and bed to chair. O2 sats declined to 87% with transfer. Patient in chair post treatment with all needs met, nursing notified, call light in reach, friend in room and breakfast delivered. PT Custodial Goals Custodial Goals PT Plate Maker Zinc Goals Time Frame: Dec 31, 2022 Sit to Lying (QC): 6 Lying-Sitting on Side/Bed(QC): 6 Sit to Stand (QC): 6 Chair/Gdx-qn-Wklte Xfer(QC): 6 Toilet Transfer (QC): 6 Does the Patient Walk: Yes Walk 10 feet (QC): 6 Walk 50ft with 2 Turns (QC): 6 Walk 150 ft (QC): 6 PT Plan Treatment/Plan Treatment Plan: Continue Plan of Care Treatment Plan: Bed Mobility, Education, Functional Activity Joey, Functional Strength, Gait, Safety, Therapeutic Exercise, Transfers Treatment Duration: Dec 31, 2022 Frequency: 5 times per week Estimated Hrs Per Day: .25 hour per day Patient and/or Family Agrees t: Yes Safety Risks/Education Patient Education: Gait Training, Transfer Techniques Teaching Recipient: Patient Teaching Methods: Demonstration, Discussion Response to Teaching: Reinforcement Needed Time Time In: 840 Time Out: 850 DATE: Dec 07, 2022 Total Billed Treatment Time: 10 Total Billed Treatment Visit, KYLEE ENGLE PT Dec 07, 2022 09:26
[2022-12-07] MEDS: RT-Ipratropium/Albuterol NEB 3 ML VIAL INH SCH ×4 (09:27→18:45)
[2022-12-07] MEDS: SODIUM CHLORIDE 1 GM TABLET PO SCH ×2 (09:45→20:21)
[2022-12-07] MEDS ORDERED: MIDAZOLAM INJ 5 MG/5 ML VIAL ONE (10:11)
--- NOTE | 2022-12-07 10:35 | Anesthesia-General Post-Op ---
MAC Patient Condition Mental Status/LOC: Same as Preop Cardiovascular: Satisfactory Nausea/Vomiting: Absent Respiratory: Satisfactory Pain: Controlled Complications: Absent Post Op Complications Complications None Follow Up Care/Instructions Patient Instructions None needed. Anesthesiology Discharge Order Discharge Order Patient is awake and in Sinus Rhythm. His BP is slightly improved. He has no complaints, stable vital signs, no apparent adverse anesthesia problems. No complications reported per nursing. AUGIE COY DO Dec 07, 2022 10:35
[2022-12-07] MEDS ORDERED: KETAMINE 50 MG/5 ML SYRINGE ONE (10:42)
--- NOTE | 2022-12-07 11:18 | Cardioversion ---
Cardioversion PROCEDURE PHYSICIAN: Irwin Vogt DATE OF PROCEDURE: 12/07/22 DIRECT EXTERNAL ELECTRICAL CARDIOVERSION: Indications: Atrial Fibrillation with rapid ventricular rate Preoperative diagnoses: Atrial Fibrillation with rapid ventricular rate Postoperative diagnosis: Sinus rhythm, Successful Electrical Cardioversion History: 77-year-old gentleman admitted with pneumonia and sepsis, had atrial fibrillation with rapid ventricular response, I started him on Cardizem drip, patient became hypotensive. Has been lethargic. Anesthesia were called and we decided to proceed with urgent cardioversion Anesthesia: By Anesthesia services Complications: None Specimen: None Contrast: 0 Flouroscopy: none Procedure Details: The patient was brought the director geophysical laboratory after informed consent was taken, all the risks and complications were explained including the risk of stroke. Electrical cardioversion was carried out with anesthesia support with ketamine. 120 joules of synchronized shock was delivered through external patches which promptly restored sinus rhythm. The patient tolerated the procedure well. Conclusions: Successful electrical cardioversion in terminating atrial fibrillation IRWIN VOGT MD Dec 07, 2022 11:18
--- NOTE | 2022-12-07 11:57 | Tele-ICU Progress Note ---
Subjective Date Seen by a Provider: Dec 07, 2022 Time Seen by a Provider: 11:56 Subjective/Events-last exam (Tele-ICU Physician , Progress Note ) Service provided via interactive audio and video telecommunAttunity E-CARE system to a patient admitted to ICU bed in [facility]. Patient is seen today due to persistent need of ICU care Available chart/ vitals / labs / Images reviewed Video assessment done using teleICU camera, rest of exam as per RN Discussed with RN Events overnight : Afebrile hemodynamically stable Respiratory - 2L - RA I/O = neg Drips: Pressors- no Hospital course: (12/02) 77M admitted for pneumonia and recent Klebsiella UTI-recently finished antibiotics. Lung cancer w/chemo and radiation but no treatments this week. CTA NEG for PE but worsening infiltrates. On room air-neg severe/shock (12/03) TX to ICU for rapid afib (12/05) Increasing O2 needs-mild. 12/06, 2 L o2 , lovenox -> to proph dose 11/26 12/07 - RVR - cardizem gtt started --> low BP --> cardioversion A/P Atrial fibrillation with rapid ventricular rate currently converted to normal sinus rhythm -as per cards Discontinue amiodarone, but on 12/07 - RVR - cardizem gtt started --> low BP --> cardioversion , on ELiquis 12/07 - AC with lovenox -> to proph dose 11/26 - on ELiquis 12/07 Multifoical PNA - cont IV abx - repeat cxr tomorrow Advanced lung cancer status post chemoradiation therapy - Underlying pulmonary fibrosis ECHO December 05, 2022 withEF 45 to 50%, mild to moderate TR, RVSP 45 mmHg PT, ? nutritional consult Lines : periph - [place] - acsessed , (Central Line Necessity Reviewed) Verduzco: void OG: Nutrition: po Analgesia: Anxiety/ delirium VTE Prophylaxis: on ELiquis 12/07 Stress Ulcer Prophylaxis: na Plans in collaboration with bedside consultants and IM MDs. Discussed with RN to reach out if any questions or concerns Case and care daily discussed on multidisciplinary rounds ( RN, PharmD, Fish Butcher , Respiratory Therapy, galley worker ) A total of 22 minutes of critical care time was devoted to this patient today, required to treat and/or prevent further deterioration of critical care condition ( as above ) . I am remotely monitoring this patient from another state. I am unable to do the bedside exam, and history/physical and pertinent information is taken from other notes in the computer and bedside staff. Sepsis Event Evaluation Height, Weight, BMI Height: '" Weight: lbs. oz. kg; 18.14 BMI Method: Exam Exam Patient acknowledged, consented, and participated in this virtual visit which was conducted using real time audio/video Vital Signs Date Time Temp Pulse Resp B/P (MAP) Pulse Ox O2 Delivery O2 Flow Rate FiO2 12/07/22 11:45 82 91/49 (63) 97 Nasal Cannula 2.00 12/07/22 11:24 36.8 12/07/22 10:17 88 12/07/22 10:00 138 114/60 (78) 86 Nasal Cannula 2.00 12/07/22 09:00 142 62/47 (52) 97 Nasal Cannula 2.00 12/07/22 08:28 146 12/07/22 08:27 100 Nasal Cannula 2.00 12/07/22 08:22 147 149/59 12/07/22 08:00 105 149/59 (89) 99 Nasal Cannula 2.00 12/07/22 07:55 37.3 12/07/22 07:33 37.3 12/07/22 07:00 117 12/07/22 07:00 111 126/65 (85) 98 Nasal Cannula 2.00 12/07/22 06:29 37.5 12/07/22 06:00 110 152/77 (102) 100 Nasal Cannula 2.00 12/07/22 05:00 98 140/103 (115) 99 Nasal Cannula 2.00 12/07/22 04:00 101 131/63 (85) 94 Nasal Cannula 2.00 12/07/22 03:35 100 Nasal Cannula 2.00 12/07/22 03:33 36.2 12/07/22 03:00 90 125/64 (84) 97 Nasal Cannula 2.00 12/07/22 02:00 88 122/57 (78) 96 Nasal Cannula 2.00 12/07/22 01:00 85 12/07/22 01:00 86 108/51 (70) 96 Nasal Cannula 2.00 12/07/22 00:00 93 124/55 (78) 93 Nasal Cannula 2.00 12/06/22 23:40 37.2 12/06/22 23:22 37.7 12/06/22 23:20 92 Nasal Cannula 2.00 12/06/22 23:12 37.8 12/06/22 23:00 98 127/62 (83) 91 Nasal Cannula 2.00 12/06/22 22:28 38.0 12/06/22 22:24 38.0 90 Nasal Cannula 2.00 12/06/22 22:00 94 122/74 (90) 93 Nasal Cannula 2.00 12/06/22 21:00 101 129/59 (82) 92 Nasal Cannula 2.00 12/06/22 20:00 100 116/65 (82) 92 Nasal Cannula 2.00 12/06/22 19:30 93 Nasal Cannula 2.00 12/06/22 19:00 102 12/06/22 19:00 37.5 102 15 128/68 (88) 93 Nasal Cannula 2.00 12/06/22 18:55 95 Nasal Cannula 2.00 12/06/22 18:00 98 135/77 (96) 95 Room Air 12/06/22 17:37 36.9 92 96 21 12/06/22 17:00 92 121/61 (81) 96 Room Air 12/06/22 16:34 36.9 12/06/22 16:00 94 116/46 (69) 94 Room Air 12/06/22 16:00 100 Nasal Cannula 2.00 12/06/22 15:00 110 119/54 (75) 96 Room Air 12/06/22 14:34 97 Nasal Cannula 2.00 12/06/22 14:00 89 94/65 (75) 95 Room Air 12/06/22 13:15 91 99/50 (66) 100 Room Air 12/06/22 12:15 91 12/06/22 12:00 100 Nasal Cannula 2.00 12/06/22 12:00 88 97/54 (68) 97 Room Air 12/06/22 11:58 37.8 I & O 12/07/22 07:00 Intake Total 1230 ml Output Total 1400 ml Balance -170 ml Height & Weight Height: '" Weight: lbs. oz. kg; 18.14 BMI Method: General Appearance: No Apparent Distress, Chronically ill HEENT: PERRL/EOMI; No Scleral Icterus (L), No Scleral Icterus (R) Neck: Normal Inspection, Non Tender; No JVD Respiratory: No Respiratory Distress, Crackles, Decreased Breath Sounds Cardiovascular: No Murmur, Tachycardia Capillary Refill: Less Than 3 Seconds Gastrointestinal: normal bowel sounds, non tender, soft Extremity: Normal Inspection, No Pedal Edema Neurologic/Psychiatric: Alert, Depressed Affect, Motor Weakness Skin: Normal Color, Warm/Dry Results Lab Laboratory Tests 12/06/22 02:14 12/07/22 02:00 Assessment/Plan Assessment/Plan 1 SHALOM FLETCHER MD Dec 07, 2022 11:57
[2022-12-07] MEDS: DRONEDARONE 400 MG TABLET PO SCH ×2 (12:57→20:21)
--- NOTE | 2022-12-07 14:12 | Occupational Ther Daily Note ---
OT Current Status-Daily Note Subjective UP IN RECLINER AGREEABLE TO PARTICIPATE. Pain Numeric Pain Scale: 4 Location Body Site: Generalized Mental Status/Objective Patient Orientation: Person, Place, Time, Situation ADL-Treatment PERFORMED ORAL. FACE AND HAIR GROOMING TASKS. ENCOURAGED TO SIT UPRIGHT IN RECLINER W/ BACK UNSUPPORTED TO INCREASE STRENGTH AND TOLERANCE Therapy Code Descriptions/Definitions Functional [place] Measure: 0=Not Assessed/NA 4=Minimal Assistance 1=Total Assistance 5=Supervision or Setup 2=Maximal Assistance 6=Modified [place] 3=Moderate Assistance 7=Complete IndependenceSCALE: Activities may be completed with or without assistive devices. 4-Ycbqynuqtx-ailhxcz completes the activity by him/herself with no assistance from a helper. 5-Set-up or Clean-up Assistance-helper sets up or cleans up; patient completes activity. [place] assists only prior to or following the activity. 4-Supervision or Touching Assistance-helper provides verbal cues and/or touching/steadying and/or contact guard assistance as patient completes activity. Assistance may be provided throughout the activity or intermittently. 3-Partial/Moderate Assistance-helper does LESS THAN HALF the effort. [place] lifts, holds or supports trunk or limbs, but provides less than half the effort. 2-Substantial/Maximal Assistance-helper does MORE THAN HALF the effort. [place] lifts or holds trunk or limbs and provides more than half the effort. 0-Encxexcus-myxamm does ALL the effort. Patient does none of the effort to complete the activity. Or, the assistance of 2 or more helpers is required for the patient to complete the activity. If activity was not attempted, code reason: 7-Patient Refused. 9-Not Applicable-not attempted and the patient did not perform the activity before the current illness, exacerbation or injury. 10-Not Attempted due to Environmental Limitations-(lack of equipment, weather restraints, etc.). 88-Not Attempted due to Medical Conditions or Safety Concerns. Other Treatment CORE SITTING W/ DYNAMIC REACHING TASKS BALANCE FAIR Education OT Patient Education: Correct positioning, Exercise program, Modified ADL techniques, Progress toward Goal/Update tx plan, Purpose of tx/functional activ ities, Reviewed precautions, Rehab process, Safety issues Teaching Recipient: Patient Teaching Methods: Demonstration, Discussion Response to Teaching: Reinforcement Needed OT Retirement Goals Retirement Goals Eating (QC): 6 Oral Hygiene (QC): 6 Toileting Hygiene (QC): 6 Shower/Bathe Self (QC): 6 Upper Body Dressing (QC): 6 Lower Body Dressing (QC): 6 On/Off Footwear (QC): 6 1=Demonstrate adherence to instructed precautions during ADL tasks. 2=Patient will verbalize/demonstrate understanding of assistive devices/modifica tions for ADL. 3=Patient will improve strength/tolerance for activity to enable patient to perform ADL's. OT Education/Plan Problem List/Assessment Assessment: Decreased Activ Tolerance, Decreased Safety Aware, Decreased UE Strength, Impaired Self-Care Skills Discharge Recommendations Plan/Recommendations: Continue POC Therapy Discharge Recommendati: Post Acute OT Treatment Plan/Plan of Care Patient would benefit from OT for education, treatment and training to promote independence in ADL's, mobility, safety and/or upper extremity function for ADL's. Plan of Care: ADL Retraining, Concurrent Therapy, Functional Mobility, Group Exercise/Act as Ind, UE Funct Exercise/Act Treatment Duration: Dec 13, 2022 Frequency: 3 times per week (3-5 TIMES PER WEEK) Estimated Hrs Per Day: .25 hour per day Rehab Potential: Guarded Time Start Time: 09:30 Stop Time: 09:53 DATE: Dec 07, 2022 Total Time Billed (hr/min): 23 Billed Treatment Time ADL 23 MIN LENNY HAMILTON OT Dec 07, 2022 14:12
--- NOTE | 2022-12-07 18:00 | Progress Note - Hospitalist ---
Subjective HPI/CC On Admission Date Seen by Provider: Dec 07, 2022 Time Seen by Provider: 09:45 77M w/ a hx of lung cancer, who was d/c last Monday for a Klebsiella UTI with abx to take for 5 days, which he took, presents after having cough, SOB, and worsening weakness since then. Last night he was bed-bound and so decided to come in. CT shows he has b/l interstitial infiltrates, a small left effusion, and left lower lobe consolidation. He denies N/V, fever, chills, confusion, dizziness. He receives chemotherapy and radiation weekly. He hast not had his chemotherapy the last two Mondays, but did have his radiation last Monday. Subjective/Events-last exam He is lightheaded. He denies chest pain. He is short of breath. Objective Exam Vital Signs Vital Signs Date Time Temp Pulse Resp B/P (MAP) Pulse Ox O2 Delivery O2 Flow Rate FiO2 12/07/22 17:00 92 91/60 (70) 96 Nasal Cannula 2.00 12/07/22 15:51 36.3 12/06/22 19:00 15 12/06/22 17:37 21 Capillary Refill : Less Than 3 Seconds General Appearance: Chronically ill, Mild Distress Respiratory: Decreased Breath Sounds, Other (tachypnea) Gastrointestinal: Normal Bowel Sounds, Soft Extremity: Normal Inspection, No Pedal Edema Neurologic/Psychiatric: Alert, Normal Mood/Affect Results/Procedures Lab Laboratory Tests 12/07/22 02:00 Patient resulted labs reviewed. 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
[2022-12-07] MEDS: LIDOCAINE PATCH REMOVAL TP SCH (20:21)
[2022-12-07] MEDS: MIRTAZAPINE 15 MG TABLET PO SCH (20:21)
[2022-12-07] MEDS: APIXABAN 5 MG TABLET PO SCH (20:21)
[2022-12-08] MEDS ORDERED: meTOprolol TARTRATE (IR) 50 MG TABLET PO ONE (01:15)
[2022-12-08] MEDS ORDERED: meTOprolol TARTRATE (IR) 50 MG TABLET ONE (01:22)
[2022-12-08] MEDS: ACETAMINOPHEN 500 MG TABLET PO PRN (03:59)
[2022-12-08 04:57] LABS: BASOPHILS % (AUTO) 0 % (0-10); EOSINOPHILS % (AUTO) 0 % (0-10); HEMATOCRIT 29 % (40-54); HEMOGLOBIN 9.6 g/dL (13.3-17.7); LYMPHOCYTES # (AUTO) 0.1 10^3/uL (1.0-4.0); LYMPHOCYTES % (AUTO) 3 % (12-44); MEAN CORPUSCULAR HEMOGLOBIN 27 pg (25-34); MEAN CORPUSCULAR HGB CONC 34 g/dL (32-36); MEAN CORPUSCULAR VOLUME 79 fL (80-99); MONOCYTES # (AUTO) 0.1 10^3/uL (0.0-1.0); MONOCYTES % (AUTO) 3 % (0-12); NEUTROPHILS # (AUTO) 2.7 10^3/uL (1.8-7.8); NEUTROPHILS % (AUTO) 94 % (42-75); PLATELET COUNT 370 10^3/uL (130-400); WHITE BLOOD COUNT 2.9 10^3/uL (4.3-11.0)
[2022-12-08 05:19] LABS: ALBUMIN 2.2 GM/DL (3.2-4.5); POTASSIUM 3.8 MMOL/L (3.6-5.0)
[2022-12-08 05:20] LABS: CALCIUM 8.2 MG/DL (8.5-10.1)
[2022-12-08 05:23] LABS: BILIRUBIN,TOTAL 0.4 MG/DL (0.1-1.0)
[2022-12-08 05:25] LABS: CREATININE SERUM 0.49 MG/DL (0.60-1.30); PHOSPHORUS 2.5 MG/DL (2.3-4.7)
[2022-12-08] MEDS: POTASSIUM CL 10MEQ/50ML IVPB 50 ML IV SCH ×3 (05:25→06:45)
[2022-12-08 05:28] LABS: MAGNESIUM 1.8 MG/DL (1.6-2.4)
[2022-12-08] MEDS: MAGNESIUM 1 GM/100 ML IVPB 100 ML IV SCH ×3 (05:31→06:39)
[2022-12-08] MEDS ORDERED: MAGNESIUM 1 GM/100 ML IVPB 200 ML IV ONE (05:42)
[2022-12-08 05:55] LABS: ELLIPT/OVALOCYTES SLIGHT; LYMPHOCYTES % (MANUAL) 3 %; MICROCYTOSIS SLIGHT; MONOCYTES % (MANUAL) 2 %; NEUTROPHILS % (MANUAL) 95 %; POIKILOCYTOSIS SLIGHT
[2022-12-08] MEDS: RT-Ipratropium/Albuterol NEB 3 ML VIAL INH SCH ×3 (07:46→19:21)
--- NOTE | 2022-12-08 08:26 | Cardiology Progress Note ---
Subjective Date Seen by Provider: Dec 08, 2022 Time Seen by Provider: 08:21 Subjective/Events-last exam Patient was seen at bedside, laying down comfortably, feeling better Objective-Cardiology Exam Last Set of Vital Signs Vital Signs 12/06/22 12/06/22 12/08/22 12/08/22 12/08/22 17:37 19:00 04:35 06:00 07:15 Temp 37.4 Pulse 86 Resp 15 B/P (MAP) 98/63 (75) Pulse Ox 93 O2 Delivery Nasal Cannula O2 Flow Rate 2.00 FiO2 21 I&O Intake and Output 12/08/22 00:00 Intake Total 1090 ml Output Total 1120 ml Balance -30 ml Intake Oral 690 ml IV Total 400 ml Output Urine Total 1120 ml General: Alert, Oriented X3, Cooperative HEENT: Atraumatic, PERRLA Neck: Supple, No JVD, No Thyromegaly Lungs: Normal Air Movement, Other (Bilateral rhonchi) Heart: Regular Rate, Normal S1, Normal S2, No Murmurs Abdomen: Normal Bowel Sounds, Soft, No Tenderness, No Hepatosplenomegaly, No Masses Extremities: No Clubbing, No Cyanosis, No Edema, Normal Pulses, No Tenderness/Swelling Skin: No Rashes, No Breakdown, No Significant Lesion Neuro: Normal Speech, Normal Tone, Sensation Intact Psych/Mental Status: Mental Status NL, Mood NL Results Lab Laboratory Tests 12/08/22 04:22 A/P-Cardiology Admission Diagnosis Pneumonia Shortness of breath Tachycardia Generalized weakness Assessment/Plan Pneumonia, receiving antibiotics Managed by primary care physician Shortness of breath, cough, secondary to pneumonia Defer management to primary care team Atrial fibrillation with rapid ventricular response, Status post electrical cardioversion on December 07, 2022. Currently in sinus rhythm Continue on Cardizem, Eliquis and Multaq and evaluate tolerance and response 2D echo was done on December 05, 2022 with mild LVH, ejection fraction 45 to 50%, mild mitral regurgitation mild to moderate tricuspid regurgitation, pulmonary ar romelia pressure 45 mmHg Hypertension, monitor blood pressure Generalized weakness secondary to pneumonia. IRWIN PETERS MD Dec 08, 2022 08:26
[2022-12-08] MEDS: dilTIAZem DRIP 125 MG/125 ML DRIP IV SCH (08:44)
[2022-12-08] MEDS: SODIUM CHLORIDE 1 GM TABLET PO SCH ×2 (08:45→20:29)
[2022-12-08] MEDS: DRONEDARONE 400 MG TABLET PO SCH ×2 (08:45→20:29)
[2022-12-08] MEDS: meTOprolol TARTRATE (IR) 50 MG TABLET PO SCH ×2 (08:45→20:29)
[2022-12-08] MEDS: LIDOCAINE 4% PATCH TOP SCH (08:45)
[2022-12-08] MEDS: APIXABAN 5 MG TABLET PO SCH ×2 (08:45→20:29)
--- NOTE | 2022-12-08 09:30 | Occupational Ther Daily Note ---
OT Current Status-Daily Note Subjective Patient reports he is just getting worse, and how much worse does it have to be to just . Pain Location: No Pain Reported Mental Status/Objective Patient Orientation: Person, Place, Time, Situation Attachments: Telemetry ADL-Treatment Patient wants to eat regular food. Ambulated with therapy to sink, stood for use of urinal, PAteitn poured urine down sink before intervention for measuring and proper disposal could occur. Stood ant sink for hand washing.w/ FWW and CGA Therapy Code Descriptions/Definitions Functional [place] Measure: 0=Not Assessed/NA 4=Minimal Assistance 1=Total Assistance 5=Supervision or Setup 2=Maximal Assistance 6=Modified [place] 3=Moderate Assistance 7=Complete IndependenceSCALE: Activities may be completed with or without assistive devices. 1-Isxaolgrrl-nzkqqdd completes the activity by him/herself with no assistance from a helper. 5-Set-up or Clean-up Assistance-helper sets up or cleans up; patient completes activity. [place] assists only prior to or following the activity. 4-Supervision or Touching Assistance-helper provides verbal cues and/or touchi ng/steadying and/or contact guard assistance as patient completes activity. Assistance may be provided throughout the activity or intermittently. 3-Partial/Moderate Assistance-helper does LESS THAN HALF the effort. [place] lifts, holds or supports trunk or limbs, but provides less than half the effort. 2-Substantial/Maximal Assistance-helper does MORE THAN HALF the effort. [place] lifts or holds trunk or limbs and provides more than half the effort. 4-Zndfiixla-wfaaac does ALL the effort. Patient does none of the effort to complete the activity. Or, the assistance of 2 or more helpers is required for the patient to complete the activity. If activity was not attempted, code reason: 7-Patient Refused. 9-Not Applicable-not attempted and the patient did not perform the activity before the current illness, exacerbation or injury. 10-Not Attempted due to Environmental Limitations-(lack of equipment, weather restraints, etc.). 88-Not Attempted due to Medical Conditions or Safety Concerns. Eating (QC): 7 (refer to ST) Oral Hygiene (QC): 5 (dentures) Upper Body Dressing (QC): 4 Lower Body Dressing (QC): 4 On/Off Footwear: 4 (d/t balance in sitting) Toileting Hygiene (QC): 4 Toilet Transfer (QC): 4 Education OT Patient Education: Correct positioning, Modified ADL techniques, Progress toward Goal/Update tx plan, Purpose of tx/functional activities, Reviewed precautions, Rehab process, Safety issues, Transfer techniques, Use of adapted equipment Teaching Recipient: Patient Teaching Methods: Demonstration, Discussion Response to Teaching: Reinforcement Needed OT Environmental Planner Goals Care Home Goals Eating (QC): 6 Oral Hygiene (QC): 6 Toileting Hygiene (QC): 6 Shower/Bathe Self (QC): 6 Upper Body Dressing (QC): 6 Lower Body Dressing (QC): 6 On/Off Footwear (QC): 6 1=Demonstrate adherence to instructed precautions during ADL tasks. 2=Patient will verbalize/demonstrate understanding of assistive devices/modifications for ADL. 3=Patient will improve strength/tolerance for activity to enable patient to perform ADL's. OT Education/Plan Problem List/Assessment Assessment: Decreased Activ Tolerance, Decreased Safety Aware, Decreased UE Strength, Impaired Coordination, Impaired Funct Balance, Restricted Funct UE ROM Discharge Recommendations Plan/Recommendations: Continue POC Therapy Discharge Recommendati: Post Acute OT Treatment Plan/Plan of Care Treatment,Training & Education: Yes Patient would benefit from OT for education, treatment and training to promote independence in ADL's, mobility, safety and/or upper extremity function for ADL's. Plan of Care: ADL Retraining, Concurrent Therapy, Functional Mobility, Group Exercise/Act as Ind, UE Funct Exercise/Act Treatment Duration: Dec 13, 2022 Frequency: 3 times per week (3-5 TIMES PER WEEK) Estimated Hrs Per Day: .25 hour per day Rehab Potential: Guarded Time Start Time: 08:31 Stop Time: 08:44 DATE: Dec 08, 2022 Total Time Billed (hr/min): 13 Billed Treatment Time ADL 13 min LENNY HAMILTON OT Dec 08, 2022 09:30
--- NOTE | 2022-12-08 09:47 | Physical Therapy Daily Note ---
PT Daily Note-Current Subjective Patient agrees to therapy. Pain Section J - Health Conditions 1. Rarely or not at all 2. Occasionally 3. Frequently 4. Almost constantly 8. Unable to answer Pain Effect on Sleep: 1 Pain Interference with Therapy: 1 Pain Interference w/Day-to-Day: 1 Transfers SCALE: Activities may be completed with or without assistive devices. 8-Dmxhugpsyr-bulswmm completes the activity by him/herself with no assistance from a helper. 5-Set-up or Clean-up Assistance-helper sets up or cleans up; patient completes activity. [place] assists only prior to or following the activity. 4-Supervision or Touching Assistance-helper provides verbal cues and/or touching/steadying and/or contact guard assistance as patient completes activity. Assistance may be provided throughout the activity or intermittently. 3-Partial/Moderate Assistance-helper does LESS THAN HALF the effort. [place] lifts, holds or supports trunk or limbs, but provides less than half the effort. 2-Substantial/Maximal Assistance-helper does MORE THAN HALF the effort. [place] lifts or holds trunk or limbs and provides more than half the effort. 7-Bvfovbfcm-ycidpl does ALL the effort. Patient does none of the effort to complete the activity. Or, the assistance of 2 or more helpers is required for the patient to complete the activity. If activity was not attempted, code reason: 7-Patient Refused. 9-Not Applicable-not attempted and the patient did not perform the activity before the current illness, exacerbation or injury. 10-Not Attempted due to Environmental Limitations-(lack of equipment, weather restraints, etc.). 88-Not Attempted due to Medical Conditions or Safety Concerns. Lying to Sitting/Side of Bed(Q: 6 Sit to Stand (QC): 4 Chair/Kjj-hq-Fkrct Xfer(QC): 4 Weight Bearing Right Lower Extremity: Right Full Weight Bearing Left Lower Extremity: Left Full Weight Bearing Gait Training Distance: 75' Walk 10 feet (QC): 4 Walk 50 ft with 2 Turns(QC): 4 Gait Assistive Device: FWW bilateral knee flexed posture/VC's for body placement in FWW and FWW use. Assessment Patient tolerated treatment well with noted increase SOA with minimal activity. O2 4L with activity with SAO2 decreasing to 85% with quick recovery. Patient up in recliner with needs met. PT Detention Goals Elevator Supervisor Goals PT Elevator Supervisor Goals Time Frame: Dec 31, 2022 Sit to Lying (QC): 6 Lying-Sitting on Side/Bed(QC): 6 Sit to Stand (QC): 6 Chair/Glm-cb-Cnoqi Xfer(QC): 6 Toilet Transfer (QC): 6 Does the Patient Walk: Yes Walk 10 feet (QC): 6 Walk 50ft with 2 Turns (QC): 6 Walk 150 ft (QC): 6 PT Plan Treatment/Plan Treatment Plan: Continue Plan of Care Treatment Plan: Bed Mobility, Education, Functional Activity Joey, Functional Strength, Gait, Safety, Therapeutic Exercise, Transfers Treatment Duration: Dec 31, 2022 Frequency: 5 times per week Estimated Hrs Per Day: .25 hour per day Patient and/or Family Agrees t: Yes Time Time In: 831 Time Out: 844 DATE: Dec 08, 2022 Total Billed Treatment Time: 13 Total Billed Treatment 1 visit GT 13 min BRYNN SELLERS PT Dec 08, 2022 09:47
--- NOTE | 2022-12-08 11:27 | Tele-ICU Progress Note ---
Subjective Date Seen by a Provider: Dec 08, 2022 Time Seen by a Provider: 11:27 Subjective/Events-last exam (Tele-ICU Physician , Progress Note ) Service provided via interactive audio and video telecommunSailogy E-CARE system to a patient admitted to ICU bed in [facility]. Patient is seen today due to persistent need of ICU care Available chart/ vitals / labs / Images reviewed Video assessment done using teleICU camera, rest of exam as per RN Discussed with RN Events overnight : Afebrile hemodynamically stable Respiratory - 2L - RA I/O = neg Drips: Pressors- no Hospital course: (12/02) 77M admitted for pneumonia and recent Klebsiella UTI-recently finished antibiotics. Lung cancer w/chemo and radiation but no treatments this week. CTA NEG for PE but worsening infiltrates. On room air-neg severe/shock (12/03) TX to ICU for rapid afib (12/05) Increasing O2 needs-mild. 12/06, 2 L o2 , lovenox -> to proph dose 11/26 12/07 - RVR - cardizem gtt started --> low BP --> cardioversion 12/08 - sinus , 2 L A/P Atrial fibrillation with rapid ventricular rate currently converted to normal sinus rhythm -as per cards Discontinue amiodarone, but on 12/07 - RVR - cardizem gtt started --> low BP --> cardioversion , on ELiquis 12/07 - AC with lovenox -> to proph dose 11/26 - on ELiquis 12/07 Multifoical PNA - cont IV abx Advanced lung cancer status post chemoradiation therapy - Underlying pulmonary fibrosis Hyponatremia - mild - ? siadh with lung dz ECHO December 05, 2022 withEF 45 to 50%, mild to moderate TR, RVSP 45 mmHg PT, ? nutritional consult Lines : periph - [place] - acsessed , (Central Line Necessity Reviewed) Verduzco: void OG: Nutrition: po Analgesia: Anxiety/ delirium VTE Prophylaxis: on ELiquis 12/07 Stress Ulcer Prophylaxis: na Plans in collaboration with bedside consultants and IM MDs. Discussed with RN to reach out if any questions or concerns Case and care daily discussed on multidisciplinary rounds ( RN, PharmD, Privacy Compliance Manager , Respiratory Therapy, addiction social worker ) A total of 22 minutes of critical care time was devoted to this patient today, required to treat and/or prevent further deterioration of critical care condition ( as above ) . I am remotely monitoring this patient from another state. I am unable to do the bedside exam, and history/physical and pertinent information is taken from other notes in the computer and bedside staff. Sepsis Event Evaluation Height, Weight, BMI Height: '" Weight: lbs. oz. kg; 17.41 BMI Method: Exam Exam Patient acknowledged, consented, and participated in this virtual visit which was conducted using real time audio/video Vital Signs Date Time Temp Pulse Resp B/P (MAP) Pulse Ox O2 Delivery O2 Flow Rate FiO2 12/08/22 10:00 82 114/65 (81) 95 Nasal Cannula 2.00 12/08/22 09:00 104 107/56 (73) 90 Nasal Cannula 2.00 12/08/22 08:00 36.5 12/08/22 08:00 100 Nasal Cannula 2.00 12/08/22 08:00 85 111/55 (73) 93 Nasal Cannula 2.00 12/08/22 07:15 86 12/08/22 07:00 86 103/55 (71) 93 Nasal Cannula 2.00 12/08/22 06:00 85 98/63 (75) 93 Nasal Cannula 2.00 12/08/22 05:00 89 99/59 (72) 95 Nasal Cannula 2.00 12/08/22 04:35 37.4 12/08/22 04:12 37.8 Nasal Cannula 2.00 12/08/22 04:00 89 125/78 (94) 96 Nasal Cannula 2.00 12/08/22 04:00 95 Nasal Cannula 2.00 12/08/22 03:59 37.8 12/08/22 03:00 85 120/65 (83) 97 Nasal Cannula 2.00 12/08/22 02:00 109 107/65 (79) 95 Nasal Cannula 2.00 12/08/22 01:00 129 12/08/22 01:00 105 124/66 (85) 96 Nasal Cannula 2.00 12/08/22 00:00 107 128/64 (85) 93 Nasal Cannula 2.00 12/07/22 23:59 95 Nasal Cannula 2.00 12/07/22 23:30 37.7 Nasal Cannula 2.00 12/07/22 23:00 103 122/67 (85) 92 Nasal Cannula 2.00 12/07/22 22:00 106 125/56 (79) 96 Nasal Cannula 2.00 12/07/22 21:00 93 110/56 (74) 96 Nasal Cannula 2.00 12/07/22 20:00 98 112/57 (75) 93 Nasal Cannula 2.00 12/07/22 20:00 97 Nasal Cannula 2.00 12/07/22 19:18 36.8 12/07/22 19:00 101 12/07/22 19:00 100 110/56 (74) 95 Nasal Cannula 2.00 12/07/22 18:46 99 Nasal Cannula 2.00 12/07/22 18:00 93 108/59 (75) 97 Nasal Cannula 2.00 12/07/22 17:00 92 91/60 (70) 96 Nasal Cannula 2.00 12/07/22 16:00 90 93/51 (65) 97 Nasal Cannula 2.00 12/07/22 16:00 100 Nasal Cannula 2.00 12/07/22 15:51 36.3 12/07/22 15:31 100 Nasal Cannula 3.00 12/07/22 15:00 91 104/57 (73) 100 Nasal Cannula 2.00 12/07/22 14:00 81 96/53 (67) 100 Nasal Cannula 2.00 12/07/22 13:00 81 108/65 (79) 100 Nasal Cannula 2.00 12/07/22 13:00 82 12/07/22 12:00 79 88/54 (65) 99 Nasal Cannula 2.00 12/07/22 12:00 100 Nasal Cannula 2.00 12/07/22 11:45 82 91/49 (63) 97 Nasal Cannula 2.00 I & O 12/08/22 07:00 Intake Total 830 ml Output Total 1045 ml Balance -215 ml Height & Weight Height: '" Weight: lbs. oz. kg; 17.41 BMI Method: General Appearance: Chronically ill, Mild Distress HEENT: PERRL/EOMI; No Scleral Icterus (L), No Scleral Icterus (R) Neck: Normal Inspection, Non Tender; No JVD Respiratory: Decreased Breath Sounds, Other (tachypnea) Cardiovascular: No Murmur, Tachycardia Capillary Refill: Less Than 3 Seconds Gastrointestinal: normal bowel sounds, non tender, soft Extremity: Normal Inspection, No Pedal Edema Neurologic/Psychiatric: Alert, Normal Mood/Affect Skin: Normal Color, Warm/Dry Results Lab Laboratory Tests 12/07/22 02:00 12/08/22 04:22 Assessment/Plan Assessment/Plan 1 SHALOM FLETCHER MD Dec 08, 2022 11:27
[2022-12-08 11:50] VITALS: BP 121/61
[2022-12-08 15:45] VITALS: BP 118/59
--- NOTE | 2022-12-08 17:44 | Progress Note - Hospitalist ---
Subjective HPI/CC On Admission Date Seen by Provider: Dec 08, 2022 Time Seen by Provider: 10:45 77M w/ a hx of lung cancer, who was d/c last Monday for a Klebsiella UTI with abx to take for 5 days, which he took, presents after having cough, SOB, and worsening weakness since then. Last night he was bed-bound and so decided to come in. CT shows he has b/l interstitial infiltrates, a small left effusion, and left lower lobe consolidation. He denies N/V, fever, chills, confusion, dizziness. He receives chemotherapy and radiation weekly. He hast not had his chemotherapy the last two Mondays, but did have his radiation last Monday. Subjective/Events-last exam He is feeling a bit better today. He was able to walk more with therapy. He has no complaints. Objective Exam Vital Signs Vital Signs Date Time Temp Pulse Resp B/P (MAP) Pulse Ox O2 Delivery O2 Flow Rate FiO2 12/08/22 16:07 97 Room Air 12/08/22 15:45 37.1 95 16 118/59 (78) 2.00 12/08/22 11:50 21 Capillary Refill : Less Than 3 Seconds General Appearance: No Apparent Distress, Chronically ill Respiratory: Crackles, Decreased Breath Sounds Cardiovascular: No Murmur, Irregularly Irregular Gastrointestinal: Normal Bowel Sounds, Soft Extremity: Normal Inspection, No Pedal Edema Neurologic/Psychiatric: Alert, Normal Mood/Affect Results/Procedures Lab Laboratory Tests 12/08/22 04:22 Patient resulted labs reviewed. 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
[2022-12-08 20:26] VITALS: BP 120/58
[2022-12-08] MEDS: MIRTAZAPINE 15 MG TABLET PO SCH (20:29)
[2022-12-08] MEDS: LIDOCAINE PATCH REMOVAL TP SCH (20:29)
[2022-12-09] VITALS (7 sets, daily range): BP systolic 112–136; BP diastolic 53–72
[2022-12-09 05:08] LABS: BASOPHILS % (AUTO) 0 % (0-10); EOSINOPHILS % (AUTO) 0 % (0-10); HEMATOCRIT 27 % (40-54); HEMOGLOBIN 9.1 g/dL (13.3-17.7); LYMPHOCYTES # (AUTO) 0.1 10^3/uL (1.0-4.0); LYMPHOCYTES % (AUTO) 3 % (12-44); MEAN CORPUSCULAR HEMOGLOBIN 26 pg (25-34); MEAN CORPUSCULAR HGB CONC 34 g/dL (32-36); MEAN CORPUSCULAR VOLUME 79 fL (80-99); MONOCYTES # (AUTO) 0.1 10^3/uL (0.0-1.0); MONOCYTES % (AUTO) 3 % (0-12); NEUTROPHILS # (AUTO) 2.8 10^3/uL (1.8-7.8); NEUTROPHILS % (AUTO) 93 % (42-75); PLATELET COUNT 342 10^3/uL (130-400)
[2022-12-09] MEDS: RT-Ipratropium/Albuterol NEB 3 ML VIAL INH SCH ×3 (08:13→19:28)
[2022-12-09] MEDS: DRONEDARONE 400 MG TABLET PO SCH ×2 (09:00→19:49)
[2022-12-09] MEDS: LIDOCAINE 4% PATCH TOP SCH (09:00)
[2022-12-09] MEDS: meTOprolol TARTRATE (IR) 50 MG TABLET PO SCH ×2 (09:00→19:49)
[2022-12-09] MEDS: APIXABAN 5 MG TABLET PO SCH ×2 (09:00→19:49)
[2022-12-09] MEDS: SODIUM CHLORIDE 1 GM TABLET PO SCH ×2 (09:57→19:54)
--- NOTE | 2022-12-09 10:53 | Cardiology Progress Note ---
Subjective Date Seen by Provider: Dec 09, 2022 Time Seen by Provider: 10:51 Subjective/Events-last exam Patient was seen at bedside, laying down comfortably, feeling better Objective-Cardiology Exam Last Set of Vital Signs Vital Signs 12/08/22 12/09/22 12/09/22 11:50 07:30 08:20 Temp 37.5 Pulse 85 Resp 18 B/P (MAP) 133/72 (92) Pulse Ox 92 O2 Delivery Nasal Cannula O2 Flow Rate 2.00 FiO2 21 I&O Intake and Output 12/09/22 00:00 Intake Total 1440 ml Output Total 1150 ml Balance 290 ml Intake Oral 1440 ml Output Urine Total 1150 ml # Urine Diapers 2 # Bowel Movements 1 General: Alert, Oriented X3, Cooperative HEENT: Atraumatic, PERRLA Neck: Supple, No JVD, No Thyromegaly Lungs: Normal Air Movement, Other (Bilateral rhonchi) Heart: Regular Rate, Normal S1, Normal S2, No Murmurs Abdomen: Normal Bowel Sounds, Soft, No Tenderness, No Hepatosplenomegaly, No Masses Extremities: No Clubbing, No Cyanosis, No Edema, Normal Pulses, No Tenderness/Swelling Skin: No Rashes, No Breakdown, No Significant Lesion Neuro: Normal Speech, Normal Tone, Sensation Intact Psych/Mental Status: Mental Status NL, Mood NL Results Lab Laboratory Tests 12/09/22 04:50 A/P-Cardiology Admission Diagnosis Pneumonia Shortness of breath Tachycardia Generalized weakness Assessment/Plan Pneumonia, receiving antibiotics Managed by primary care physician Shortness of breath, cough, secondary to pneumonia Defer management to primary care team Atrial fibrillation with rapid ventricular response, Status post electrical cardioversion on December 07, 2022. Currently in sinus rhythm Continue on Cardizem, Eliquis and Multaq and evaluate tolerance and response 2D echo was done on December 05, 2022 with mild LVH, ejection fraction 45 to 50%, mild mitral regurgitation mild to moderate tricuspid regurgitation, pulmonary artery pressure 45 mmHg Hypertension, monitor blood pressure Squamous cell carcinoma of the lung. Defer management to medical team Generalized weakness secondary to pneumonia. IRWIN PETERS MD Dec 09, 2022 10:53
--- NOTE | 2022-12-09 10:55 | Physical Therapy Daily Note ---
PT Daily Note-Current Subjective Patient agrees to therapy. Pain Section J - Health Conditions 1. Rarely or not at all 2. Occasionally 3. Frequently 4. Almost constantly 8. Unable to answer Pain Effect on Sleep: 1 Pain Interference with Therapy: 1 Pain Interference w/Day-to-Day: 1 Mental Status Attachments: Oxygen Transfers SCALE: Activities may be completed with or without assistive devices. 6-Pkawclaqis-ljggtjp completes the activity by him/herself with no assistance from a helper. 5-Set-up or Clean-up Assistance-helper sets up or cleans up; patient completes activity. [place] assists only prior to or following the activity. 4-Supervision or Touching Assistance-helper provides verbal cues and/or touching/steadying and/or contact guard assistance as patient completes activity. Assistance may be provided throughout the activity or intermittently. 3-Partial/Moderate Assistance-helper does LESS THAN HALF the effort. [place] lifts, holds or supports trunk or limbs, but provides less than half the effort. 2-Substantial/Maximal Assistance-helper does MORE THAN HALF the effort. [place] lifts or holds trunk or limbs and provides more than half the effort. 6-Vixscxfkf-qfuzff does ALL the effort. Patient does none of the effort to complete the activity. Or, the assistance of 2 or more helpers is required for the patient to complete the activity. If activity was not attempted, code reason: 7-Patient Refused. 9-Not Applicable-not attempted and the patient did not perform the activity before the current illness, exacerbation or injury. 10-Not Attempted due to Environmental Limitations-(lack of equipment, weather restraints, etc.). 88-Not Attempted due to Medical Conditions or Safety Concerns. Lying to Sitting/Side of Bed(Q: 6 Sit to Stand (QC): 4 Chair/Xcy-ws-Pgxgu Xfer(QC): 4 Weight Bearing Right Lower Extremity: Right Full Weight Bearing Left Lower Extremity: Left Full Weight Bearing Gait Training Distance: 75' Walk 10 feet (QC): 4 Walk 50 ft with 2 Turns(QC): 4 Gait Assistive Device: FWW rapid pace/functional gait sequence Exercises Seated Therapy Exercises: Long arc quads, Hip flexion Seated Reps: 15 Assessment Patient tolerated treatment well and is up in recliner with needs met. Patient does have SOA with minimal activity with O2 in place. PT Longterm Goals Dye Box Operator Goals PT Dye Box Operator Goals Time Frame: Dec 31, 2022 Sit to Lying (QC): 6 Lying-Sitting on Side/Bed(QC): 6 Sit to Stand (QC): 6 Chair/Uma-zc-Izolx Xfer(QC): 6 Toilet Transfer (QC): 6 Does the Patient Walk: Yes Walk 10 feet (QC): 6 Walk 50ft with 2 Turns (QC): 6 Walk 150 ft (QC): 6 PT Plan Treatment/Plan Treatment Plan: Continue Plan of Care Treatment Plan: Bed Mobility, Education, Functional Activity Joey, Functional Strength, Gait, Safety, Therapeutic Exercise, Transfers Treatment Duration: Dec 31, 2022 Frequency: 5 times per week Estimated Hrs Per Day: .25 hour per day Patient and/or Family Agrees t: Yes Time Time In: 1036 Time Out: 1045 DATE: Dec 09, 2022 Total Billed Treatment Time: 9 Total Billed Treatment 1 visit FA 9 min BRYNN SELLERS PT Dec 09, 2022 10:55
--- NOTE | 2022-12-09 11:08 | Occupational Ther Daily Note ---
OT Current Status-Daily Note Subjective Agreeable to participate, gown applied as robe to cover backside, portable tank used in room Mental Status/Objective Patient Orientation: Person, Place, Time, Situation Attachments: Oxygen (4 liters w/ mobility) ADL-Treatment Declines changing t shirt, and brief, agrees to don gown as robe. Ambulates in room with quick pace to return to recliner. VC for safety w/ 02 lines an FWW Therapy Code Descriptions/Definitions Functional [place] Measure: 0=Not Assessed/NA 4=Minimal Assistance 1=Total Assistance 5=Supervision or Setup 2=Maximal Assistance 6=Modified [place] 3=Moderate Assistance 7=Complete IndependenceSCALE: Activities may be completed with or without assistive devices. 8-Gtydfzjxci-rnkwabd completes the activity by him/herself with no assistance f rom a helper. 5-Set-up or Clean-up Assistance-helper sets up or cleans up; patient completes activity. [place] assists only prior to or following the activity. 4-Supervision or Touching Assistance-helper provides verbal cues and/or touching/steadying and/or contact guard assistance as patient completes activity. Assistance may be provided throughout the activity or intermittently. 3-Partial/Moderate Assistance-helper does LESS THAN HALF the effort. [place] lifts, holds or supports trunk or limbs, but provides less than half the effort. 2-Substantial/Maximal Assistance-helper does MORE THAN HALF the effort. [place] lifts or holds trunk or limbs and provides more than half the effort. 1-Irutvtxbn-dctohj does ALL the effort. Patient does none of the effort to complete the activity. Or, the assistance of 2 or more helpers is required for the patient to complete the activity. If activity was not attempted, code reason: 7-Patient Refused. 9-Not Applicable-not attempted and the patient did not perform the activity before the current illness, exacerbation or injury. 10-Not Attempted due to Environmental Limitations-(lack of equipment, weather restraints, etc.). 88-Not Attempted due to Medical Conditions or Safety Concerns. Eating (QC): 5 (dentures soaking) Oral Hygiene (QC): 5 Upper Body Dressing (QC): 4 Lower Body Dressing (QC): 4 On/Off Footwear: 7 (already on) Toileting Hygiene (QC): 4 Toilet Transfer (QC): 4 Education OT Patient Education: Correct positioning, Energy conservation (education for 02 and c02), Exercise program, Modified ADL techniques, Progress toward Goal/Update tx plan, Purpose of tx/functional activities, Reviewed precautions, Rehab process, Safety issues, Transfer techniques, Use of adapted equipment Teaching Recipient: Patient Teaching Methods: Demonstration, Discussion Response to Teaching: Reinforcement Needed OT Residential Goals Helmet Hat Sweatband Puncher Goals Eating (QC): 6 Oral Hygiene (QC): 6 Toileting Hygiene (QC): 6 Shower/Bathe Self (QC): 6 Upper Body Dressing (QC): 6 Lower Body Dressing (QC): 6 On/Off Footwear (QC): 6 1=Demonstrate adherence to instructed precautions during ADL tasks. 2=Patient will verbalize/demonstrate understanding of assistive devices/modifications for ADL. 3=Patient will improve strength/tolerance for activity to enable patient to perform ADL's. OT Education/Plan Problem List/Assessment Assessment: Decreased Activ Tolerance, Decreased Safety Aware, Impaired Self- Care Skills Discharge Recommendations Plan/Recommendations: Continue POC Treatment Plan/Plan of Care Patient would benefit from OT for education, treatment and training to promote independence in ADL's, mobility, safety and/or upper extremity function for ADL's. Plan of Care: ADL Retraining, Concurrent Therapy, Functional Mobility, Group Exercise/Act as Ind, UE Funct Exercise/Act Treatment Duration: Dec 13, 2022 Frequency: 3 times per week (3-5 TIMES PER WEEK) Estimated Hrs Per Day: .25 hour per day Rehab Potential: Guarded Time Start Time: 11:01 Stop Time: 11:11 DATE: Dec 09, 2022 Total Time Billed (hr/min): 10 Billed Treatment Time FA 10 min LENNY HAMILTON OT Dec 09, 2022 11:08
--- NOTE | 2022-12-09 17:24 | Progress Note - Hospitalist ---
Subjective HPI/CC On Admission Date Seen by Provider: Dec 09, 2022 Time Seen by Provider: 11:15 77M w/ a hx of lung cancer, who was d/c last Monday for a Klebsiella UTI with abx to take for 5 days, which he took, presents after having cough, SOB, and worsening weakness since then. Last night he was bed-bound and so decided to come in. CT shows he has b/l interstitial infiltrates, a small left effusion, and left lower lobe consolidation. He denies N/V, fever, chills, confusion, dizziness. He receives chemotherapy and radiation weekly. He hast not had his chemotherapy the last two Mondays, but did have his radiation last Monday. Subjective/Events-last exam He is feeling about the same. He is wanting a different diet. Objective Exam Vital Signs Vital Signs Date Time Temp Pulse Resp B/P (MAP) Pulse Ox O2 Delivery O2 Flow Rate FiO2 12/09/22 16:52 37.4 87 28 112/53 (72) 92 Nasal Cannula 2.00 2.00 12/08/22 11:50 21 Capillary Refill : Less Than 3 Seconds General Appearance: No Apparent Distress, Chronically ill, Thin Respiratory: No Respiratory Distress, Decreased Breath Sounds Cardiovascular: Regular Rate, Rhythm, No Murmur Gastrointestinal: Normal Bowel Sounds, Soft Extremity: Normal Inspection, No Pedal Edema Neurologic/Psychiatric: Alert, Normal Mood/Affect Skin: Normal Color, Warm/Dry Results/Procedures Lab Laboratory Tests 12/09/22 04:50 Patient resulted labs reviewed. Imaging: Reviewed Imaging Report Assessment/Plan Assessment and Plan Assess & Plan/Chief Complaint Sepsis due to pneumonia, resolved Acute respiratory failure with hypoxia SCC of the lung s/p Cefepime Supplemental oxygen as needed, 2 L continuous and 4 L with exertion AFib with RVR Hypotension, resolved Cardiology following s/p cardioversion 12/07 Amiodarone Metoprolol Eliquis Hyponatremia Salt tabs Anemia Debility Severe protein calorie malnutrition Poor prognosis Diagnosis/Problems Diagnosis/Problems (1) Sepsis Status: Resolved Resolution Date/Time: 12/09/22 @ 17:24 (2) Pneumonia Status: Resolved Resolution Date/Time: 12/09/22 @ 17:24 (3) 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
[2022-12-09] MEDS: MIRTAZAPINE 15 MG TABLET PO SCH (19:49)
[2022-12-09] MEDS: LIDOCAINE PATCH REMOVAL TP SCH (21:00)
[2022-12-10 04:14] VITALS: BP 114/55
[2022-12-10] MEDS: RT-Ipratropium/Albuterol NEB 3 ML VIAL INH SCH ×3 (07:02→21:47)
[2022-12-10 07:13] VITALS: BP 119/57
[2022-12-10] MEDS: SODIUM CHLORIDE 1 GM TABLET PO SCH ×2 (09:32→19:47)
[2022-12-10] MEDS: LIDOCAINE 4% PATCH TOP SCH (09:34)
[2022-12-10] MEDS: APIXABAN 5 MG TABLET PO SCH ×2 (09:34→19:47)
[2022-12-10] MEDS: meTOprolol TARTRATE (IR) 50 MG TABLET PO SCH ×2 (09:34→19:47)
[2022-12-10] MEDS: DRONEDARONE 400 MG TABLET PO SCH ×2 (09:34→19:47)
[2022-12-10 11:12] VITALS: BP 104/54
[2022-12-10 16:21] VITALS: BP 110/54
--- NOTE | 2022-12-10 16:24 | Progress Note - Hospitalist ---
Subjective HPI/CC On Admission Date Seen by Provider: Dec 10, 2022 Time Seen by Provider: 10:50 77M w/ a hx of lung cancer, who was d/c last Monday for a Klebsiella UTI with abx to take for 5 days, which he took, presents after having cough, SOB, and worsening weakness since then. Last night he was bed-bound and so decided to come in. CT shows he has b/l interstitial infiltrates, a small left effusion, and left lower lobe consolidation. He denies N/V, fever, chills, confusion, dizziness. He receives chemotherapy and radiation weekly. He hast not had his chemotherapy the last two Mondays, but did have his radiation last Monday. Subjective/Events-last exam He is feeling ok. He has no complaints. Objective Exam Vital Signs Vital Signs Date Time Temp Pulse Resp B/P (MAP) Pulse Ox O2 Delivery O2 Flow Rate FiO2 12/10/22 15:00 90 Nasal Cannula 2.00 12/10/22 12:24 90 12/10/22 11:12 36.8 17 104/54 (71) 12/08/22 11:50 21 Capillary Refill : Less Than 3 Seconds General Appearance: No Apparent Distress, Chronically ill, Thin Respiratory: No Respiratory Distress, Decreased Breath Sounds Cardiovascular: Regular Rate, Rhythm, No Murmur Gastrointestinal: Normal Bowel Sounds, Soft Extremity: Non Tender, No Pedal Edema Neurologic/Psychiatric: Alert, Normal Mood/Affect Results/Procedures Lab Patient resulted labs reviewed. Imaging: Reviewed Imaging Report Assessment/Plan Assessment and Plan Assess & Plan/Chief Complaint Sepsis due to pneumonia, resolved Acute respiratory failure with hypoxia SCC of the lung s/p Cefepime Supplemental oxygen as needed, 2 L continuous and 4 L with exertion AFib with RVR Hypotension, resolved Cardiology following s/p cardioversion 12/07 Amiodarone Metoprolol Eliquis Hyponatremia Salt tabs Anemia Debility Severe protein calorie malnutrition Poor prognosis Diagnosis/Problems Diagnosis/Problems (1) Sepsis Status: Resolved Resolution Date/Time: 12/09/22 @ 17:24 (2) Pneumonia Status: Resolved Resolution Date/Time: 12/09/22 @ 17:24 (3) 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
--- NOTE | 2022-12-10 18:43 | Cardiology Progress Note ---
Cardiology SOAP Progress Note Subjective: No significant cardiac complaints. Objective: I&O/Vital Signs 12/10/22 12/10/22 12/10/22 12/10/22 07:00 07:04 07:13 11:12 Temp 36.9 36.8 Pulse 97 71 83 Resp 17 17 B/P (MAP) 119/57 (77) 104/54 (71) Pulse Ox 90 93 90 O2 Delivery Nasal Cannula Nasal Cannula Room Air O2 Flow Rate 2.00 2.00 12/10/22 12/10/22 12/10/22 12/10/22 11:48 12:24 15:00 16:21 Temp 36.8 Pulse 90 66 Resp 18 B/P (MAP) 110/54 (72) Pulse Ox 90 94 O2 Delivery Nasal Cannula Nasal Cannula Nasal Cannula O2 Flow Rate 2.00 2.00 2.00 12/10/22 00:00 Intake Total 930 ml Output Total 350 ml Balance 580 ml Constitutional: AAO x 3 Respiratory: lungs clear to auscultation Cardiovascular: regular rate-rhythm; No diastolic murmur, No systolic murmur Gastrointestional: soft Extremities: No pedal edema Neurologic/Psychiatric: alert, normal mood/affect, oriented x 3 Skin: pallor Results/Procedures: Labs Microbiology 12/04/22 MRSA Screen - Final, Complete MRSA not isolated 12/02/22 Blood Culture - Final, Complete A/P: Assessment/Dx: Pneumonia Shortness of breath Tachycardia, persistent atrial fibrillation Generalized weakness Lung cancer Plan: Pneumonia, receiving antibiotics Managed by primary care physician Shortness of breath, cough, secondary to pneumonia Defer management to primary care team Atrial fibrillation with rapid ventricular response, Status post electrical cardioversion on December 07, 2022. Currently in sinus rhythm Continue on Cardizem, Eliquis and Multaq and evaluate tolerance and response 2D echo was done on December 05, 2022 with mild LVH, ejection fraction 45 to 50%, mild mitral regurgitation mild to moderate tricuspid regurgitation, pulmonary artery pressure 45 mmHg Hypertension, monitor blood pressure Squamous cell carcinoma of the lung. Defer management to medical team Generalized weakness secondary to pneumonia. Shaheen WOMACK MD Dec 10, 2022 18:43
[2022-12-10 19:45] VITALS: BP 115/63
[2022-12-10] MEDS: MIRTAZAPINE 15 MG TABLET PO SCH (19:47)
[2022-12-10] MEDS: LIDOCAINE PATCH REMOVAL TP SCH (19:52)
[2022-12-10 23:35] VITALS: BP 128/59
[2022-12-11 04:11] VITALS: BP 129/62
[2022-12-11] MEDS: RT-Ipratropium/Albuterol NEB 3 ML VIAL INH SCH ×3 (06:43→20:30)
[2022-12-11 07:43] VITALS: BP 103/64
[2022-12-11] MEDS: SODIUM CHLORIDE 1 GM TABLET PO SCH ×2 (08:56→20:19)
[2022-12-11] MEDS: LIDOCAINE 4% PATCH TOP SCH (08:56)
[2022-12-11] MEDS: meTOprolol TARTRATE (IR) 50 MG TABLET PO SCH ×2 (08:56→20:19)
[2022-12-11] MEDS: APIXABAN 5 MG TABLET PO SCH ×2 (08:56→20:20)
[2022-12-11] MEDS: DRONEDARONE 400 MG TABLET PO SCH ×2 (08:56→20:19)
[2022-12-11 11:37] VITALS: BP 100/68
[2022-12-11 15:38] VITALS: BP 103/52
--- NOTE | 2022-12-11 16:20 | Progress Note - Hospitalist ---
Subjective HPI/CC On Admission Date Seen by Provider: Dec 11, 2022 Time Seen by Provider: 11:40 77M w/ a hx of lung cancer, who was d/c last Monday for a Klebsiella UTI with abx to take for 5 days, which he took, presents after having cough, SOB, and worsening weakness since then. Last night he was bed-bound and so decided to come in. CT shows he has b/l interstitial infiltrates, a small left effusion, and left lower lobe consolidation. He denies N/V, fever, chills, confusion, dizziness. He receives chemotherapy and radiation weekly. He hast not had his chemotherapy the last two Mondays, but did have his radiation last Monday. Subjective/Events-last exam He is feeling about the same. He says he has a red spot on his bottom. He has no other complaints or concerns. Objective Exam Vital Signs Vital Signs Date Time Temp Pulse Resp B/P (MAP) Pulse Ox O2 Delivery O2 Flow Rate FiO2 12/11/22 15:38 36.5 96 22 103/52 (69) 93 Nasal Cannula 2.00 12/08/22 11:50 21 Capillary Refill : Less Than 3 Seconds General Appearance: No Apparent Distress, Chronically ill, Thin Respiratory: No Respiratory Distress, Decreased Breath Sounds Cardiovascular: Regular Rate, Rhythm, No Murmur Gastrointestinal: Normal Bowel Sounds, Soft Extremity: Normal Inspection, No Pedal Edema Results/Procedures Lab Patient resulted labs reviewed. Imaging: Reviewed Imaging Report Assessment/Plan Assessment and Plan Assess & Plan/Chief Complaint Sepsis due to pneumonia, resolved Acute respiratory failure with hypoxia SCC of the lung s/p Cefepime Supplemental oxygen as needed, 2 L continuous and 4 L with exertion AFib with RVR Hypotension, resolved Cardiology following s/p cardioversion 12/07 Amiodarone Metoprolol Eliquis Hyponatremia Salt tabs Debility PT/OT Referral sent to [facility] Anemia Severe protein calorie malnutrition Poor prognosis Diagnosis/Problems Diagnosis/Problems (1) Sepsis Status: Resolved Resolution Date/Time: 12/09/22 @ 17:24 (2) Pneumonia Status: Resolved Resolution Date/Time: 12/09/22 @ 17:24 (3) 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
[2022-12-11 19:47] VITALS: BP 109/58
[2022-12-11] MEDS: MIRTAZAPINE 15 MG TABLET PO SCH (20:19)
[2022-12-11] MEDS: LIDOCAINE PATCH REMOVAL TP SCH (20:22)
[2022-12-11 23:15] VITALS: BP 110/62
[2022-12-12 03:56] VITALS: BP 142/81
[2022-12-12 05:37] LABS: BASOPHILS % (AUTO) 0 % (0-10); EOSINOPHILS % (AUTO) 1 % (0-10); HEMATOCRIT 29 % (40-54); HEMOGLOBIN 9.5 g/dL (13.3-17.7); LYMPHOCYTES # (AUTO) 0.1 10^3/uL (1.0-4.0); LYMPHOCYTES % (AUTO) 3 % (12-44); MEAN CORPUSCULAR HEMOGLOBIN 27 pg (25-34); MEAN CORPUSCULAR HGB CONC 33 g/dL (32-36); MEAN CORPUSCULAR VOLUME 80 fL (80-99); MEAN PLATELET VOLUME 9.3 fL (9.0-12.2); MONOCYTES # (AUTO) 0.1 10^3/uL (0.0-1.0); MONOCYTES % (AUTO) 2 % (0-12); NEUTROPHILS % (AUTO) 94 % (42-75); PLATELET COUNT 363 10^3/uL (130-400); WHITE BLOOD COUNT 3.2 10^3/uL (4.3-11.0)
[2022-12-12 05:51] LABS: CALCIUM 8.4 MG/DL (8.5-10.1); CREATININE SERUM 0.49 MG/DL (0.60-1.30); POTASSIUM 3.7 MMOL/L (3.6-5.0)
[2022-12-12 07:49] VITALS: BP 111/57
[2022-12-12] MEDS: LIDOCAINE 4% PATCH TOP SCH (08:48)
[2022-12-12] MEDS: APIXABAN 5 MG TABLET PO SCH (08:48)
[2022-12-12] MEDS: DRONEDARONE 400 MG TABLET PO SCH (08:48)
[2022-12-12] MEDS: meTOprolol TARTRATE (IR) 50 MG TABLET PO SCH (08:48)
[2022-12-12] MEDS: SODIUM CHLORIDE 1 GM TABLET PO SCH (09:00)
--- NOTE | 2022-12-12 09:01 | Diagnostic Imaging Report ---
EXAM: CHEST PA/LAT (2 VIEW) INDICATION: Pneumonia. COMPARISON: 12/06/2022. FINDINGS: No significant change in the extensive interstitial and airspace opacities in both lungs. No pleural effusion or pneumothorax. Normal heart size. No acute osseous findings. Right IJ tunneled port CVC tip lower SVC. IMPRESSION: Overall stable exam including extensive interstitial and airspace opacities in both lung suspicious for pneumonitis. Recommend followup to resolution. Dictated by: Dictated on workstation # [id number]
--- NOTE | 2022-12-12 09:46 | Cardiology Progress Note ---
Subjective Date Seen by Provider: Dec 12, 2022 Time Seen by Provider: 09:45 Subjective/Events-last exam Patient was seen at bedside, sitting comfortably, still short of air Denied any chest pain or palpitation Objective-Cardiology Exam Last Set of Vital Signs Vital Signs 12/08/22 12/12/22 12/12/22 11:50 07:49 08:22 Temp 36.6 Pulse 76 Resp 18 B/P (MAP) 111/57 (75) Pulse Ox 96 O2 Delivery Nasal Cannula O2 Flow Rate 2.00 FiO2 21 I&O Intake and Output 12/12/22 00:00 Intake Total 1390 ml Output Total 675 ml Balance 715 ml Intake Oral 1390 ml Output Urine Total 675 ml General: Alert, Oriented X3, Cooperative HEENT: Atraumatic, PERRLA Neck: Supple, No JVD, No Thyromegaly Lungs: Normal Air Movement, Other (Bilateral rhonchi) Heart: Regular Rate, Normal S1, Normal S2, No Murmurs Abdomen: Normal Bowel Sounds, Soft, No Tenderness, No Hepatosplenomegaly, No Masses Extremities: No Clubbing, No Cyanosis, No Edema, Normal Pulses, No Tenderness/Swelling Skin: No Rashes, No Breakdown, No Significant Lesion Neuro: Normal Speech, Normal Tone, Sensation Intact Psych/Mental Status: Mental Status NL, Mood NL Results Lab Laboratory Tests 12/12/22 05:21 A/P-Cardiology Admission Diagnosis Pneumonia Shortness of breath Tachycardia Generalized weakness Assessment/Plan Acute respiratory insufficiency, pneumonia, Acute exacerbation of COPD Managed by primary care physician Shortness of breath, cough, secondary to pneumonia Defer management to primary care team Atrial fibrillation with rapid ventricular response, Status post electrical cardioversion on December 07, 2022. Currently in sinus rhythm Continue on Cardizem, Eliquis and Multaq Evaluate twelve-lead EKG 2D echo was done on December 05, 2022 with mild LVH, ejection fraction 45 to 50%, mild mitral regurgitation mild to moderate tricuspid regurgitation, pulmonary a rtery pressure 45 mmHg Hypertension, monitor blood pressure Squamous cell carcinoma of the lung. Defer management to medical team Generalized weakness secondary to pneumonia. IRWIN PETERS MD Dec 12, 2022 09:46
--- NOTE | 2022-12-12 10:19 | Progress Note - Hospitalist ---
Subjective HPI/CC On Admission Date Seen by Provider: Dec 12, 2022 77M w/ a hx of lung cancer, who was d/c last Monday for a Klebsiella UTI with abx to take for 5 days, which he took, presents after having cough, SOB, and worsening weakness since then. Last night he was bed-bound and so decided to come in. CT shows he has b/l interstitial infiltrates, a small left effusion, and left lower lobe consolidation. He denies N/V, fever, chills, confusion, di zziness. He receives chemotherapy and radiation weekly. He hast not had his chemotherapy the last two Mondays, but did have his radiation last Monday. Subjective/Events-last exam Pt reports doing about the same today. No new complaints. Still short of breath. We spoke for a while about expectations and how he will likely have SOB for a while due to his PNA, lugn disease, and cancer. He seems to not understand this and tells me about a friend of his in grade school who had a collapsed lung but it healed. We discussed how young age helps with that and he is dealing with a different disease process. I recommended Palliative Bridge Program to him and he agreed to get info on it. I called and spoke with his sister about this as well. She recognizes that he is not doing well and was interested in hospice/palliative. Objective Exam Vital Signs Vital Signs Date Time Temp Pulse Resp B/P (MAP) Pulse Ox O2 Delivery O2 Flow Rate FiO2 12/12/22 11:07 36.2 97 17 118/61 (80) 91 Nasal Cannula 2.00 12/08/22 11:50 21 Capillary Refill : Less Than 3 Seconds Results/Procedures Lab Laboratory Tests 12/12/22 05:21 Patient resulted labs reviewed. Imaging: Reviewed Imaging Report Assessment/Plan Assessment and Plan Assess & Plan/Chief Complaint Sepsis due to pneumonia, resolved Acute respiratory failure with hypoxia SCC of the lung s/p Cefepime Supplemental oxygen as needed, 2 L continuous and 4 L with exertion Spoke with pt and his sister regardings goals of care- patient reports that bharat longoria wants to continue getting chemo and radiation as able. I informed him of oncology recs to take a break and how he may not have resolution of his symptoms. 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
[2022-12-12] MEDS: RT-Ipratropium/Albuterol NEB 3 ML VIAL INH SCH (11:04)
[2022-12-12 11:07] VITALS: BP 118/61
[2022-12-12] MEDS ORDERED: NF-NACL1GT PO (13:46)
[2022-12-12] MEDS ORDERED: METO50TA15 PO (13:46)
[2022-12-12] MEDS ORDERED: DRON400T6 PO (13:46)
[2022-12-12] MEDS ORDERED: APIX5TAB PO (13:46)
[2022-12-12] MEDS ORDERED: MIRT-47 PO (13:46)
--- NOTE | 2022-12-12 13:47 | Discharge Inst-Skilled Nursing ---
Discharge Inst-Skilled NF Chief Complaint 77M w/ a hx of lung cancer, who was d/c last Monday for a Klebsiella UTI with abx to take for 5 days, which he took, presents after having cough, SOB, and worsening weakness since then. Last night he was bed-bound and so decided to come in. CT shows he has b/l interstitial infiltrates, a small left effusion, and left lower lobe consolidation. He denies N/V, fever, chills, confusion, dizziness. He receives chemotherapy and radiation weekly. He hast not had his chemotherapy the last two Mondays, but did have his radiation last Monday. Consult/Follow Up/Orders Skilled NF Admit to: [facility] Certification ([facility]) I certify that SNF services are required to be given on an inpatient basis because of the above named patient's need for halfway care on a continuing basis for the conditions(s) for which he/she was receiving inpatient hospital services prior to his/her transfer to the SNF. Custodial Facility Order: Nursing Services, [employer] Evaluator-Evaluate & Treat, Physical Therapy-Evaluate & Treat Oxygen Delivery Method: Nasal Cannula Discharge Diet: No Restrictions Resuscitation Status: Do Not Resuscitate New & Resume Previous Orders Marco A Cat Dec 12, 2022 13:46 MARCO A CAT MD Dec 12, 2022 13:47
--- NOTE | 2022-12-12 13:49 | Discharge Summary ---
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 (4) Atrial fibrillation with RVR Status: Resolved (5) Hyponatremia Status: Acute (6) Poor prognosis Status: Acute (7) Severe protein-calorie malnutrition Status: Acute (8) Anemia Status: Chronic (9) Acute respiratory failure with hypoxia Status: Acute Discharge Summary Discharge Physical Exam Allergies: Coded Allergies: No Known Drug Allergies (Unverified , 10/10/22) Vitals & I&Os Vital Signs Date Time Temp Pulse Resp B/P (MAP) Pulse Ox O2 Delivery O2 Flow Rate FiO2 12/12/22 11:07 36.2 97 17 118/61 (80) 91 Nasal Cannula 2.00 12/08/22 11:50 21 Hospital Course Labs (last 24 hrs) Laboratory Tests 12/12/22 05:21: White Blood Count 3.2L, Red Blood Count 3.55L, Hemoglobin 9.5L, Hematocrit 29L, Mean Corpuscular Volume 80, Mean Corpuscular Hemoglobin 27, Mean Corpuscular Hemoglobin Concent 33, Red Cell Distribution Width 16.8H, Platelet Count 363, Mean Platelet Volume 9.3, Immature Granulocyte % (Auto) 1, Neutrophils (%) (Auto) 94H, Lymphocytes (%) (Auto) 3L, Monocytes (%) (Auto) 2, Eosinophils (%) (Auto) 1, Basophils (%) (Auto) 0, Neutrophils # (Auto) 3.0, Lymphocytes # (Auto) 0.1L, Monocytes # (Auto) 0.1, Eosinophils # (Auto) 0.0, Basophils # (Auto) 0.0, Immature Granulocyte # (Auto) 0.0, Sodium Level 132L, Potassium Level 3.7, Chloride Level 102, Carbon Dioxide Level 22, Anion Gap 8, Blood Urea Nitrogen 17, Creatinine 0.49L, Estimat Glomerular Filtration Rate 106, BUN/Creatinine Ratio 35, Glucose Level 91, Calcium Level 8.4L Microbiology 12/04/22 MRSA Screen - Final, Complete MRSA not isolated 12/02/22 Blood Culture - Final, Complete Patient resulted labs reviewed. Imaging: Reviewed Imaging Report Discharge Home Medications: Active Scripts Active Sodium Chloride 1,000 Mg Tablet.grant 1 Gm PO BID Eliquis (Apixaban) 5 Mg Tablet 5 Mg PO BID Multaq (Dronedarone HCl) 400 Mg Tablet 400 Mg PO BID Metoprolol Tartrate 50 Mg Tablet 50 Mg PO BID Mirtazapine 15 Mg Tab.rapdis 15 Mg PO HS Reported ALPRAZolam 0.25 Mg Tablet 0.25 Mg PO BID PRN Tylenol Extra Strength (Acetaminophen) 500 Mg Tablet 500-1,000 Mg PO Q6H PRN Instructions to patient/family Please see electronic discharge instructions given to patient. MARCO A LION MD Dec 12, 2022 13:49
== END 2022-12-12 15:15 | DRG 871 ==
LOC: EDUNIT# 11:50 → ER 11:52 → 4TH 14:08 → ICU 12-03 16:06 → 4TH 12-08 15:43
PROVIDERS: ADMIT Family Medicine; ATTEND Internal Medicine
PROC: 5A2204Z Restoration of Cardiac Rhythm, Single (ICD-10-PCS; principal; 2022-12-07)
DX: A41.59 Other Gram-negative sepsis (principal); E43 Unspecified severe protein-calorie malnutrition; J15.0 Pneumonia due to Klebsiella pneumoniae; J96.01 Acute respiratory failure with hypoxia; J44.0 Chronic obstructive pulmonary disease with (acute) lower respiratory infection; J44.1 Chronic obstructive pulmonary disease with (acute) exacerbation; C34.92 Malignant neoplasm of unspecified part of left bronchus or lung; E87.1 Hypo-osmolality and hyponatremia; I48.92 Unspecified atrial flutter; I48.19 Other persistent atrial fibrillation; Z68.1 Body mass index [BMI] 19.9 or less, adult; D64.9 Anemia, unspecified; G62.0 Drug-induced polyneuropathy; T45.1X5A Adverse effect of antineoplastic and immunosuppressive drugs, initial encounter; J84.10 Pulmonary fibrosis, unspecified; K59.00 Constipation, unspecified; R73.9 Hyperglycemia, unspecified; I08.1 Rheumatic disorders of both mitral and tricuspid valves; I10 Essential (primary) hypertension; Z91.81 History of falling; Z66 Do not resuscitate; Z20.822 Contact with and (suspected) exposure to COVID-19; F17.200 Nicotine dependence, unspecified, uncomplicated; R53.1 Weakness
CPT/HCPCS: 36415; 71045; 71046; 71275; 80048; 80053; 80202; 83605; 83735; 83880; 84100; 84439; 84443; 84484; 85007; 85025; 85027; 85610; 85730; 87040; 87070; 87081; 87205; 87636; 93005; 93306; 94640; 94664; 94760; 94761; 96361; 96365; 96367